=== PATIENT | female | born 1950 | race Hispanic/Latino ===

== ENCOUNTER → 2017-05-17 | Outpatient (CLI) | payer MEDICARE ==
[~2017-05-17] MED LIST: ADVAIR 250-501 EACH INH; ASPIRIN EC81 MG PO; CALTRATE 600 W1 EACH PO; CENTRUM SILVER1 EAC3 PO; CYCLOBENZAPRINE10 MG PO; DUONEB INH; FOLIC ACID1 MG PO; FUROSEMIDE40 MG PO; HYDROXYCHLOROQ200 MG PO; JEVITY237 ML GT; LIDODERM700 MG TOP; LISINOPRIL10 MG PO; LORAZEPAM0.5 MG PO; MAGNESIUM OXID400 MG PO; METHOTREXATE2.5 MG PO; METOCLOPRAMIDE10 MG PO; METOPROLOL SUCC25 MG PO; MIRTAZAPINE15 MG PO; NYSTATIN1 EAC1; NYSTATIN1 EAC1 TOP; PANTOPRAZOLE SO40 MG PO; POTASSIUM CHLO20 ME1; POTASSIUM CHLO20 ME1 PO; PREDNISONE10 MG PO; PREDNISONE20 MG PO; RANITIDINE HCL300 MG PO; REGLAN10 MG; RISPERIDONE0.25 MG PO; SERTRALINE HCL50 MG PO; SPIRONOLACTONE25 MG PO; TRUBIOTIC PO; TYLENOL325 MG PO; ULTRAM50 MG PO; VITAMIN D32000 UNIT PO; XARELTO20 MG PO; XOPENEX HFA15 GM; XOPENEX HFA15 GM NEB; ZOFRAN ODT4 MG; ZOFRAN ODT4 MG PO; ZOFRAN ODT4 MG SL; ZYRTEC10 M3; ZYRTEC10 MG PO; [UNRECOGNIZED DRUG - OTHER] PO
--- NOTE | 2017-05-17 11:27 | Diagnostic Imaging Report ---
PROCEDURE: Frontal and lateral views of the chest. COMPARISON: 01/15/17 INDICATIONS: FOLLOW UP FOR PNEUMONIA FINDINGS: Lines/tubes: None. Partially imaged IVC filter. Lungs: The lungs are well inflated and clear. There is no evidence of pneumonia or pulmonary edema. Pleura: There is no pleural effusion or pneumothorax. Heart and mediastinum: The heart and the mediastinum are normal. Bones: No acute bony abnormality. IMPRESSION: 1. No acute cardiopulmonary disease. Dictated by: Layton Munoz M.D. on 05/17/2017 at 11:28 Electronically approved by: Layton Munoz M.D. on 05/17/2017 at 11:28
== END | disposition home or self-care (01) ==
LOC: RAD 10:58
DX: Z09 Encounter for follow-up examination after completed treatment for conditions other than malignant neoplasm (principal); J18.9 Pneumonia, unspecified organism
CPT/HCPCS: 71046

== ENCOUNTER 2017-05-24 18:34 | Inpatient (IN) | payer MEDICARE ==
[~2017-05-24] VITALS: Ht 154.9 cm; Wt 76.2 kg
[2017-05-24] MEDS: SODIUM CHLORIDE 0.9% 1000ML 1,000 ML IV SCH ×2 (05:00→12:00)
[~2017-05-24 18:34] MED LIST changes: -CLINDAMYCIN HC300 MG PO; -LASIX40 MG PO
--- OUTSIDE RECORDS SUMMARY | 2017-05-24 18:37 | XMS REPORT ---
Author Author [facility] Address Unknown Phone Unavailable Care Team Providers Care Receiving Room Clerk Name Role Phone MAKEDA THOMAS Unavailable Unavailable ANGIE ALVA Unavailable Unavailable THESTRUSAPNA Nguyen Unavailable Unavailable Problems This patient has no known problems. Allergies, Adverse Reactions, Alerts This patient has no known allergies or adverse reactions. Medications This patient has no known medications. Results Test Description Test Time Test Comments Text Results Atomic Results Result Comments CHEST 2 VIEWS [place] [address] Patient Name: RIMA MASCORRO MR #: [id number] : 1950 Age/Sex: 67/F Req #: [id number] Adm Physician: Ordered by: MAKEDA THOMAS MD Report #: [id number] Location: [facility] Room/Bed: Procedure: [id number] DX/ CHEST 2 VIEWS Exam Date: 05/24/17 Exam Time: 1741 REPORT STATUS: Signed PROCEDURE: Frontal and lateral views of the chest. COMPARISON: 05/17/2017 and 01/15/2017 INDICATIONS: PNEUMONIA FINDINGS: Lines/tubes: None. Lungs: The lungs are well inflated and clear. There is no evidence of pneumonia or pulmonary edema. Pleura: There is no pleural effusion or pneumothorax. Heart and mediastinum: The heart and the mediastinum are normal. Bones: No acute bony abnormality. Multilevel spondylosis of the thoracic spine IMPRESSION: 1. No acute cardiopulmonary disease. Dictated by: Janis Christian M.D. on 05/24/2017 at 18:09 Electronically approved by: Janis Christian M.D. on 05/24/2017 at 18:09 Dictated By: JANIS CHRISTIAN MD 08 Transcribed By: AMAN on 05/24/171808 COPY TO: MAKEDA THOMAS MD CHEST 2 VIEWS [place] [address] Patient Name: RIMA MASCORRO MR #: [id number] : 1950 Age/Sex: 67/F Req #: [id number] Adm Physician: Ordered by: MAKEDA THOMAS MD Report #: [id number] Location: [facility] Room/Bed: Procedure: [id number] DX/ CHEST 2 VIEWS Exam Date: 05/17/17 Exam Time: 1100 REPORT STATUS: Signed PROCEDURE: Frontal and lateral views of the chest. COMPARISON: 01/15/17 INDICATIONS: FOLLOW UP FOR PNEUMONIA FINDINGS: Lines/tubes: None. Partially imaged IVC filter. Lungs: The lungs are well inflated and clear. There is no evidence of pneumonia or pulmonary edema. Pleura: There is no pleural effusion or pneumothorax. Heart and mediastinum: The heart and the mediastinum are normal. Bones: No acute bony abnormality. IMPRESSION: 1. No acute cardiopulmonary disease. Dictated by: Layton Beaver M.D. on 11/2017 at 11:28 Electronically approved by: Layton Beaver M.D. on 05/17 at 11:28 Dictated By: LAYTON BEAVER MD 27 Transcribed By: AMAN on 05/17/171127 COPY TO: MAKEDA THOMAS MD ABDOMEN COMP INCL UPR or DECUB [place] [address] Patient Name: RIMA MASCORRO MR #: [id number] : 1950 Age/Sex: 66/F Req #: [id number] Adm Physician: MAKEDA THOMAS MD Ordered by: LIUDMILA EDWARDS MD Report #: [id number] Location: [facility] Room/Bed: [facility] [place][note 2] Procedure: [id number] DX/ABDOMEN COMP INCL UPR or DECUB Exam Date: 01/16/17 Exam Time: 0625 REPORT STATUS: Signed EXAM: Abdomen, 2 Views INDICATION: Pain. COMPARISON: CT abdomen and pelvis 01/14/2017. Abdomen 3 views 01/15/2017 FINDINGS: LINES: Gastrostomy catheter balloon projecting over the expected region of the distal stomach. Bowel: No air fluid levels.. No pneumoperitoneum.. Moderate amount of retained feces and air are noted in the colon and rectum. Stable cortical calcification projects over the inferior pole of the left kidney. No calcifications project over the right renal shadow, expected course of the ureters bilaterally, and bladder. Soft tissues: IVC filter. Bones: No acute osseous abnormality. Degenerative changes of the lumbar spine and pelvis. Impression: No acute radiographic abnormality. Signed by: Dr. Pk Brian M.D. on 2016 7:57 AM Dictated By: PK BRIAN MD 6 Transcribed By: NAMRATA on 01/16/17756 COPY TO: LIUDMILA EDWARDS MD CHEST SINGLE (PORTABLE) [place] [address] Patient Name: RIMA MASCORRO MR #: [id number] : 1950 Age/Sex: 66/F Req #: [id number] Adm Physician: MAKEDA THOMAS MD Ordered by: LIUDMILA EDWARDS MD Report #: [id number] Location: [facility] Room/Bed: [facility] [place][note 2] Procedure: [id number] DX/CHEST SINGLE (PORTABLE) Exam Date: 01/15/17 Exam Time: 1458 REPORT STATUS: Signed EXAMINATION: Chest, CHEST SINGLE (PORTABLE) INDICATION: Chest pain COMPARISON: None FINDINGS: LINES: None. Heart: Normal cardiac silhouette. Vascular: The pulmonary vasculature is within normal limits. Atherosclerotic calcifications of the aortic arch. Mediastinum: No mediastinal, hilar, or axillary mass or lymphadenopathy. Lungs: No parenchymal mass. No focal consolidation. Pleura: No pleural effusion. No pneumothorax. Bones: No acute osseous abnormality. Degenerative changes of the thoracic spine. Soft tissues: Normal. Impression: No acute radiographic abnormality. Signed by: Dr. Pk Brian M.D. on 01/15/2017 3:20 PM Dictated By: PK BRIAN MD 1520 Transcribed By: NAMRATA on 01/15/17 152 COPY TO: LIUDMILA EDWARDS MD ABDOMEN COMP INCL UPR or DECUB [place] [address] Patient Name: RIMA MASCORRO MR #: [id number] : 1950 Age/Sex: 66/F Req #: [id number] Adm Physician: MAKEDA THOMAS MD Ordered by: MORENITA ISAAC MD Report #: [id number] Location: [facility] Room/Bed: [place] [address] Procedure: [id number] DX/ABDOMEN COMP INCL UPR or DECUB Exam Date: 01/15/17 Exam Time: 0740 REPORT STATUS: Signed EXAM: Abdomen, 3 Views INDICATION: Pain. COMPARISON: CT abdomen and pelvis 01/14/2017. FINDINGS: LINES: None. Bowel: No air fluid levels.. No pneumoperitoneum.. Moderate amount of retained feces and air are noted in the colon and rectum. Stable cortical calcification projects over the inferior pole of the left kidney. No calcifications project over the right renal shadow, expected course of the ureters bilaterally, and bladder. Soft tissues: IVC filter. Bones : No acute osseous abnormality. Degenerative changes of the lumbar spine and pelvis. Impression: No acute radiographic abnormality. Signed by: Dr. Pk Brian M.D. on 01/15/2017 8:43 AM Dictated By: PK BRIAN MD 2 Transcribed By: NAMRATA on 01/15/17842 COPY TO: MORENITA ISAAC MD CT ABDOMEN/PELVIS [place] [address] Patient Name: RIMA MASCORRO MR #: [id number] : 1950 Age/Sex: 66/F Req # : [id number] Adm Physician: Ordered by: MORENITA ISAAC MD Report # : [id number] Location: ER Room/Bed: Procedure: [id number] CT/CT ABDOMEN/PELVIS WO Exam Date: 01/14/17 Exam Time: 2315 REPORT STATUS: Signed EXAM: CT ABDOMEN AND PELVIS without IV CONTRAST DATE: 01/14/2017 9:55 PM Time stamp on Exam: 2316 hours INDICATION: Vomiting, abdominal pain COMPARISON: CT of the abdomen and pelvis April 29, 2016 TECHNIQUE: The abdomen and pelvis were scanned using a multidetector helical scanner. Coronal and sagittal reformations were obtained. Routine protocol performed. IV Contrast: None Oral Contrast: Gastrografin CTDIvol has been reviewed. It is below the limits set by the Radiation Protocol Committee (RPC). FINDINGS: LOWER THORAX: Tiny centrilobular nodules in each lung base consistent with nonspecific bronchiolitis. LIVER: No masses BILIARY: The gallbladder is not visualized. No ductal dilation. SPLEEN: No masses PANCREAS: The previously described pancreatic tail mass is not well characterized without IV contrast, however is smaller in size measuring 5 x 4.8 cm (previously 6.2 x 6.5 cm). ADRENALS: No nodules KIDNEYS: Stable coarse cortical calcification interpolar region of the left kidney. No nephroureterolithiasis or hydronephrosis. GI TRACT: Gastrostomy tube in the antrum of the stomach. In the previously described area of distal ileal narrowing and tethering, there is now increased distention of the involved loops of small bowel with associated lymphadenopathy, mesenteric edema and wall thickening. VESSELS: Advanced atherosclerotic changes. Infrarenal inferior vena cava filter. PERITONEUM/RETROPERITONEUM: No free air or fluid LYMPH NODES: Reactive mesenteric lymph nodes. REPRODUCTIVE ORGANS: Stable appearance. BLADDER: Unremarkable SOFT TISSUES: Unremarkable BONES: No suspicious bone lesions. IMPRESSION: In the right lower quadrant there has been interval worsening of the previously described tethered loops of distal ileum , now with increased dilation of isolated loops of small bowel, wall thickening and adjacent inflammation. Findings are concerning for at least partial closed-loop bowel obstruction. Please clinically correlate for possible bowel ischemia. Signed by: Dr. Prosper Phillips M.D. on 2016 11:47 PM Dictated By: PROSPER PHILLIPS MD 46 Transcribed By: NAMRATA on 01/14/172346 COPY TO: MORENITA ISAAC MD KNEE 1-2 VIEWS BILATERAL [place] [address] Patient Name: RIMA MASCORRO MR #: [id number] : 1950 Age/Sex: 66/F Req #: [id number] Adm Physician: Ordered by: ANGIE ALVA Report #: [id number] Location: [facility] Room/Bed: Procedure: [id number] DX/KNEE 1-2 VIEWS BILATERAL Exam Date: 12/14/16 Exam Time: 1130 REPORT STATUS: Signed PROCEDURE: KNEE 1-2 VIEWS BILATERAL COMPARISON: None. INDICATIONS: ARTHRITIS FINDINGS: Right: There are no acute, displaced fractures, dislocations, lytic or blastic lesions. The bones are well-mineralized. Minimal degenerative changes with presence of small patellar and tibial spine osteophytes. Joint spaces are relatively well-preserved. No suprapatellar effusion. Left: There are no acute, displaced fractures, dislocations, lytic or blastic lesions. The bones are well-mineralized. Minimal degenerative changes, with presence of tiny patellar and tibial spine osteophytes. oint spaces are relatively well-preserved. Trace right suprapatellar effusion. CONCLUSION: Minimal bilateral degenerative changes. No acute abnormalities. Linda Billingsley M.D. Dictated by: Lidna Billingsley M.D. on 12/14/2016 at 14:54 Electronically approved by: Linda Billingsley M.D. on 12/14/2016 at 14:54 Dictated By: LINDA BILLINGSLEY MD 1454 Transcribed By: AMAN on 12/14/16 1454 COPY TO: ANGIE ALVA (NON STAFF) HAND THREE VIEWS BILATERAL [place] [address] Patient Name: RIMA MASCORRO MR #: [id number] : 1950 Age/Sex: 66/F Req #: [id number] Adm Physician: Ordered by: ANGIE ALVA Report #: [id number] Location: [facility] Room/Bed: Procedure: [id number] DX/HAND THREE VIEWS BILATERAL Exam Date: 12/14/16 Exam Time: 1130 REPORT STATUS: Signed PROCEDURE: HAND THREE VIEWS BILATERAL TECHNIQUE: INDICATION: COMPARISON: None. FINDINGS: Degenerative changes of the wrist are visualized with multiple carpal carpal joints and near fusion of the bilateral radiocarpal joints. Relative sparing of the proximal and distal interphalangeal joints in the metacarpophalangeal joints. No acute fracture or dislocation. Bone mineralization is within normal limits. No expansile or lytic or sclerotic lesion. CONCLUSION: No acute radiographic abnormality. Degenerative changes of multiple carpal carpal joints and the bilateral radiocarpal joints. Dictated by: Pk Brian M.D. on 2016 at 11:53 Electronically approved by: Pk Brian M.D. on 2016 at 11:53 Dictated By: PK BRIAN MD 1153 Transcribed By: AMAN on 12/15/16 1153 COPY TO: ANGIE ALVA (NON STAFF) CHEST SINGLE (PORTABLE) [place] [address] Patient Name: RIMA MASCORRO MR #: [id number] : 1950 Age/Sex: 66/F Req #: [id number] Adm Physician: Ordered by: SAPNA ECHEVERRIA MD Report #: [id number] Location: ER Room/Bed: Procedure: [id number] DX/CHEST SINGLE (PORTABLE) Exam Date: 11/26/16 Exam Time: 1419 REPORT STATUS: Signed PROCEDURE: A single AP view of the chest. COMPARISON: Chest portable 07/31/2016. INDICATIONS: CANT SWALLOW SINCE YESTREDAY FINDINGS: Lines/tubes: None. Lungs: The lungs are well inflated and clear. There is no evidence of pneumonia or pulmonary edema. Pleura: There is no pleural effusion or pneumothorax. Heart and mediastinum: The heart and the mediastinum are unremarkable. Atherosclerotic calcifications. Bones: No acute bony abnormality. Degenerative changes of the thoracic spine. IMPRESSION: No acute radiographic abnormality. Dictated by: Pk Brian M.D. on 11/26/2016 at 14:48 Electronically approved by: Pk Brian M.D. on 11/26/2016 at 14:48 Dictated By: PK BRIAN MD 1448 Transcribed By: AMAN on 11/26/16 1448 COPY TO: SAPNA ECHEVERRIA MD
[2017-05-24] MEDS ORDERED: ACETAMINOPHEN 1000 MG/100 ML IV STA (19:31)
[2017-05-24] MEDS ORDERED: DIATRIZOATE MEGL/DIATRIZOA SOD 30 ML BTL PO ONE (19:42)
[2017-05-24] MEDS ORDERED: SODIUM CHLORIDE 0.9% 1000ML 1,000 ML IV ONE (19:45)
[2017-05-24] MEDS ORDERED: ONDANSETRON HCL INJ 2 MG/ML VIAL IV STA (19:47)
[2017-05-24 19:57] LABS: BASOPHILS # (AUTO) 0.1 (0.0-0.1); BASOPHILS % 0.3 % (0.0-1.0); HEMATOCRIT 44.1 % (34.2-44.1); HEMOGLOBIN 14.4 g/dL (12.0-16.0); LYMPHOCYTES # (AUTO) 1.9 (1.0-3.2); LYMPHOCYTES % 10.6 % (18.0-39.1); MEAN CORPUSCULAR HEMOGLOBIN 32.1 pg (28-32); MEAN CORPUSCULAR HGB CONC 32.7 g/dL (31-35); MEAN CORPUSCULAR VOLUME 98.4 fL (81-99); MONOCYTES # (AUTO) 2.1 (0.2-0.8); MONOCYTES % 11.3 % (4.4-11.3); NEUTROPHILS % 77.2 % (38.7-80.0); PLATELET COUNT 265 x10e3/uL (140-360); RED BLOOD COUNT 4.48 x10e6/uL (3.6-5.1); RED CELL DISTRIBUTION WIDTH 15.4 % (11.7-14.4)
[2017-05-24 20:06] LABS: BILIRUBIN,URINE 1+ (NEGATIVE); CLARITY,URINE SL CLOUDY (CLEAR); COLOR,URINE YELLOW (YELLOW); KETONES,URINE NEGATIVE (NEGATIVE); LEUKOCYTE ESTERASE ,URINE NEGATIVE (NEGATIVE); NITRITE,URINE NEGATIVE (NEGATIVE); PROTEIN,URINE DIPSTICK 1+ (NEGATIVE); URINE UROBILINOGEN 0.2 mg/dL (0.2 - 1)
[2017-05-24 20:10] LABS: EPITHELIAL CELLS,URINE FEW /LPF; RBC,URINE 0-5 /HPF (0-5)
[2017-05-24 20:16] LABS: ALBUMIN 3.3 g/dL (3.5-5.0); ALBUMIN/GLOBULIN RATIO 0.6 (0.8-2.0); ANION GAP 15.8 mmol/L (8-16); CALCIUM 9.4 mg/dL (8.4-10.2); CREATININE, SERUM 1.22 mg/dL (0.57-1.11); POTASSIUM 3.8 mmol/L (3.5-5.1)
[2017-05-24 20:28] LABS: LYMPHOCYTES % (MANUAL) 10 % (19-48); MONOCYTES % (MANUAL) 9 % (3.4-9.0); NEUTROPHILS % (MANUAL) 81 % (40-74); PLATELET ESTIMATE ADEQUATE; PLATELET MORPHOLOGY COMMENT NORMAL; RBC MORPHOLOGY COMMENT NORMAL
--- NOTE | 2017-05-24 22:17 | Diagnostic Imaging Report ---
EXAM: CT ABDOMEN/PELVIS WO DATE: 05/24/2017 7:31 PM INDICATION: Abdominal pain, fever COMPARISON: 01/14/2017 TECHNIQUE: The abdomen and pelvis were scanned using a multidetector helical scanner. Coronal and sagittal reformations were obtained. Routine protocol performed. IV Contrast: 0 ml Isovue 370 Oral contrast given. FINDINGS: Lack of IV contrast decreases sensitivity in evaluating abdominal and pelvic organs. LOWER THORAX: Mild bibasilar opacity and centrilobular nodules, similar to prior. LIVER/BILIARY: No masses. No ductal dilatation. GALLBLADDER: Unremarkable SPLEEN: Unremarkable PANCREAS: Redemonstration a complex cystic and solid appearing mass of the pancreatic tail measuring 4 x 4.7 cm; this appears smaller from prior (5 x 4.8 cm). ADRENALS: No nodules KIDNEYS: Symmetric perfusion. No enhancing masses. No hydronephrosis. GI TRACT: G-tube in place. Distended loops of small bowel with more marked dilation and fecalization of contents just proximal to the transition at the terminal ileum, which is narrowed (3-4 cm segment). Moderate associated mesenteric edema. No free fluid. VESSELS: Moderate to severe atherosclerotic calcifications. IVC filter is noted. PERITONEUM/RETROPERITONEUM: No free air LYMPH NODES: No lymphadenopathy REPRODUCTIVE ORGANS/BLADDER: Unremarkable SOFT TISSUES: Scarring along the lower anterior abdominal wall; correlate with history of prior . BONES: Severe multilevel degenerative changes. IMPRESSION: Examination is degraded by the lack of IV contrast. 1. Small bowel obstruction with transition at the terminal ileum, presumably related to stricture from known Crohn's disease. Moderate associated mesenteric edema mild free fluid. 2. Slight decrease in size of complex pancreatic tail lesion, incompletely assessed without IV contrast. Signed by: Dr Giselle Carr MD on 05/24/2017 10:14 PM
[2017-05-24] MEDS: PIPER-TAZ 3.375 GM 50 ML IV SCH (23:09)
[2017-05-25] VITALS (8 sets, daily range): BP systolic 104–170; BP diastolic 52–67
[2017-05-25] MEDS: ACETAMINOPHEN 1000 MG/100 ML IV SCH ×3 (00:26→11:37)
[2017-05-25] MEDS: METRONIDAZOLE 500MG/NS 100ML 100 ML IV SCH ×5 (01:02→23:02)
[2017-05-25] MEDS: PIPER-TAZ 3.375 GM 50 ML IV SCH ×3 (05:19→21:30)
[2017-05-25 06:40] LABS: BASOPHILS # (AUTO) 0.1 (0.0-0.1); BASOPHILS % 0.4 % (0.0-1.0); EOSINOPHILS % 0.1 % (0.0-6.0); HEMOGLOBIN 12.2 g/dL (12.0-16.0); LYMPHOCYTES # (AUTO) 2.5 (1.0-3.2); LYMPHOCYTES % 18.8 % (18.0-39.1); MEAN CORPUSCULAR HEMOGLOBIN 31.8 pg (28-32); MEAN CORPUSCULAR HGB CONC 32.1 g/dL (31-35); NEUTROPHILS # (AUTO) 8.6 (2.1-6.9); NEUTROPHILS % 65.2 % (38.7-80.0); PLATELET COUNT 228 x10e3/uL (140-360); RED BLOOD COUNT 3.84 x10e6/uL (3.6-5.1); RED CELL DISTRIBUTION WIDTH 15.5 % (11.7-14.4)
[2017-05-25 07:17] LABS: ALBUMIN 2.6 g/dL (3.5-5.0); ALBUMIN/GLOBULIN RATIO 0.6 (0.8-2.0); ANION GAP 11.3 mmol/L (8-16); CALCIUM 8.2 mg/dL (8.4-10.2); CREATININE, SERUM 0.98 mg/dL (0.57-1.11); POTASSIUM 3.3 mmol/L (3.5-5.1)
[2017-05-25 08:32] LABS: ANISOCYTOSIS SLIGHT; BAND NEUTROPHILS % (MANUAL) 2 %; LYMPHOCYTES % (MANUAL) 14 % (19-48); MONOCYTES % (MANUAL) 12 % (3.4-9.0); NEUTROPHILS % (MANUAL) 72 % (40-74); PLATELET ESTIMATE ADEQUATE; PLATELET MORPHOLOGY COMMENT NORMAL; RBC MORPHOLOGY COMMENT NORMAL
[2017-05-25] MEDS: SODIUM CHLORIDE 0.9% 1000ML 1,000 ML IV SCH ×3 (11:30→21:57)
[2017-05-25] MEDS: ONDANSETRON HCL INJ 2 MG/ML VIAL IV PRN (11:37)
[2017-05-25] MEDS ORDERED: HYDROMORPHONE 1MG/1ML INJ IV PRN (17:00)
[2017-05-25] MEDS ORDERED: ACETAMINOPHEN 1000 MG/100 ML IV PRN (17:00)
[2017-05-26] VITALS (9 sets, daily range): BP systolic 114–134; BP diastolic 56–60
[2017-05-26] MEDS: METRONIDAZOLE 500MG/NS 100ML 100 ML IV SCH ×4 (05:41→23:14)
[2017-05-26] MEDS: SODIUM CHLORIDE 0.9% 1000ML 1,000 ML IV SCH ×3 (09:20→21:37)
[2017-05-26] MEDS: PIPER-TAZ 3.375 GM 50 ML IV SCH ×2 (13:51→21:37)
[2017-05-27] VITALS: BP 113/56
[2017-05-27] MEDS: PIPER-TAZ 3.375 GM 50 ML IV SCH ×3 (05:12→22:30)
[2017-05-27] MEDS: SODIUM CHLORIDE 0.9% 1000ML 1,000 ML IV SCH ×2 (05:12→15:25)
[2017-05-27] MEDS: METRONIDAZOLE 500MG/NS 100ML 100 ML IV SCH ×3 (05:12→18:01)
[2017-05-27 07:05] VITALS: BP 122/60
[2017-05-27 07:35] VITALS: BP 122/60
[2017-05-27 11:25] VITALS: BP 134/63
[2017-05-27 15:46] VITALS: BP 167/65
[2017-05-27 20:00] VITALS: BP 137/60
[2017-05-28] VITALS (7 sets, daily range): BP systolic 131–152; BP diastolic 60–67
[2017-05-28] MEDS: ONDANSETRON HCL INJ 2 MG/ML VIAL IV PRN (00:21)
[2017-05-28] MEDS: METRONIDAZOLE 500MG/NS 100ML 100 ML IV SCH ×4 (00:24→18:45)
[2017-05-28] MEDS: SODIUM CHLORIDE 0.9% 1000ML 1,000 ML IV SCH ×3 (02:00→22:33)
[2017-05-28] MEDS ORDERED: DIATRIZOATE MEGL/DIATRIZOA SOD 30 ML BTL PO ONE ×2 (02:12→17:25)
[2017-05-28] MEDS: PIPER-TAZ 3.375 GM 50 ML IV SCH ×2 (06:10→14:36)
--- NOTE | 2017-05-28 15:24 | Diagnostic Imaging Report ---
EXAM: Abdomen 2 Views INDICATION: \S\small bowel obstruction COMPARISON: CT abdomen and pelvis 05/24/2017. KUB 01/16/2017. FINDINGS: Relative paucity of stool in the colon. No dilated loops of small bowel. Several air-filled loops of small bowel in the midabdomen measured 3.5 cm. Multiple air-fluid levels visualized. Infrarenal IVC filter is in place with the superior end at L2 superior endplate. No renal calculi. 0.9 cm parenchymal calcification in the lower pole of the left kidney. Diffuse small vessel vascular calcifications. No abnormal soft tissue masses. 2.3 x 8.7 cm Triangular wedge-shaped object overlies the pelvis. Moderate degenerative changes in the lumbar spine and pelvis. IMPRESSION: 1. 2.3 x 8.7 cm Triangular wedge-shaped object overlies the pelvis. This may be part of the patient's percutaneous gastrostomy tube. 2. Prominent small bowel loops in the midabdomen with air-fluid levels, likely small bowel obstruction. Signed by: Dr. Femi Diaz M.D. on 05/28/2017 3:20 PM
[2017-05-28] MEDS ORDERED: ACETAMINOPHEN 325 MG SUPP PR PRN (16:00)
[2017-05-28 16:27] LABS: BASOPHILS % 0.3 % (0.0-1.0); EOSINOPHILS # (AUTO) 0.1 (0.0-0.4); HEMATOCRIT 34.9 % (34.2-44.1); HEMOGLOBIN 10.9 g/dL (12.0-16.0); LYMPHOCYTES # (AUTO) 3.7 (1.0-3.2); LYMPHOCYTES % 35.1 % (18.0-39.1); MEAN CORPUSCULAR HEMOGLOBIN 31.6 pg (28-32); MEAN CORPUSCULAR HGB CONC 31.2 g/dL (31-35); MEAN CORPUSCULAR VOLUME 101.2 fL (81-99); MONOCYTES % 9.7 % (4.4-11.3); NEUTROPHILS # (AUTO) 5.5 (2.1-6.9); NEUTROPHILS % 52.7 % (38.7-80.0); PLATELET COUNT 196 x10e3/uL (140-360); RED BLOOD COUNT 3.45 x10e6/uL (3.6-5.1); RED CELL DISTRIBUTION WIDTH 15.6 % (11.7-14.4)
[2017-05-28 16:44] LABS: ANION GAP 8.9 mmol/L (8-16); BLOOD UREA NITROGEN 9 mg/dL (7-26); BUN/CREATININE RATIO 11 (6-25); CALCIUM 7.6 mg/dL (8.4-10.2); CARBON DIOXIDE 21 mmol/L (22-29); CHLORIDE 111 mmol/L (98-107); CREATININE, SERUM 0.81 mg/dL (0.57-1.11); EST GLOMERULAR FILTRATION RATE > 60 ML/MIN (60-); GLUCOSE 96 mg/dL (74-118); MAGNESIUM 1.5 MG/DL (1.3-2.1); SODIUM 138 mmol/L (136-145)
[2017-05-28 17:16] LABS: POTASSIUM 2.9 mmol/L (3.5-5.1)
[2017-05-28] MEDS ORDERED: POTASSIUM CHLORIDE 20MEQ/100ML 100 ML IV ONE (18:30)
[2017-05-28] MEDS ORDERED: CLINDAMYCIN HC300 MG PO (19:45)
[2017-05-28] MEDS ORDERED: LASIX40 MG PO (19:46)
[2017-05-28] MEDS: NYSTATIN 15 GM POWDER UD BTL TOP SCH (22:00)
[2017-05-28] MEDS: ONDANSETRON HCL 4 MG ORAL DISINTEGRATING TAB PO PRN (22:20)
--- NOTE | 2017-05-28 23:59 | Diagnostic Imaging Report ---
CHEST XRAY LINE PLACEMENT, Technique: CHEST XRAY LINE PLACEMENT Comparison: 01/15/2017, 07/31/2016 Clinical history: \S\PICC LINE PLACE TO R UPPER ARM DISCUSSION: See impression IMPRESSION: 1. Lines/tubes: Right PICC terminates over the expected proximal SVC. 2. Stable cardiomediastinal silhouette. 3. Mild central vascular congestion/crowding. 4. No effusion or pneumothorax. Signed by: Dr Giselle Carr MD on 05/28/2017 11:56 PM
[2017-05-29] VITALS (7 sets, daily range): BP systolic 129–145; BP diastolic 58–67
[2017-05-29] MEDS: PIPER-TAZ 3.375 GM 50 ML IV SCH ×4 (00:16→20:54)
[2017-05-29] MEDS ORDERED: SODIUM CHLORIDE 0.9% 50ML 50 ML ONE (00:53)
[2017-05-29] MEDS ORDERED: IOPAMIDOL 370 MG/ML 200 ML INFUS..BTL INJ ONE (00:53)
[2017-05-29] MEDS: METRONIDAZOLE 500MG/NS 100ML 100 ML IV SCH ×4 (01:30→18:37)
--- NOTE | 2017-05-29 02:07 | Diagnostic Imaging Report ---
EXAM: CT ABDOMEN/PELVIS W DATE: 05/29/2017 12:20 AM INDICATION: Small bowel obstruction COMPARISON: 05/24/2017 TECHNIQUE: The abdomen and pelvis were scanned using a multidetector helical scanner. Coronal and sagittal reformations were obtained. Routine protocol performed. IV Contrast: 100 ml Isovue 370 Oral contrast was administered. FINDINGS: LOWER THORAX: Development of small pleural effusion and atelectasis. Increased cluster of centrilobular nodules in the right middle lobe, likely infectious. LIVER/BILIARY: No masses. No ductal dilatation. GALLBLADDER: Unremarkable SPLEEN: Unremarkable PANCREAS: Stable complex cystic and solid appearing mass of the pancreatic tail measuring 4.1 x 4.8 cm. ADRENALS: No nodules KIDNEYS: Symmetric perfusion. No enhancing masses. No hydronephrosis. GI TRACT: G-tube in place. Improved small bowel dilatation from prior. There is mild small bowel wall thickening and strictures involving the ileum (about 3 cm) and terminal ileum (about 5-6 cm segment). Moderate associated mesenteric edema. No free fluid VESSELS: Unchanged IVC filter. Moderate atherosclerotic changes. PERITONEUM/RETROPERITONEUM: No free air. Trace pelvic free fluid. Residual stranding and edema in the right lower quadrant. LYMPH NODES: Scattered small reactive nodes in the right lower quadrant. REPRODUCTIVE ORGANS/BLADDER: Unremarkable SOFT TISSUES: Unremarkable BONES: No suspicious bone lesions. IMPRESSION: Resolving small bowel obstruction with persistent findings of Crohn's disease. Signed by: Dr Giselle Carr MD on 05/29/2017 2:03 AM
[2017-05-29] MEDS: SODIUM CHLORIDE 0.9% 1000ML 1,000 ML IV SCH ×2 (05:17→22:33)
[2017-05-29 07:49] LABS: ANION GAP 9.1 mmol/L (8-16); BLOOD UREA NITROGEN 6 mg/dL (7-26); BUN/CREATININE RATIO 7 (6-25); CARBON DIOXIDE 22 mmol/L (22-29); CHLORIDE 110 mmol/L (98-107); CREATININE, SERUM 0.82 mg/dL (0.57-1.11); EST GLOMERULAR FILTRATION RATE > 60 ML/MIN (60-); GLUCOSE 79 mg/dL (74-118); POTASSIUM 3.1 mmol/L (3.5-5.1); SODIUM 138 mmol/L (136-145)
--- NOTE | 2017-05-29 08:48 | Diagnostic Imaging Report ---
Two view abdomen series. CPT 49139 CLINICAL HISTORY: Small bowel obstruction, history of Crohn's disease TECHNIQUE: Flat and upright views of the abdomen obtained. COMPARISON: CT abdomen/pelvis 0102 hours. FINDINGS: Bowel: No enteric contrast is identified on these images. Small bowel loops in the midabdomen measuring up to 3.7 cm in diameter with multiple air-fluid levels. There is no pneumatosis. Calcifications: Calcification in the left hemiabdomen corresponds to a left renal calcification measuring 10 mm. Free air: No free air is seen under hemidiaphragms on upright film. Medical devices: Percutaneous gastrostomy and IVC filter are stable. Other: There is excreted contrast in the bladder. No evidence of contrast outlining the renal shadows or along the course of the ureters. Lung bases: Clear. IMPRESSION: Dilated small bowel loops with air-fluid levels consistent with partial small bowel obstruction. No perforation. Signed by: Dr. Kelechi Tan MD on 05/29/2017 8:44 AM
[2017-05-29] MEDS: NYSTATIN 15 GM POWDER UD BTL TOP SCH ×2 (09:00→17:23)
[2017-05-29] MEDS ORDERED: HYDROCODONE/APAP 7.5MG-325MG 1 EA TAB PO PRN (10:00)
[2017-05-29] MEDS ORDERED: HYDROMORPHONE 1MG/1ML INJ IV PRN (10:00)
[2017-05-29] MEDS ORDERED: TRAMADOL HCL 50 MG TAB PO PRN (10:45)
[2017-05-29] MEDS ORDERED: POTASSIUM CHLORIDE 20 MEQ TAB CR PO ONE ×2 (11:30→16:15)
--- NOTE | 2017-05-29 15:30 | Progress Note ---
DATE: INTERNAL MEDICINE PROGRESS NOTE She is doing much better. She is tolerating a liquid diet. CT of the abdomen showed resolving of the small-bowel obstruction. PHYSICAL EXAMINATION VITALS: Blood pressure 136/63, temperature 97.2, heart rate 69 per minute, respiratory rate is 16 per minute, oxygen saturation 97%. BLOOD WORK: We have a BMP with sodium of 138, potassium 3.1, chloride 110, CO2 22, BUN 6, creatinine 0.82, glucose 79. The CBC with white blood count 17.4, hemoglobin 10.9, hematocrit 34.9, and platelet count 186,000. AST 21, ALT 20, total bilirubin 1, alkaline phosphatase 98. FINAL IMPRESSION 1. Small-bowel obstruction, most likely secondary to Crohn's disease exacerbation, which is resolving. 2. Coronary artery disease. 3. Crohn disease. 4. Hypokalemia. PLAN OF TREATMENT: Continue liquid diet. Continue Zosyn 3.375 g IVPB q.8 h. Flagyl 500 mg IV q.6 h. Continue normal saline at 125 mL an hour. Wean off as tolerated once she is able to tolerate the liquid diet. Zofran 4 mg IV q.4 h. as needed. Tramadol 50 mg q.6 h. as needed. Tylenol 325 mg q.4 h. as needed. Nystatin twice a day. Also, potassium has been replaced. We are going to recheck the potassium level tomorrow. Magnesium is normal. Job#: [id number] MELANIE
[2017-05-29] MEDS: ONDANSETRON HCL 4 MG ORAL DISINTEGRATING TAB PO PRN (21:52)
[2017-05-30] VITALS (8 sets, daily range): BP systolic 134–156; BP diastolic 61–70
[2017-05-30] MEDS: METRONIDAZOLE 500MG/NS 100ML 100 ML IV SCH ×5 (00:06→23:23)
[2017-05-30] MEDS: SODIUM CHLORIDE 0.9% 1000ML 1,000 ML IV SCH ×4 (04:44→14:33)
[2017-05-30] MEDS: PIPER-TAZ 3.375 GM 50 ML IV SCH ×3 (06:23→21:36)
[2017-05-30 07:40] LABS: ANION GAP 10.9 mmol/L (8-16); BLOOD UREA NITROGEN < 5 mg/dL (7-26); CARBON DIOXIDE 20 mmol/L (22-29); CHLORIDE 113 mmol/L (98-107); CREATININE, SERUM 0.81 mg/dL (0.57-1.11); EST GLOMERULAR FILTRATION RATE > 60 ML/MIN (60-); GLUCOSE 79 mg/dL (74-118); POTASSIUM 4.9 mmol/L (3.5-5.1); SODIUM 139 mmol/L (136-145)
[2017-05-30 07:46] LABS: BUN/CREATININE RATIO 6 (6-25)
[2017-05-30 07:48] LABS: CALCIUM 6.6 mg/dL (8.4-10.2)
[2017-05-30] MEDS: NYSTATIN 15 GM POWDER UD BTL TOP SCH ×2 (09:00→16:41)
--- NOTE | 2017-05-30 12:04 | Diagnostic Imaging Report ---
PROCEDURE:ABDOMEN COMP INCL UPR OR DECUB INDICATION:Obstruction. COMPARISON:Abdomen 2 views 05/29/2017. CT abdomen and pelvis 05/29/2017 FINDINGS:Gastrostomy catheter is present with the tip projecting over the expected region of the distal stomach. No air-fluid levels or pneumoperitoneum. Calcification projects over the left midabdomen, unchanged since previous examination. Degenerative changes are present in the lumbar spine. CONCLUSION: No acute radiographic abnormality. Dictated by: Rafa Nance M.D. on 05/30/2017 at 12:06 Electronically approved by: Rafa Nance M.D. on 05/30/2017 at 12:06
[2017-05-30] MEDS: ONDANSETRON HCL INJ 2 MG/ML VIAL IV PRN (19:18)
[2017-05-31] VITALS (7 sets, daily range): BP systolic 125–140; BP diastolic 60–64
[2017-05-31] MEDS: METRONIDAZOLE 500MG/NS 100ML 100 ML IV SCH ×4 (05:41→23:28)
[2017-05-31] MEDS: PIPER-TAZ 3.375 GM 50 ML IV SCH ×3 (06:33→21:42)
[2017-05-31] MEDS: NYSTATIN 15 GM POWDER UD BTL TOP SCH ×2 (07:33→17:18)
[2017-05-31] MEDS: ONDANSETRON HCL 4 MG ORAL DISINTEGRATING TAB PO PRN ×3 (07:33→17:00)
[2017-06-01 01:13] VITALS: BP 125/62
[2017-06-01 04:45] VITALS: BP 141/60
[2017-06-01 07:54] VITALS: BP 147/66
[2017-06-01] MEDS: NYSTATIN 15 GM POWDER UD BTL TOP SCH ×2 (09:00→17:00)
[2017-06-01 11:25] VITALS: BP 148/68
[2017-06-01] MEDS ORDERED: METHOTREXATE SOD 2.5 MG TAB PO SCH (12:15)
[2017-06-01] MEDS ORDERED: LORAZEPAM 0.5 MG TAB PO PRN (12:15)
[2017-06-01] MEDS ORDERED: TRAMADOL HCL 50 MG TAB PO PRN (12:15)
[2017-06-01] MEDS ORDERED: METOPROLOL SUCCINATE 25 MG TAB XL PO PRN (12:15)
[2017-06-01] MEDS ORDERED: MUPIROCIN 2% OINT 22 GM TUBE ONE (16:11)
--- NOTE | 2017-06-01 16:46 | Operative Report ---
DATE OF PROCEDURE: June 01, 2017 REFERRING PHYSICIAN: Dr. Siva Thomas. PROCEDURE PERFORMED: Esophagogastroduodenoscopy with percutaneous endoscopic gastrotomy tube removal. INDICATIONS FOR ESOPHAGOGASTRODUODENOSCOPY: Patient is status post G-tube insertion, dysphagia resolved. Patient is in for an EGD and PEG tube removal. MEDICATION: Patient was done under MAC. Please see anesthesiologist's note. PROCEDURE: With the patient in the supine position, the flexible fiberoptic Olympus gastroscope was introduced into the esophagus under direct visualization without any difficulty. There was some patchy erythema noted in the distal esophagus. The scope was then advanced with ease into the stomach, traversing a moderate-sized hiatal hernia. Mucosa overlying the antrum and the body revealed some patchy erythema, and the pylorus was of normal contour and shape, was intubated with ease, and the scope was advanced all the way to the 2nd portion of the duodenum. The scope was then withdrawn slowly. Mucosa overlying the proximal 2nd portion and the duodenal bulb revealed some patchy erythema. The scope was then withdrawn back into the stomach, and the PEG tube was then removed per the pull traction method. The scope was subsequently withdrawn. Patient tolerated the procedure well. IMPRESSION: 1. Mild distal esophagitis. 2. Hiatal hernia. 3. Gastritis. 4. Percutaneous endoscopic gastrotomy tube removed in the usual traction method. Patient tolerated the procedure well. Job#: [id number] EV cc:SIVA THOMAS MD
[2017-06-01 16:47] VITALS: BP 139/64
[2017-06-01] MEDS ORDERED: LIDOCAINE HCL 2% LOCAL INJ 5 ML SDV VIAL INJ ONE (17:08)
[2017-06-01] MEDS ORDERED: PROPOFOL IV EMULSION 10 MG/ML 50 ML VIAL ONE (17:08)
[2017-06-01 20:00] VITALS: BP 164/72
[2017-06-02] VITALS (8 sets, daily range): BP systolic 125–166; BP diastolic 60–75
[2017-06-02] MEDS: ONDANSETRON HCL 4 MG ORAL DISINTEGRATING TAB PO PRN ×2 (07:00→13:00)
[2017-06-02] MEDS ORDERED: RIVAROXABAN 20 MG TABLET PO SCH (09:00)
[2017-06-02] MEDS ORDERED: FUROSEMIDE 40 MG TAB PO SCH (09:00)
[2017-06-02] MEDS ORDERED: PREDNISONE 10 MG TAB PO SCH (09:00)
[2017-06-02] MEDS: FOLIC ACID 1 MG TAB PO SCH (09:00)
[2017-06-02] MEDS: POTASSIUM CHLORIDE 20 MEQ TAB CR PO SCH (09:00)
[2017-06-02] MEDS: RIVAROXABAN 15 MG TABLET PO SCH (09:29)
[2017-06-02] MEDS: FUROSEMIDE 40 MG TAB PO SCH (09:29)
[2017-06-02] MEDS: SERTRALINE HCL 50 MG TAB PO SCH (09:29)
[2017-06-02] MEDS: PANTOPRAZOLE SOD 40 MG TABEC PO SCH (09:29)
[2017-06-02] MEDS: PREDNISONE 5 MG TAB PO SCH (09:29)
[2017-06-02] MEDS: NYSTATIN 15 GM POWDER UD BTL TOP SCH ×2 (09:29→16:00)
[2017-06-02] MEDS ORDERED: ZINC OXIDE 30 GM TUBE TOP SCH (14:00)
[2017-06-02] MEDS ORDERED: MUPIROCIN 2% OINT 22 GM TUBE TOP SCH (14:00)
[2017-06-02] MEDS ORDERED: CALCIUM CHLORIDE IV ONE (18:00)
[2017-06-02] MEDS ORDERED: SODIUM CHLORIDE 0.9% IV ONE (18:00)
[2017-06-03] VITALS: BP 139/70
[2017-06-03 04:00] VITALS: BP 129/58
[2017-06-03 06:56] LABS: BASOPHILS # (AUTO) 0.1 (0.0-0.1); BASOPHILS % 0.4 % (0.0-1.0); EOSINOPHILS # (AUTO) 0.3 (0.0-0.4); EOSINOPHILS % 2.3 % (0.0-6.0); HEMATOCRIT 35.9 % (34.2-44.1); HEMOGLOBIN 11.5 g/dL (12.0-16.0); LYMPHOCYTES # (AUTO) 4.8 (1.0-3.2); LYMPHOCYTES % 40.3 % (18.0-39.1); MEAN CORPUSCULAR HEMOGLOBIN 31.9 pg (28-32); MEAN CORPUSCULAR VOLUME 99.4 fL (81-99); MONOCYTES # (AUTO) 1.3 (0.2-0.8); MONOCYTES % 10.7 % (4.4-11.3); NEUTROPHILS # (AUTO) 5.5 (2.1-6.9); NEUTROPHILS % 45.5 % (38.7-80.0); PLATELET COUNT 237 x10e3/uL (140-360); RED BLOOD COUNT 3.61 x10e6/uL (3.6-5.1); RED CELL DISTRIBUTION WIDTH 16.4 % (11.7-14.4)
[2017-06-03 07:26] LABS: ANION GAP 8.4 mmol/L (8-16); BLOOD UREA NITROGEN 8 mg/dL (7-26); BUN/CREATININE RATIO 9 (6-25); CALCIUM 8.5 mg/dL (8.4-10.2); CARBON DIOXIDE 25 mmol/L (22-29); CHLORIDE 110 mmol/L (98-107); CREATININE, SERUM 0.91 mg/dL (0.57-1.11); EST GLOMERULAR FILTRATION RATE > 60 ML/MIN (60-); GLUCOSE 78 mg/dL (74-118); POTASSIUM 3.4 mmol/L (3.5-5.1); SODIUM 140 mmol/L (136-145)
[2017-06-03 08:02] VITALS: BP 129/60
[2017-06-03 08:20] VITALS: BP 129/60
[2017-06-03] MEDS: FOLIC ACID 1 MG TAB PO SCH (08:22)
[2017-06-03] MEDS: POTASSIUM CHLORIDE 20 MEQ TAB CR PO SCH (08:23)
[2017-06-03] MEDS: PREDNISONE 5 MG TAB PO SCH (08:23)
[2017-06-03] MEDS: PANTOPRAZOLE SOD 40 MG TABEC PO SCH (08:23)
[2017-06-03] MEDS: RIVAROXABAN 15 MG TABLET PO SCH (08:23)
[2017-06-03] MEDS: NYSTATIN 15 GM POWDER UD BTL TOP SCH (08:23)
[2017-06-03] MEDS: SERTRALINE HCL 50 MG TAB PO SCH (08:23)
[2017-06-03] MEDS: FUROSEMIDE 40 MG TAB PO SCH (08:23)
[2017-06-03 12:00] VITALS: BP 130/60
== END 2017-06-03 14:30 | disposition home or self-care (01) | DRG 327 ==
LOC: ER 18:34 → MED/SURG3 23:05
PROC: 02HV33Z Insertion of Infusion Device into Superior Vena Cava, Percutaneous Approach (ICD-10-PCS; 2017-05-28)
PROC: 0DP68UZ Removal of Feeding Device from Stomach, Via Natural or Artificial Opening Endoscopic (ICD-10-PCS; 2017-06-01)
PROC: 0DJ08ZZ Inspection of Upper Intestinal Tract, Via Natural or Artificial Opening Endoscopic (ICD-10-PCS; principal; 2017-06-01 15:30)
DX: K50.912 Crohn's disease, unspecified, with intestinal obstruction (principal); I10 Essential (primary) hypertension; K20.9 Esophagitis, unspecified; K44.9 Diaphragmatic hernia without obstruction or gangrene; K29.70 Gastritis, unspecified, without bleeding; I25.10 Atherosclerotic heart disease of native coronary artery without angina pectoris; E87.6 Hypokalemia; Z86.718 Personal history of other venous thrombosis and embolism; Z79.01 Long term (current) use of anticoagulants; Z86.711 Personal history of pulmonary embolism; Z95.828 Presence of other vascular implants and grafts
CPT/HCPCS: 36415; 36569; 71045; 74176; 74177; 74470; 80048; 80053; 81001; 82150; 82550; 82553; 82948; 83690; 83735; 84484; 85025; 86301; 87040; 87086; 93005; 96361; 96367; 99285; J1170; J2001; J2405; J2543; J3480; J7030; J7512; Q9967

== ENCOUNTER → 2017-05-24 | Outpatient (CLI) | payer MEDICARE ==
[~2017-05-24] MED LIST changes: +CLINDAMYCIN HC300 MG PO; +LASIX40 MG PO
--- NOTE | 2017-05-24 18:08 | Diagnostic Imaging Report ---
PROCEDURE: Frontal and lateral views of the chest. COMPARISON: 05/17/2017 and 01/15/2017 INDICATIONS: PNEUMONIA FINDINGS: Lines/tubes: None. Lungs: The lungs are well inflated and clear. There is no evidence of pneumonia or pulmonary edema. Pleura: There is no pleural effusion or pneumothorax. Heart and mediastinum: The heart and the mediastinum are normal. Bones: No acute bony abnormality. Multilevel spondylosis of the thoracic spine IMPRESSION: 1. No acute cardiopulmonary disease. Dictated by: Federico Christian M.D. on 05/24/2017 at 18:09 Electronically approved by: Federico Christian M.D. on 05/24/2017 at 18:09
== END ==
LOC: RAD 17:27
DX: Z09 Encounter for follow-up examination after completed treatment for conditions other than malignant neoplasm (principal); J18.9 Pneumonia, unspecified organism
CPT/HCPCS: 71046

== ENCOUNTER 2017-10-24 19:01 | Inpatient (IN) | payer MEDICARE ==
[~2017-10-24] VITALS: Ht 154.9 cm; Wt 74.8 kg
[~2017-10-24 19:01] MED LIST changes: +CLINDAMYCIN HC300 MG PO; +LASIX40 MG PO
[2017-10-24 21:22] LABS: BASOPHILS # (AUTO) 0.1 (0.0-0.1); BASOPHILS % 0.5 % (0.0-1.0); EOSINOPHILS # (AUTO) 0.2 (0.0-0.4); EOSINOPHILS % 1.4 % (0.0-6.0); HEMATOCRIT 37.3 % (34.2-44.1); HEMOGLOBIN 11.8 g/dL (12.0-16.0); LYMPHOCYTES # (AUTO) 4.2 (1.0-3.2); LYMPHOCYTES % 35.1 % (18.0-39.1); MEAN CORPUSCULAR HEMOGLOBIN 32.5 pg (28-32); MEAN CORPUSCULAR HGB CONC 31.6 g/dL (31-35); MEAN CORPUSCULAR VOLUME 102.8 fL (81-99); MONOCYTES # (AUTO) 1.3 (0.2-0.8); MONOCYTES % 11.1 % (4.4-11.3); NEUTROPHILS # (AUTO) 6.1 (2.1-6.9); NEUTROPHILS % 51.4 % (38.7-80.0); PLATELET COUNT 271 x10e3/uL (140-360); RED BLOOD COUNT 3.63 x10e6/uL (3.6-5.1); RED CELL DISTRIBUTION WIDTH 15.4 % (11.7-14.4)
[2017-10-24 21:33] LABS: INR 1.35; PARTIAL THROMBOPLASTIN TIME 30.8 seconds (23.8-35.5); PROTHROMBIN TIME 15.7 seconds (11.9-14.5)
[2017-10-24 21:41] LABS: ALBUMIN 3.9 g/dL (3.5-5.0); ALBUMIN/GLOBULIN RATIO 0.9 (0.8-2.0); ANION GAP 13.7 mmol/L (8-16); CALCIUM 9.6 mg/dL (8.4-10.2); CREATININE, SERUM 1.11 mg/dL (0.57-1.11); MAGNESIUM 1.9 MG/DL (1.3-2.1); POTASSIUM 3.7 mmol/L (3.5-5.1)
[2017-10-24 21:47] LABS: CREATINE KINASE MB 1.2 ng/mL (0-5.0)
[2017-10-24 22:06] LABS: CLARITY,URINE SL CLOUDY (CLEAR); COLOR,URINE AMBER (YELLOW)
[2017-10-24 22:07] LABS: BILIRUBIN,URINE 1+ (NEGATIVE); KETONES,URINE NEGATIVE (NEGATIVE); LEUKOCYTE ESTERASE ,URINE TRACE (NEGATIVE); NITRITE,URINE NEGATIVE (NEGATIVE); PROTEIN,URINE DIPSTICK 1+ (NEGATIVE); URINE UROBILINOGEN 0.2 mg/dL (0.2 - 1)
[2017-10-24] MEDS ORDERED: DIATRIZOATE MEGL/DIATRIZOA SOD 30 ML BTL PO ONE (22:07)
[2017-10-24 22:18] LABS: AMORPHOUS SEDIMENT,URINE MODERATE (FEW); BACTERIA,URINE FEW /HPF; CALCIUM OXALATE CRYSTALS,UR MODERATE (FEW); EPITHELIAL CELLS,URINE MODERATE /LPF
[2017-10-24] MEDS ORDERED: SODIUM CHLORIDE 0.9% 250ML 250 ML ONE (22:45)
[2017-10-24] MEDS ORDERED: ONDANSETRON HCL INJ 2 MG/ML VIAL IV STA (23:26)
[2017-10-24] MEDS ORDERED: MORPHINE SULFATE 2 MG/ML SYR IV STA (23:28)
[2017-10-24] MEDS ORDERED: MORPHINE SULFATE INJ 4 MG/ML INJ ONE (23:40)
[2017-10-25] VITALS (7 sets, daily range): BP systolic 108–126; BP diastolic 54–67
[2017-10-25] MEDS ORDERED: ONDANSETRON HCL INJ 2 MG/ML VIAL IV STA (00:19)
[2017-10-25] MEDS ORDERED: PROMETHAZINE 12.5MG/ NACL 0.9% 12.5 MG/50 ML BAG IV ONE (01:00)
[2017-10-25] MEDS ORDERED: PROMETHAZINE 12.5MG/ NACL 0.9% 12.5 MG/50 ML BAG IV PRN (01:00)
--- NOTE | 2017-10-25 02:34 | Diagnostic Imaging Report ---
EXAM: CT ABDOMEN AND PELVIS with IV CONTRAST DATE: 10/24/2017 9:04 PM Time stamp on Exam: 0213 hours INDICATION: Stomach pain, cramping COMPARISON: CT of the abdomen and pelvis May 29, 2017 TECHNIQUE: The abdomen and pelvis were scanned using a multidetector helical scanner. Coronal and sagittal reformations were obtained. Dose modulation, iterative reconstruction, and/or weight based adjustment of the mA/kV was utilized to reduce the radiation dose to as low as reasonably achievable. Routine protocol performed. IV Contrast: 100 cc Isovue 370 Oral Contrast: Gastrografin FINDINGS: LOWER THORAX: No consolidations LIVER: No masses BILIARY: The gallbladder has been removed. No ductal dilation. SPLEEN: No masses PANCREAS: Stable appearance of the approximately 5 cm pancreatic tail complex cystic mass. ADRENALS: No nodules KIDNEYS: Symmetric perfusion. No enhancing masses. No hydronephrosis. Stable left kidney cortical dystrophic calcification inferior pole. GI TRACT: Loops of small bowel measure up to 4 cm with air-fluid levels. Transition point is at the distal ileum (series 2, image 46). The large bowel is unremarkable. VESSELS: Moderate adverse chronic changes of the abdominal aorta without aneurysm. Infrarenal inferior vena cava filter. PERITONEUM/RETROPERITONEUM: Trace free pelvic fluid. LYMPH NODES: No lymphadenopathy REPRODUCTIVE ORGANS: Unremarkable BLADDER: Unremarkable SOFT TISSUES: Stable approximately 2 cm soft tissue density posterior to the right coccyx, possibly related to prior injury. BONES: No suspicious bone lesions. IMPRESSION: Partial small bowel obstruction with transition point at the distal ileum at a site of narrowing. Small bowel loops measure up to 4 cm. Signed by: Dr. Jyoti Smith M.D. on 10/25/2017 2:30 AM
[2017-10-25] MEDS ORDERED: BENZOCAINE/TETRACAINE/BUTAMBEN AERO SPRAY 56 GM CAN TOP ONE (03:00)
[2017-10-25] MEDS ORDERED: MORPHINE SULFATE 2 MG/ML SYR IV PRN (03:00)
[2017-10-25] MEDS: METRONIDAZOLE 500MG/NS 100ML 100 ML IV SCH ×5 (03:00→17:52)
[2017-10-25] MEDS: SODIUM CHLORIDE 0.9% 1000ML 1,000 ML IV SCH ×2 (03:57→17:52)
[2017-10-25] MEDS: PIPER-TAZ 3.375 GM 50 ML IV SCH ×4 (03:57→21:54)
[2017-10-25] MEDS ORDERED: IOPAMIDOL 370 MG/ML 200 ML INFUS..BTL INJ ONE (04:50)
[2017-10-25] MEDS ORDERED: SODIUM CHLORIDE 0.9% 50ML 50 ML ONE ×2 (04:50→22:25)
[2017-10-25] MEDS ORDERED: ACETAMINOPHEN/CODEINE 300MG - 30MG TAB PO PRN (05:30)
[2017-10-25 07:32] LABS: CREATINE KINASE MB 1.1 ng/mL (0-5.0)
[2017-10-25 17:22] LABS: CREATINE KINASE MB 1.1 ng/mL (0-5.0)
[2017-10-26] VITALS (8 sets, daily range): BP systolic 122–142; BP diastolic 56–84
[2017-10-26] MEDS: METRONIDAZOLE 500MG/NS 100ML 100 ML IV SCH ×5 (00:16→23:47)
[2017-10-26] MEDS: PIPER-TAZ 3.375 GM 50 ML IV SCH ×4 (03:14→20:47)
[2017-10-26 05:57] LABS: BASOPHILS # (AUTO) 0.1 (0.0-0.1); BASOPHILS % 0.8 % (0.0-1.0); EOSINOPHILS # (AUTO) 0.3 (0.0-0.4); EOSINOPHILS % 3.3 % (0.0-6.0); HEMATOCRIT 32.5 % (34.2-44.1); HEMOGLOBIN 10.1 g/dL (12.0-16.0); LYMPHOCYTES # (AUTO) 2.4 (1.0-3.2); LYMPHOCYTES % 26.7 % (18.0-39.1); MEAN CORPUSCULAR HEMOGLOBIN 32.4 pg (28-32); MEAN CORPUSCULAR HGB CONC 31.1 g/dL (31-35); MEAN CORPUSCULAR VOLUME 104.2 fL (81-99); MONOCYTES % 11.5 % (4.4-11.3); NEUTROPHILS # (AUTO) 5.2 (2.1-6.9); NEUTROPHILS % 56.9 % (38.7-80.0); PLATELET COUNT 225 x10e3/uL (140-360); RED BLOOD COUNT 3.12 x10e6/uL (3.6-5.1); RED CELL DISTRIBUTION WIDTH 15.8 % (11.7-14.4)
[2017-10-26 06:31] LABS: ALBUMIN 3.2 g/dL (3.5-5.0); ALBUMIN/GLOBULIN RATIO 0.9 (0.8-2.0); ANION GAP 15.5 mmol/L (8-16); CALCIUM 8.6 mg/dL (8.4-10.2); CREATININE, SERUM 1.14 mg/dL (0.57-1.11); POTASSIUM 3.5 mmol/L (3.5-5.1)
--- NOTE | 2017-10-26 07:50 | Diagnostic Imaging Report ---
Exam: Abdominal film , upright chest film Clinical History: Small bowel obstruction Comparison: CT abdomen and pelvis with contrast 10/25/2017 DISCUSSION: Interval passage of contrast material into the large bowel relative to CT abdomen and pelvis from earlier 10/25/2017. Enteric tube tip terminates over the expected region of the gastric body. IVC filter projects over L2 and L3. No mass effect or organomegaly. Lungs are well expanded and without focal consolidation, pleural effusion, or pneumothorax. Cardiomediastinal contour and pulmonary vasculature are within normal limits. No acute osseous abnormality. IMPRESSION: Interval passage of enteric contrast material into the large bowel are used against complete small bowel obstruction. Partial small bowel obstruction remains a consideration as previously discussed. No pneumoperitoneum. No acute cardiopulmonary abnormality. Signed by: Dr. Martin Sheth M.D. on 10/26/2017 7:46 AM
[2017-10-26] MEDS: SODIUM CHLORIDE 0.9% 1000ML 1,000 ML IV SCH ×2 (09:34→22:50)
[2017-10-26] MEDS: ONDANSETRON HCL INJ 2 MG/ML VIAL IV PRN (19:08)
--- NOTE | 2017-10-26 20:06 | Consultation ---
DATE OF CONSULTATION: October 25, 2017 CARDIOLOGY CONSULTATION Please note that this consult was seen on October 25, 2017, and was unfortunately dictated to the wrong hospital. REQUESTING PHYSICIAN: Dr. An Perales. REASON FOR CONSULTATION: Evaluate cardiac status. HISTORY OF PRESENT ILLNESS: Ms. Medellin is a 67-year-old lady who is very well known to us with prior history of anterior left main STEMI, cardiogenic shock, who underwent salvage PCI back in October of 2015, and had thrombotic 100% occlusion of the left main coronary artery and is status post implantation of a bare metal stent with prolonged hospital course with a recovery from cardiogenic shock, hypotension, et cetera, Y[place]. She also has a history of hypertension, hypercholesterolemia, a history of Crohn's disease with multiple flares of bowel obstructions, history of repeated colitis as well as a history of pancreatic cystic mass noted on several serial imaging studies under observation, history of severe debility, weakness with vocal cord issues and had previous PEG tube placement in the past and surprisingly has made a generalized good recovery. She also has a history of pulmonary embolisms with prior DVT in April of 2016 and had IVC filter placement at that time that was attributed to her overall debility. She presents to this institution with several days of abdominal pain, generalized discomfort with recurrent nonbilious nonbloody vomiting and severe generalized abdominal pain, bloating sensation and overall malaise. She underwent CT imaging study which revealed a partial small-bowel obstruction with the transition point being the distal ileum with bowels of loops measuring up to 4 cm in diameter. She was treated conservatively with NG tube placement to low intermittent suction and her pain has subsequently resolved at the present time. She is overall feeling more or less pretty good. She historically has been on systemic anticoagulant therapy with Xarelto for a very long period of time and questions the long-term safety of it in light of a prior history of GI bleeding, acute blood loss anemia and so forth, especially in light of having an IVC filter in place. In terms of her Crohn's disease, she was transitioned off of prednisone to sulfasalazine about a month ago by her direct care worker as a steroid-sparing disease-modifying agent. However, I believe that this may be a potential cause of the flare, and GI has been consulted to comment on this. Otherwise, from a cardiovascular standpoint she has exertional class III dyspnea, has overall known EF in the 40% range and has just very minimal edema on exam. PAST MEDICAL HISTORY 1. Coronary artery disease with prior history of left main ST-elevation myocardial infarction, cardiogenic shock with salvage PCI to the left main in October of 2015 with a miraculous recovery. 2. Systolic congestive heart failure with [place] [employer] II symptoms with EF baseline around 40%. 3. Hypertension, essential. 4. Hypercholesterolemia. 5. Crohn's disease with multiple recurrent flares and history of recurrent colitis. 6. 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 7. Rheumatoid arthritis. 8. History of pulmonary embolism status post IVC filter placement in 2017 and has been on Xarelto therapy since. 9. Prior history of advanced debility with PEG tube placement in the past with removal and extensive rehab over the span of about 2 years. PAST SURGICAL HISTORY 1. History of surgery. 2. History of appendectomy. 3. History of multiple PEG tube placements and re-replacements. 4. Coronary artery disease with prior history of left main PCI in October of 2015 at [facility]. 5. IVC filter placement in April of 2016. FAMILY HISTORY: Father had chronic bronchitis and congestive heart failure, otherwise no family history of coronary artery disease. SOCIAL HISTORY: She is . She lives with her , has an excellent support system in her 2 daughters. Denies any alcohol or illicit drug use. ALLERGIES: INCLUDE PLASTIC TAPE AND HEPARIN. HOME MEDICATIONS: Include 1. Protonix 40 mg daily. 2. Xarelto 15 mg daily. 3. Sertraline 25 mg daily. 4. Zyrtec 10 mg daily. 5. Folate 1 mg daily. 6. Methotrexate 5 mg weekly. 7. Plaquenil 200 mg daily. 8. Sulfasalazine 1000 mg b.i.d. 9. Tizanidine 2 mg nightly. 10. Caltrate with vitamin D tablet b.i.d. 11. Vitamin D tablet 2000 units b.i.d. 12. Lorazepam 0.5 mg q.6 h. p.r.n. 13. Toprol-XL 25 mg daily p.r.n. for systolic blood pressure greater than 140. 14. Tramadol 50 mg q.6 h. p.r.n. 15. Zofran 4 mg q.6 h. p.r.n. REVIEW OF SYSTEMS GENERAL: Denies any fevers, chills or any weight changes. HEENT: No headaches, visual complaints, sore throat, stuffy nose. RESPIRATORY: Denies any pleuritic chest pain. Has chronic hoarseness in her voice and has exertional dyspnea class III. CARDIOVASCULAR: Denies any chest pain, pressure, tightness. No orthopnea, PND. Has some slight trace edema but no syncope or near syncope. GI: Positive for abdominal pain and recurrent nausea, vomiting and GI issue as above. Positive for a history of Crohn's disease and recurrent colitis. : Denies any pyuria, changes in urinary frequency or dysuria. MUSCULOSKELETAL: Has chronic low back pain and occasional leg pain from time to time and trivial leg swelling. ENDOCRINE: Denies any heat or cold intolerance. NEUROLOGIC: Denies any focal weakness, tingling, seizures, headache, history of TIA or stroke. REMAINDER: Negative otherwise mentioned. PHYSICAL EXAMINATION VITAL SIGNS: Height of 61 inches, weight of 168 pounds. BMI is 31.7. Temperature of 97.0, pulse of 65, respiratory rate of 18, blood pressure 119/59, O2 sat 100% on 2 liters nasal cannula. IN GENERAL: This is a chronically ill-appearing lady who is currently in reasonable shape at the present time with moderate frailty at baseline, is in no apparent distress. HEENT: Pupils are equally round and reactive to light. Extraocular movements are intact. Oropharynx is clear with poor dentition. There is an NG tube through her nostril going to her stomach on low intermittent suction. CARDIOVASCULAR: Regular in rate and rhythm. Normal S1 and S2. A 1/6 to 2/6 systolic murmur at the left lower sternal border. LUNGS: Largely clear to auscultation bilaterally. ABDOMEN: Soft, nontender, nondistended. Normoactive bowel sounds without hepatosplenomegaly. BACK: No costovertebral angle tenderness. EXTREMITIES: Warm with 1 to 2+ bilateral femoral pulses, 1+ pedal pulses, and there is trace edema. NEUROLOGIC: Cranial nerves 2-12 are intact, strength is 5/5, and grossly nonfocal outside of some hoarseness upon talking. REMAINDER: Negative otherwise mentioned. LAB DATA: White count 11.8, hemoglobin 11.8, hematocrit 37.3, platelets of 271. Sodium 139, potassium 3.7, chloride 104, bicarb 25, BUN 13, creatinine 1.11, glucose of 101, calcium of 9.6, magnesium 1.9. AST 22, ALT 18, alk phos 153, total protein 8.2, albumin of 3.9. Troponin went from 0.004 to 0.003. INR is 1.35. UA shows 6-[address] Her pelvis CT with contrast reveals partial small-bowel obstruction with a transition point in the distal ileum at the site of narrowing with small-bowel loops measuring up to 4 cm and an incidental stable-appearing 5 cm pancreatic tail complex cystic mass. DIAGNOSES 1. Partial small-bowel obstruction, currently improved on conservative therapy with perhaps a Crohn's disease flare in the terminal ileum. 2. Coronary artery disease with prior history of left main percutaneous coronary intervention. 3. Chronic compensated systolic heart failure. 4. History of deep vein thrombosis and pulmonary embolism with inferior vena cava filter placement and has been on chronic anticoagulant therapy since April of 2016. 5. Hypercholesterolemia. 6. Debility, weakness. PLAN/RECOMMENDATIONS 1. From a cardiovascular standpoint will monitor while she is here and luckily in terms of her GI symptom complex appears to be improving with conservative GI therapy with NG tube to low intermittent suction. Largely will defer GI management to GI and surgical services. 2. We question the efficacy of sulfasalazine with the transition of prednisone to this therapy about a month ago, which may have prompted this current most recent flare. Again will defer that to other services. 3. In terms of coronary standpoint patient is not endorsing any angina symptoms. Will just check her left ventricular function with an echo and clinically monitor her volume status as it appears compensated at the present time. 4. Will go ahead and check lower extremity venous duplex to evaluate if there is any active DVT and try to make a long-term decision on Xarelto therapy, especially in light of her having IVC filter placed. 5. We do note that patient does have significant GI risk with anticoagulant therapy as she has had previous acute blood loss anemia from GI source and has had complicated multiple GI issues in the past. Family is questioning the safety of this therapy. 6. In term of her pancreatic cystic mass this has been known by the other physicians and defer to Surgery for this but this has been seemingly stable and the patient and her family are aware of this mass. Thank you for this referral. Job#: [id number] JASMYNE RAMACHANDRAN
[2017-10-27] VITALS (7 sets, daily range): BP systolic 129–142; BP diastolic 59–66
[2017-10-27] MEDS ORDERED: SODIUM CHLORIDE 0.9% 50ML 50 ML ONE ×2 (02:57→20:24)
[2017-10-27] MEDS: PIPER-TAZ 3.375 GM 50 ML IV SCH ×4 (03:08→21:50)
[2017-10-27] MEDS: METRONIDAZOLE 500MG/NS 100ML 100 ML IV SCH ×3 (06:04→18:00)
[2017-10-27] MEDS: ONDANSETRON HCL INJ 2 MG/ML VIAL IV PRN (21:45)
[2017-10-28] VITALS: BP 134/63
[2017-10-28] MEDS: METRONIDAZOLE 500MG/NS 100ML 100 ML IV SCH ×5 (00:29→23:52)
[2017-10-28] MEDS ORDERED: SODIUM CHLORIDE 0.9% 50ML 50 ML ONE (03:02)
[2017-10-28] MEDS: ONDANSETRON HCL INJ 2 MG/ML VIAL IV PRN ×3 (03:08→12:45)
[2017-10-28] MEDS: PIPER-TAZ 3.375 GM 50 ML IV SCH ×4 (03:12→20:51)
[2017-10-28 04:00] VITALS: BP 129/64
[2017-10-28 08:28] VITALS: BP 142/68
[2017-10-28 14:06] VITALS: BP 141/66
[2017-10-28 16:37] VITALS: BP 133/72
[2017-10-28 20:00] VITALS: BP 142/67
[2017-10-29] VITALS (8 sets, daily range): BP systolic 131–145; BP diastolic 61–70
[2017-10-29] MEDS: PIPER-TAZ 3.375 GM 50 ML IV SCH ×4 (02:54→21:20)
[2017-10-29] MEDS: METRONIDAZOLE 500MG/NS 100ML 100 ML IV SCH ×3 (06:00→18:36)
[2017-10-29] MEDS ORDERED: ENOXAPARIN 30 MG/0.3 ML SYR SC SCH (17:00)
[2017-10-30] VITALS: BP 132/64
[2017-10-30] MEDS: METRONIDAZOLE 500MG/NS 100ML 100 ML IV SCH ×3 (00:19→12:37)
[2017-10-30] MEDS: PIPER-TAZ 3.375 GM 50 ML IV SCH ×2 (03:04→09:22)
[2017-10-30 04:00] VITALS: BP 115/60
[2017-10-30 07:20] VITALS: BP 129/75
[2017-10-30 07:27] VITALS: BP 129/75
[2017-10-30 12:13] VITALS: BP 152/77
[2017-10-30] MEDS ORDERED: FLAGYL250 MG PO (13:59)
[2017-10-30] MEDS ORDERED: AUGMENTIN 875-1 EACH PO (14:00)
== END 2017-10-30 15:02 | disposition home or self-care (01) | DRG 389 ==
LOC: ER 19:01 → ERHOLD 10-25 03:03 → MED/SURG3 10-25 04:57
DX: K56.600 Partial intestinal obstruction, unspecified as to cause (principal); I50.22 Chronic systolic (congestive) heart failure; K50.90 Crohn's disease, unspecified, without complications; K86.2 Cyst of pancreas; I25.10 Atherosclerotic heart disease of native coronary artery without angina pectoris; Z95.5 Presence of coronary angioplasty implant and graft; I11.0 Hypertensive heart disease with heart failure; Z86.718 Personal history of other venous thrombosis and embolism; Z79.01 Long term (current) use of anticoagulants; Z86.711 Personal history of pulmonary embolism; E78.00 Pure hypercholesterolemia, unspecified; R53.81 Other malaise; I25.2 Old myocardial infarction; M06.9 Rheumatoid arthritis, unspecified
CPT/HCPCS: 36415; 74022; 74177; 80053; 81001; 82150; 82550; 82553; 83690; 83735; 84484; 85025; 85610; 85730; 93005; 93306; 93970; 96367; 96374; 99284; J1650; J2270; J2405; J2543; J2550; J7030; J7050; Q9967

== ENCOUNTER 2017-11-29 17:19 | Inpatient (IN) | payer MEDICARE ==
[~2017-11-29] VITALS: Ht 154.9 cm; Wt 77.1 kg
[2017-11-29 00:40] VITALS: BP 138/60
[~2017-11-29 17:19] MED LIST changes: +AUGMENTIN 875-1 EACH PO; +FLAGYL250 MG PO
[2017-11-29] MEDS ORDERED: PANTOPRAZOLE 40 MG 10ML VIAL IV STA (17:51)
[2017-11-29] MEDS ORDERED: SODIUM CHLORIDE 0.9% 1000ML 1,000 ML IV STA ×2 (17:51→17:56)
[2017-11-29] MEDS ORDERED: ONDANSETRON HCL INJ 2 MG/ML VIAL IV STA (17:56)
[2017-11-29] MEDS ORDERED: ONDANSETRON HCL INJ 2 MG/ML VIAL IV ONE (18:00)
[2017-11-29] MEDS ORDERED: DICYCLOMINE HCL 20 MG/2 ML VIAL IM ONE ×2 (18:00→21:12)
[2017-11-29] MEDS ORDERED: FAMOTIDINE 20 MG/2 ML VIAL IV ONE ×2 (18:00→21:13)
[2017-11-29 18:01] LABS: BASOPHILS # (AUTO) 0.1 (0.0-0.1); BASOPHILS % 0.5 % (0.0-1.0); EOSINOPHILS # (AUTO) 0.1 (0.0-0.4); EOSINOPHILS % 0.9 % (0.0-6.0); HEMATOCRIT 41.7 % (34.2-44.1); HEMOGLOBIN 13.3 g/dL (12.0-16.0); LYMPHOCYTES # (AUTO) 3.5 (1.0-3.2); LYMPHOCYTES % 32.2 % (18.0-39.1); MEAN CORPUSCULAR HEMOGLOBIN 31.7 pg (28-32); MEAN CORPUSCULAR HGB CONC 31.9 g/dL (31-35); MEAN CORPUSCULAR VOLUME 99.5 fL (81-99); MONOCYTES # (AUTO) 0.9 (0.2-0.8); MONOCYTES % 8.4 % (4.4-11.3); NEUTROPHILS # (AUTO) 6.3 (2.1-6.9); NEUTROPHILS % 57.6 % (38.7-80.0); PLATELET COUNT 284 x10e3/uL (140-360); RED BLOOD COUNT 4.19 x10e6/uL (3.6-5.1); RED CELL DISTRIBUTION WIDTH 13.9 % (11.7-14.4)
[2017-11-29] MEDS ORDERED: DIATRIZOATE MEGL/DIATRIZOA SOD 30 ML BTL PO ONE (18:03)
[2017-11-29 18:06] LABS: BILIRUBIN,URINE 1+ (NEGATIVE); CLARITY,URINE SL CLOUDY (CLEAR); COLOR,URINE YELLOW (YELLOW); KETONES,URINE NEGATIVE (NEGATIVE); LEUKOCYTE ESTERASE ,URINE NEGATIVE (NEGATIVE); NITRITE,URINE NEGATIVE (NEGATIVE); PROTEIN,URINE DIPSTICK 2+ (NEGATIVE); URINE UROBILINOGEN 0.2 mg/dL (0.2 - 1)
[2017-11-29 18:15] LABS: AMORPHOUS SEDIMENT,URINE MODERATE (FEW); BACTERIA,URINE MANY /HPF; CALCIUM OXALATE CRYSTALS,UR MANY (FEW); EPITHELIAL CELLS,URINE FEW /LPF
[2017-11-29 18:24] LABS: ALBUMIN 4.1 g/dL (3.5-5.0); ALBUMIN/GLOBULIN RATIO 0.9 (0.8-2.0); ANION GAP 14.2 mmol/L (8-16); CALCIUM 9.9 mg/dL (8.4-10.2); CREATININE, SERUM 1.16 mg/dL (0.57-1.11); POTASSIUM 3.2 mmol/L (3.5-5.1)
[2017-11-29 18:26] LABS: AMYLASE 115 U/L (25-125); LIPASE 15 U/L (8-78)
[2017-11-29] MEDS ORDERED: ONDANSETRON HCL INJ 2 MG/ML VIAL ONE (21:12)
[2017-11-29] MEDS ORDERED: PANTOPRAZOLE 40 MG 10ML VIAL ONE (21:12)
[2017-11-29] MEDS ORDERED: SODIUM CHLORIDE 0.9% 1000ML 1,000 ML ONE (21:13)
[2017-11-29] MEDS ORDERED: SODIUM CHLORIDE 0.9% 50ML 0 ML ONE (22:47)
[2017-11-29] MEDS ORDERED: IOPAMIDOL 370 MG/ML 200 ML INFUS..BTL INJ ONE (22:48)
--- NOTE | 2017-11-29 22:59 | Diagnostic Imaging Report ---
EXAM: CT ABDOMEN/PELVIS W DATE: 11/29/2017 5:51 PM INDICATION: Abdominal pain, ^look for appy, diverticulitis,sbo, pancreatitis, hernia, rup ^Y COMPARISON: 10/25/2017 TECHNIQUE: The abdomen and pelvis were scanned using a multidetector helical scanner. Coronal and sagittal reformations were obtained. CT low dose techniques were utilized, as applicable. IV Contrast: 100 ml Isovue 300/370 FINDINGS: LOWER THORAX: Nonspecific groundglass opacity and several 1 to 3 mm left lower lobe nodule, presumably postinfectious or inflammatory. LIVER/BILIARY: No masses. No ductal dilatation. GALLBLADDER: Unremarkable SPLEEN: Unremarkable PANCREAS: Stable complex cystic and solid appearing mass of the pancreatic tail measuring about 4 cm maximal dimension. ADRENALS: No nodules KIDNEYS: Unchanged left renal scarring with parenchymal calcification. No suspicious renal masses. No hydronephrosis. GI TRACT: There is again small bowel dilatation with transition point upstream from an approximately 8 cm segment of stricturing at the terminal ileum. Associated mesenteric edema and mild fluid. VESSELS: Diffuse vascular calcifications. Unchanged IVC filter. PERITONEUM/RETROPERITONEUM: No free air LYMPH NODES: Stable reactive ileocolic nodes. REPRODUCTIVE ORGANS/BLADDER: Unremarkable SOFT TISSUES: Stable fat necrosis posterior to the coccyx and right ilium. BONES: Multilevel degenerative changes. IMPRESSION: Recurrent small bowel obstruction with transition point at the distal ileum at a site of narrowing/stricturing related to reported Crohn's disease. Signed by: Dr Giselle Carr MD on 11/29/2017 10:55 PM
[2017-11-29] MEDS ORDERED: METHYLPREDNISOLONE SOD SUCC 125 MG/2ML VIAL IV STA (23:20)
[2017-11-29] MEDS ORDERED: PROMETHAZINE 12.5MG/ NACL 0.9% 12.5 MG/50 ML BAG IV PRN (23:30)
[2017-11-29] MEDS ORDERED: MORPHINE SULFATE 2 MG/ML SYR IV PRN (23:30)
[2017-11-29] MEDS ORDERED: ONDANSETRON HCL INJ 2 MG/ML VIAL IV PRN (23:30)
[2017-11-29] MEDS ORDERED: POTASSIUM CHLORIDE 10MEQ/100ML 300 ML IV ONE (23:30)
[2017-11-29] MEDS ORDERED: SODIUM CHLORIDE 0.9% 1000ML 1,000 ML IV ONE (23:30)
[2017-11-29] MEDS ORDERED: BENZOCAINE/TETRACAINE/BUTAMBEN AERO SPRAY 56 GM CAN TOP ONE (23:30)
[2017-11-30] VITALS (10 sets, daily range): BP systolic 129–158; BP diastolic 60–76
[2017-11-30] MEDS ORDERED: LIDOCAINE VISC 2% SOLN 15 ML UDC ONE (00:03)
[2017-11-30] MEDS: METRONIDAZOLE 500MG/NS 100ML 100 ML IV SCH ×5 (00:25→23:51)
[2017-11-30] MEDS: LEVOFLOXACIN 500MG/D5W 100ML 100 ML IV SCH ×2 (02:49→08:15)
[2017-11-30 07:18] LABS: BASOPHILS % 0.3 % (0.0-1.0); HEMATOCRIT 37.7 % (34.2-44.1); HEMOGLOBIN 12.1 g/dL (12.0-16.0); LYMPHOCYTES # (AUTO) 1.4 (1.0-3.2); LYMPHOCYTES % 19.1 % (18.0-39.1); MEAN CORPUSCULAR HEMOGLOBIN 31.7 pg (28-32); MEAN CORPUSCULAR HGB CONC 32.1 g/dL (31-35); MEAN CORPUSCULAR VOLUME 98.7 fL (81-99); MONOCYTES # (AUTO) 0.1 (0.2-0.8); MONOCYTES % 1.1 % (4.4-11.3); NEUTROPHILS # (AUTO) 5.7 (2.1-6.9); NEUTROPHILS % 78.8 % (38.7-80.0); PLATELET COUNT 246 x10e3/uL (140-360); RED BLOOD COUNT 3.82 x10e6/uL (3.6-5.1); RED CELL DISTRIBUTION WIDTH 13.9 % (11.7-14.4)
[2017-11-30 07:47] LABS: ALBUMIN 3.4 g/dL (3.5-5.0); ALBUMIN/GLOBULIN RATIO 0.9 (0.8-2.0); CALCIUM 9.4 mg/dL (8.4-10.2); CREATININE, SERUM 0.98 mg/dL (0.57-1.11)
[2017-11-30] MEDS: PANTOPRAZOLE 40 MG 10ML VIAL IV SCH (08:15)
[2017-11-30] MEDS: METHYLPREDNISOLONE SOD SUCC 40 MG/ML VIAL IV SCH ×3 (08:15→22:31)
[2017-11-30 08:26] LABS: CREATINE KINASE MB 1.7 ng/mL (0-5.0)
[2017-11-30 13:44] LABS: LYMPHOCYTES % (MANUAL) 22 % (19-48); MONOCYTES % (MANUAL) 2 % (3.4-9.0); NEUTROPHILS % (MANUAL) 74 % (40-74)
[2017-11-30 13:45] LABS: ANISOCYTOSIS SLIGHT; PLATELET ESTIMATE ADEQUATE; PLATELET MORPHOLOGY COMMENT NORMAL; RBC MORPHOLOGY COMMENT NORMAL
[2017-11-30] MEDS ORDERED: METRONIDAZOLE 500MG/NS 100ML 100 ML IV SCH ×2 (15:00→18:26)
[2017-11-30 15:48] LABS: CREATINE KINASE MB 1.5 ng/mL (0-5.0)
[2017-11-30 15:57] LABS: CREATINE KINASE MB 1.7 ng/mL (0-5.0)
[2017-11-30] MEDS ORDERED: SODIUM CHLORIDE 0.9% 250ML 250 ML ONE (18:30)
[2017-12-01] VITALS (8 sets, daily range): BP systolic 129–151; BP diastolic 60–66
[2017-12-01] MEDS: LACTATED RINGER'S 1,000 ML IV SCH ×4 (01:53→21:56)
[2017-12-01] MEDS: METRONIDAZOLE 500MG/NS 100ML 100 ML IV SCH ×3 (05:56→17:14)
[2017-12-01] MEDS: METHYLPREDNISOLONE SOD SUCC 40 MG/ML VIAL IV SCH ×3 (05:56→21:48)
--- NOTE | 2017-12-01 07:02 | Diagnostic Imaging Report ---
ABDOMEN 2 VIEW Clinical history: Small bowel obstruction Technique: AP views abdomen Comparison: CT 11/29/2017 Findings: Abdomen: NG-tube terminates within the stomach. Several prominent loops of small bowel but otherwise no dilated loops of small or large bowel. No free air. Other: IVC filter noted. 9 mm calcification projects over the left kidney. Impression: Improved small bowel obstruction. Signed by: Dr Giselle Carr MD on 12/01/2017 6:59 AM
[2017-12-01] MEDS: PANTOPRAZOLE 40 MG 10ML VIAL IV SCH (08:40)
[2017-12-01] MEDS: LEVOFLOXACIN 500MG/D5W 100ML 100 ML IV SCH (08:40)
[2017-12-01] MEDS ORDERED: SODIUM CHLORIDE 0.9% IRRIG 3,000 ML BAG IR SCH (14:00)
[2017-12-02] VITALS (7 sets, daily range): BP systolic 119–145; BP diastolic 56–67
[2017-12-02] MEDS: METRONIDAZOLE 500MG/NS 100ML 100 ML IV SCH ×5 (00:25→23:31)
[2017-12-02] MEDS ORDERED: TIZANIDINE HCL4 MG PO (00:48)
[2017-12-02] MEDS ORDERED: HYDROXYCHLOROQ200 MG PO (00:48)
[2017-12-02] MEDS ORDERED: ASPIR 8181 MG PO (00:48)
[2017-12-02] MEDS ORDERED: SULFASALAZINE500 MG PO (00:48)
[2017-12-02] MEDS ORDERED: MEGESTROL ACETA40 MG PO (00:48)
[2017-12-02] MEDS: METHYLPREDNISOLONE SOD SUCC 40 MG/ML VIAL IV SCH ×3 (05:44→22:04)
[2017-12-02 06:22] LABS: BASOPHILS % 0.3 % (0.0-1.0); HEMATOCRIT 34.9 % (34.2-44.1); HEMOGLOBIN 11.4 g/dL (12.0-16.0); LYMPHOCYTES % 34.4 % (18.0-39.1); MEAN CORPUSCULAR HEMOGLOBIN 31.7 pg (28-32); MEAN CORPUSCULAR HGB CONC 32.7 g/dL (31-35); MEAN CORPUSCULAR VOLUME 96.9 fL (81-99); MONOCYTES # (AUTO) 0.5 (0.2-0.8); MONOCYTES % 5.5 % (4.4-11.3); NEUTROPHILS # (AUTO) 5.2 (2.1-6.9); NEUTROPHILS % 59.1 % (38.7-80.0); PLATELET COUNT 221 x10e3/uL (140-360); RED CELL DISTRIBUTION WIDTH 13.9 % (11.7-14.4)
[2017-12-02 06:44] LABS: ANION GAP 12.8 mmol/L (8-16); BLOOD UREA NITROGEN 19 mg/dL (7-26); BUN/CREATININE RATIO 21 (6-25); CALCIUM 8.7 mg/dL (8.4-10.2); CARBON DIOXIDE 21 mmol/L (22-29); CHLORIDE 108 mmol/L (98-107); CREATININE, SERUM 0.91 mg/dL (0.57-1.11); EST GLOMERULAR FILTRATION RATE > 60 ML/MIN (60-); GLUCOSE 93 mg/dL (74-118); POTASSIUM 3.8 mmol/L (3.5-5.1); SODIUM 138 mmol/L (136-145)
[2017-12-02] MEDS: LACTATED RINGER'S 1,000 ML IV SCH ×3 (08:30→22:04)
[2017-12-02] MEDS: LEVOFLOXACIN 500MG/D5W 100ML 100 ML IV SCH (08:50)
[2017-12-02] MEDS: PANTOPRAZOLE 40 MG 10ML VIAL IV SCH (08:50)
[2017-12-03] VITALS: BP 130/61
[2017-12-03 00:09] VITALS: BP 128/60
[2017-12-03 04:00] VITALS: BP 135/63
[2017-12-03] MEDS: METHYLPREDNISOLONE SOD SUCC 40 MG/ML VIAL IV SCH ×2 (05:40→14:34)
[2017-12-03] MEDS: METRONIDAZOLE 500MG/NS 100ML 100 ML IV SCH ×3 (05:40→17:56)
[2017-12-03 08:21] VITALS: BP 135/63
[2017-12-03] MEDS: PANTOPRAZOLE 40 MG 10ML VIAL IV SCH (08:30)
[2017-12-03] MEDS: LEVOFLOXACIN 500MG/D5W 100ML 100 ML IV SCH (08:30)
[2017-12-03] MEDS: LACTATED RINGER'S 1,000 ML IV SCH (08:30)
--- NOTE | 2017-12-03 15:13 | Progress Note ---
DATE: INTERNAL MEDICINE PROGRESS NOTE SUBJECTIVE: Patient is doing much better now, tolerating the p.o. feedings. She is not vomiting anymore. The last abdominal x-ray showed evidence of significant improvement in the small-bowel obstruction. PHYSICAL EXAM VITAL SIGNS: Blood pressure 135/63, temperature 96.7, heart rate 53 per minute, respiratory rate 19 per minute, oxygen saturation 100%. HEART: Regular rhythm. Normal S1, S2 sounds. LUNGS: Clear bilaterally. ABDOMEN: Soft. No tension, retention, or visceromegaly. EXTREMITIES: Show no evidence of cyanosis, edema, or trauma. LABORATORY DATA: The BMP showed sodium 138, potassium 3.8, chloride 108, CO2 of 21, BUN 18, creatinine 0.91, and glucose 92. CBC; white blood count 8.83, hemoglobin 11.4, hematocrit 34.9, platelet count 231,000. AST 18, ALT 12, total bilirubin 0.4, alkaline phosphatase 104. FINAL IMPRESSION 1. Small-bowel obstruction, which is completely resolved. 2. Coronary artery disease, status post stent. 3. History of congestive heart failure. 4. History of deep vein thrombosis and pulmonary embolism. 5. Status post inferior vena cava filter placement. PLAN OF TREATMENT: Continue with Levaquin and metronidazole. We are going to discontinue Ringer's lactate. Continue Solu-Medrol. Continue Protonix 40 mg daily. Patient is going to go home today if her KUB shows significant improvement on the small-bowel obstruction. Follow up with Dr. López Perales as an outpatient. Discharged home if okay with gastroenterology, Dr. López Perales. Job#: [id number] EDWIN
--- NOTE | 2017-12-03 16:31 | Diagnostic Imaging Report ---
Exam: Abdominal film Clinical History: Crohn's disease, small bowel obstruction Comparison: KUB 12/01/2017 DISCUSSION: Frontal view of the abdomen shows a nonobstructive bowel gas pattern with mild amount of retained stool.There are no dilated, air-filled loops of bowel. Stable 9 mm calcific density projecting over the left renal shadow, likely a nonobstructing calculus.No acute bone abnormality. IVC filter in place. Vascular calcifications. IMPRESSION: 1. Nonobstructive bowel gas pattern. No air-filled, dilated loops of bowel. The staff physician below has personally reviewed this exam on the date of dictation. Signed by: Dr. Handy Billingsley M.D. on 12/03/2017 4:28 PM
[2017-12-03 17:15] VITALS: BP 150/65
--- NOTE | 2018-01-18 01:26 | Discharge Summary ---
CHIEF COMPLAINT: Crohn's disease, small bowel obstruction. FINAL DIAGNOSES 1. Small bowel obstruction, resolved. 2. Rheumatoid arthritis. 3. Crohn's disease. 4. Coronary artery disease. DISPOSITION: Home. A 67-year-old female with known history of rheumatoid arthritis, Crohn's disease, coronary artery disease, cardiac arrhythmias, was brought to the ER with a 1-day history of generalized abdominal cramps and pain, associated nausea and vomiting, but no diarrhea. No fever or chills. She also denies chest pains or shortness of breath. With review in the ER, chest was revealing inspiratory rhonchi. Abdomen was showing evidence of being distended, moderate diffuse tenderness. X-rays were showing evidence of small-bowel obstruction. Further review and care was given. Admission was made for care and evaluation regarding issues of abdominal pain, nausea, and vomiting, findings of small bowel obstruction, history of rheumatoid arthritis, history of Crohn's disease, coronary artery disease. Will begin IV fluids. Continue maintaining NG tube for low-intermittent wall suction. Began IV steroids. Request GI follow. As she was admitted regarding her GI history as well as her GI findings and complaints, she was being reviewed by Dr. López Perales and with his evaluation of the data and patient, impression was made of small bowel obstruction with transition point at the distal ileum. Agree with the current management. Patient has refused biologics and immunologics. Will be repeating KUB on the patient. Patient was on the med surg floor, n.p.o. status. Has onboard NG tube. She began passing gas, began having bowel moments. She was receiving levofloxacin, as well as Flagyl. Receiving methylprednisolone IV 40 mg q.8. Daily medications were continuing as well. Laboratory studies were showing stable electrolytes. Kidney functions stable. Glucose 125. CBC stable. Continuing her care, NG tube was being discontinued. Followup KUBs were showing resolving small-bowel obstruction with diet was brought up to clear liquids, which she was tolerating well. Diet was being further advanced and she was tolerating a GI soft diet and she was cleared for discharge and she was released home on 12/03/2017 in good condition. With discharge, patient will continue on a GI soft diet as tolerated. No equipment or supplies were necessary. Drains of Driver as needed. Activity level as directed by me, as well as by Dr. López Perales. Will be following back up with Dr. López Perales in his office in 1 to 2 weeks for further GI follow. MEDICATIONS 1. She was given prescription for a Medrol Dosepak. 2. She will continue on aspirin 81 mg daily. 3. Calcium carbonate. 4. Vitamin D3 one tablet twice a day. 5. Zyrtec 10 mg 1 tablet at bedtime. 6. Vitamin D3, a 2000-unit capsule 1 tablet twice a day. 7. Folic acid 1 mg daily. 8. Furosemide 20 mg daily. 9. Hydroxychloroquine sulfate 200 mg 1 tablet at bedtime. 10. Lorazepam 0.25 mg every 6 as needed for anxiety. 11. Megestrol acetate 40 mg 3 tablets daily. 12. Methotrexate 2.5 mg 5 tablets by mouth once a week. 13. Metoprolol succinate 25 mg daily. 14. Flagyl 250 three times a day. 15. Zofran 4 mg every 6 hours as needed for nausea. 16. Protonix 40 mg daily. 17. Potassium chloride 20 mEq 1 tablet daily. 18. Prednisone 5 mg daily. 19. Xarelto 20 mg daily. 20. Sertraline 25 mg at bedtime. 21. Sulfasalazine 1000 mg twice a day. 22. Tizanidine 2 mg at bedtime. 23. Ultram 50 mg 1 tablet every 6 hours as needed for pain. She was instructed to stop taking her Augmentin, as well as her clindamycin, and she will be following up with me in my office within 2 weeks. She will be calling my office sooner if she has any difficulties or recurrence of condition. Dictated By: TOMY Shine Job#: [id number] KHOI
== END 2017-12-03 18:30 | disposition home or self-care (01) | DRG 386 ==
LOC: ER 17:19 → ERHOLD 23:41 → MED/SURG 11-30 00:36
DX: K50.012 Crohn's disease of small intestine with intestinal obstruction (principal); I13.0 Hypertensive heart and chronic kidney disease with heart failure and stage 1 through stage 4 chronic kidney disease, or unspecified chronic kidney disease; I25.2 Old myocardial infarction; I25.10 Atherosclerotic heart disease of native coronary artery without angina pectoris; N18.9 Chronic kidney disease, unspecified; Z86.718 Personal history of other venous thrombosis and embolism; Z86.711 Personal history of pulmonary embolism; Z91.048 Other nonmedicinal substance allergy status; Z88.8 Allergy status to other drugs, medicaments and biological substances; Z95.828 Presence of other vascular implants and grafts; I50.9 Heart failure, unspecified; Z95.5 Presence of coronary angioplasty implant and graft; M06.9 Rheumatoid arthritis, unspecified
CPT/HCPCS: 36415; 74018; 74019; 74177; 80048; 80053; 81001; 82150; 82550; 82553; 83690; 84484; 85025; 87086; 99284; J0500; J1956; J2405; J2920; J2930; J3480; J7030; J7050; J7120; Q9967

== ENCOUNTER → 2017-12-23 | Outpatient (CLI) | payer MEDICARE ==
[~2017-12-23] MED LIST changes: +ASPIR 8181 MG PO; +MEGESTROL ACETA40 MG PO; +SULFASALAZINE500 MG PO; +TIZANIDINE HCL4 MG PO
--- NOTE | 2017-12-23 14:25 | Diagnostic Imaging Report ---
Exam: Small bowel follow-through dated 12/23/2017 History: Crohn's disease with abdominal pain Comparison: CT scan of the abdomen and pelvis dated 11/29/2017 Findings: Small bowel follow-through shows prolonged transit time greater than 3 hours to the reach the cecum. There is dilatation of the distal ileum measuring up to 7.5 cm. The terminal ileum is irregular, narrowed and ulcerated. Findings are compatible with active Crohn's disease with stricturing. Impression: 1. Partial small bowel obstruction. 2. Irregular narrowed terminal ileum. Signed by: Dr. Frank Santizo DO on 12/23/2017 2:21 PM
== END ==
LOC: DX 07:43
PROVIDERS: ATTEND Internal Medicine Gastroenterology
DX: K50.90 Crohn's disease, unspecified, without complications (principal)
CPT/HCPCS: 74250

== ENCOUNTER 2018-02-27 16:08 | Inpatient (IN) | payer MEDICARE ==
[~2018-02-27] VITALS: Ht 154.9 cm; Wt 73.1 kg
[2018-02-27 17:43] LABS: BILIRUBIN,URINE 1+ (NEGATIVE); CLARITY,URINE SL CLOUDY (CLEAR); COLOR,URINE YELLOW (YELLOW); KETONES,URINE NEGATIVE (NEGATIVE); LEUKOCYTE ESTERASE ,URINE TRACE (NEGATIVE); NITRITE,URINE POSITIVE (NEGATIVE); PROTEIN,URINE DIPSTICK 1+ (NEGATIVE); URINE UROBILINOGEN 0.2 mg/dL (0.2 - 1)
[2018-02-27 17:53] LABS: BASOPHILS % 0.4 % (0.0-1.0); EOSINOPHILS # (AUTO) 0.1 (0.0-0.4); EOSINOPHILS % 0.6 % (0.0-6.0); HEMATOCRIT 37.6 % (34.2-44.1); HEMOGLOBIN 11.9 g/dL (12.0-16.0); LYMPHOCYTES % 22.5 % (18.0-39.1); MEAN CORPUSCULAR HEMOGLOBIN 31.8 pg (28-32); MEAN CORPUSCULAR HGB CONC 31.6 g/dL (31-35); MEAN CORPUSCULAR VOLUME 100.5 fL (81-99); MONOCYTES # (AUTO) 0.9 (0.2-0.8); MONOCYTES % 9.6 % (4.4-11.3); NEUTROPHILS % 66.6 % (38.7-80.0); PLATELET COUNT 262 x10e3/uL (140-360); RED BLOOD COUNT 3.74 x10e6/uL (3.6-5.1); RED CELL DISTRIBUTION WIDTH 14.6 % (11.7-14.4)
[2018-02-27 17:59] LABS: BACTERIA,URINE MANY /HPF; CALCIUM OXALATE CRYSTALS,UR FEW (FEW); EPITHELIAL CELLS,URINE FEW /LPF; RBC,URINE 0-5 /HPF (0-5)
[2018-02-27 18:15] LABS: ALBUMIN 3.7 g/dL (3.5-5.0); ALBUMIN/GLOBULIN RATIO 0.9 (0.8-2.0); ANION GAP 13.7 mmol/L (8-16); CALCIUM 8.9 mg/dL (8.4-10.2); CREATININE, SERUM 1.14 mg/dL (0.57-1.11); POTASSIUM 3.7 mmol/L (3.5-5.1)
[2018-02-27 19:00] LABS: AMYLASE 60 U/L (25-125); LIPASE 13 U/L (8-78)
[2018-02-27] MEDS ORDERED: SODIUM CHLORIDE 0.9% 1000ML 1,000 ML IV SCH (19:00)
[2018-02-27] MEDS ORDERED: MORPHINE SULFATE INJ 4 MG/ML INJ 1ML IV PRN (19:00)
[2018-02-27] MEDS ORDERED: ONDANSETRON HCL INJ 2MG/ML 2ML 2 MG/ML VIAL IV ONE (19:15)
[2018-02-27] MEDS ORDERED: CEFTRIAXONE SOD 1 GM VIAL IV ONE (20:00)
[2018-02-27] MEDS ORDERED: CEFTRIAXONE SOD 1 GM/NS 50 ML 50 ML IV ONE (20:15)
--- NOTE | 2018-02-27 22:14 | Diagnostic Imaging Report ---
EXAM: CT Abdomen and Pelvis WITH contrast INDICATION: abdominal pain and vomiting COMPARISON: CT abdomen and pelvis 11/29/2017 TECHNIQUE: Abdomen and pelvis were scanned utilizing a multidetector helical scanner from the lung base to the pubic symphysis after administration of IV contrast. Coronal and sagittal reformations were obtained. Routine protocol was performed. Scan was performed when during portal venous phase. IV CONTRAST: 100 mL of Isovue 370 ORAL CONTRAST: Water COMPLICATIONS: None RADIATION DOSE: Total DLP: 438.5 mGy*cm Estimated effective dose: (DLP x 0.015 x size factor) mSv Dose modulation, iterative reconstruction, and/or weight based adjustment of the mA/kV was utilized to reduce the radiation dose to as low as reasonably achievable. FINDINGS: LINES and TUBES: None. LOWER THORAX: There is bibasilar atelectasis. HEPATOBILIARY: No focal hepatic lesions. No biliary ductal dilation. GALLBLADDER: Absent SPLEEN: No splenomegaly. PANCREAS: Stable 4.1 cm hypoattenuating lesion at the pancreatic tail. No ductal dilatation. ADRENALS: No adrenal nodules KIDNEYS/URETERS: Kidneys enhance symmetrically. Mild multifocal scarring bilaterally. Stable cortical calcification in the interpolar left kidney. No hydronephrosis. No cystic or solid mass lesions. No stones. GI TRACT: Dilated small bowel loop in the right lower quadrant again noted, measuring up to 4.3 cm in diameter. Similar transition point again noted in the terminal ileum which appears narrowed. PELVIC ORGANS/BLADDER: Unremarkable. LYMPH NODES: Prominent ileocolic nodes, likely reactive. VESSELS: Diffuse vascular calcifications. IVC filter, unchanged. PERITONEUM / RETROPERITONEUM: No free air or fluid. BONES: There are degenerative changes in the lumbar spine. SOFT TISSUES: Stable fat necrosis posterior to the coccyx and right ilium. IMPRESSION: Chronic small bowel obstruction with transition in the terminal ileum. Findings may suggest Crohn's related stricture if there is a history of Crohn's disease. Signed by: DR. Myles Zepeda MD on 02/27/2018 10:11 PM
[2018-02-27] MEDS ORDERED: IOPAMIDOL 370 MG/ML 200 ML INFUS..BTL INJ ONE (22:43)
[2018-02-27] MEDS ORDERED: SODIUM CHLORIDE 0.9% 50ML 50 ML ONE (22:43)
[2018-02-27] MEDS ORDERED: HYDROMORPHONE 2MG/ML 2 MG/ML ML IV PRN (22:45)
[2018-02-27] MEDS ORDERED: BENZOCAINE/TETRACAINE/BUTAMBEN AERO SPRAY 56 GM CAN TOP ONE (22:45)
[2018-02-27] MEDS: SODIUM CHLORIDE 0.9% 1000ML 1,000 ML IV SCH (23:15)
[2018-02-27] MEDS: CEFTRIAXONE SOD 1 GM/NS 50 ML 50 ML IV SCH (23:18)
--- NOTE | 2018-02-27 23:29 | NUR ---
PT HAS SMALL AMT OF BRIGHT RED RETURN IN NGT, AWARE, NGT ON LOW INTERMITTENT SUCTION, DECREASED SUCTION AMOUNT.
--- NOTE | 2018-02-27 23:53 | NUR ---
PT STATES SHE DOES NOT FEEL LIKE NGT IS IN CORRECT PLACE, STATES SHE DOES NOT THINK IT IS IN CORRECT PLACE. MD AWARE, ORDERED KUB TO CHECK PLACEMENT
--- NOTE | 2018-02-28 00:28 | Diagnostic Imaging Report ---
EXAM: ABDOMEN-1VIEW (KUB) DATE: 02/27/2018 11:50 PM INDICATION: NG tube placement COMPARISON: Same day abdominal CT FINDINGS: LINES/TUBES: Interval placement of nasogastric tube with sidehole and tip projecting over the gastric body. BOWEL PATTERN: Small bowel obstruction better seen on same day abdominal CT given the limited air within the dilated segment. SOFT TISSUES: No abnormal calcifications. No mass effect. Excreted contrast within the urinary collecting system. LUNG BASES: Clear. BONES: No acute findings. IMPRESSION: NG tube projects over the stomach. Small bowel obstruction, better seen on same day abdominal CT. Signed by: DR. Myles Zepeda MD on 02/28/2018 12:24 AM
--- NOTE | 2018-02-28 00:45 | NUR ---
pt states she feels better now, clear return in ngt at this time. reports discomfort minimal and states she does not want pain medications. awake alert skin w/d resp nonlab. nad noted.
[2018-02-28] MEDS ORDERED: SERTRALINE HCL25 MG PO (02:45)
[2018-02-28] MEDS: SODIUM CHLORIDE 0.9% 1000ML 1,000 ML IV SCH ×3 (06:38→20:40)
[2018-02-28 06:50] LABS: BASOPHILS % 0.5 % (0.0-1.0); EOSINOPHILS # (AUTO) 0.1 (0.0-0.4); EOSINOPHILS % 0.9 % (0.0-6.0); HEMATOCRIT 32.6 % (34.2-44.1); HEMOGLOBIN 10.4 g/dL (12.0-16.0); LYMPHOCYTES # (AUTO) 2.5 (1.0-3.2); LYMPHOCYTES % 29.2 % (18.0-39.1); MEAN CORPUSCULAR HGB CONC 31.9 g/dL (31-35); MEAN CORPUSCULAR VOLUME 100.3 fL (81-99); MONOCYTES # (AUTO) 0.8 (0.2-0.8); MONOCYTES % 9.7 % (4.4-11.3); NEUTROPHILS % 59.2 % (38.7-80.0); PLATELET COUNT 236 x10e3/uL (140-360); RED BLOOD COUNT 3.25 x10e6/uL (3.6-5.1); RED CELL DISTRIBUTION WIDTH 14.5 % (11.7-14.4)
--- NOTE | 2018-02-28 06:50 | NUR ---
report to darnell ramirez
[2018-02-28 07:07] LABS: ALANINE AMINOTRANSFERASE 19 IU/L (0-55); ALBUMIN/GLOBULIN RATIO 0.9 (0.8-2.0); ALKALINE PHOSPHATASE 98 IU/L (40-150); ANION GAP 10.5 mmol/L (8-16); BLOOD UREA NITROGEN 13 mg/dL (7-26); BUN/CREATININE RATIO 16 (6-25); CALCIUM 8.1 mg/dL (8.4-10.2); CARBON DIOXIDE 22 mmol/L (22-29); CHLORIDE 108 mmol/L (98-107); CREATININE, SERUM 0.82 mg/dL (0.57-1.11); EST GLOMERULAR FILTRATION RATE > 60 ML/MIN (60-); GLUCOSE 91 mg/dL (74-118); POTASSIUM 3.5 mmol/L (3.5-5.1); SODIUM 137 mmol/L (136-145)
--- NOTE | 2018-02-28 09:20 | NUR ---
Pt to Radiology via W/C.
--- NOTE | 2018-02-28 09:53 | Diagnostic Imaging Report ---
Exam: KUB - 2 views Clinical History: Small bowel obstruction. Comparison: KUB 02/27/[address] abdomen/pelvis 02/27/2018. Findings: Enteric tube terminates in the expected location of the distal stomach, the side-port is within the gastric body. IVC filter overlies the L2 and upper L3 vertebral bodies. Bowel gas pattern is nonspecific with paucity of gas within the small and large bowel, but note is made of chronic small bowel obstruction on abdominal CT from 02/27/2018. There is a 7 mm left mid pole renal stone. No evidence of free intraperitoneal air. No acute osseous abnormality. Degenerative changes of the visualized spine. Impression: Enteric tube terminates in the distal stomach. Nonspecific bowel gas pattern on radiograph, but note is made of chronic small bowel obstruction on abdominal CT from 02/27/2018. Signed by: Dr. Arabella Garcia MD on 02/28/2018 9:50 AM
[2018-02-28 12:25] VITALS: BP 156/69
[2018-02-28 12:31] VITALS: BP 156/69
[2018-02-28] MEDS ORDERED: PNEUMOCOCCAL VACCINE POLYVALENT 23 MCG/0.5 ML VIAL IM ONE (14:00)
[2018-02-28] MEDS ORDERED: METHYLPREDNISOLONE SOD SUCC 40 MG/ML VIAL 1ML IV NR (14:15)
[2018-02-28] MEDS ORDERED: CEFTRIAXONE SOD 1 GM/NS 50 ML 50 ML IV SCH (14:15)
--- NOTE | 2018-02-28 14:22 | NUR ---
CASE MANAGEMENT INITIAL ASSESSMENT Dining Room Cashier to bedside to discuss plan of care with patient/family. CM/SW role and care transitions discussed. Anticipated discharge plan discussed along with duration of care. CM discussed patients right to make decisions in care. CM/SW work hours given. Patient lives: PATIENT LIVES IN [address] [place] [address] Admit/Transfer: ED POA/Emergency contact: ASHWINI MASCORRO [phone] Current/Previous Home Health: NONE AT THIS TIME PCP/Follow-up Care: DR. MAKEDA THOMAS Current/Previous DME: NONE Other Services: NONE Employment Status: RETIRED Areas of Concerns: NONE AT THIS TIME Referral Needs: NONE Education Needs: NONE AT THIS TIME IMM/EMERSON given and signed (if applicable): IMM Goal for discharge: DISCHARGE HOME WITH NO NEEDS CM left business card at the bedside with contact information. Name and number was also written on the patients whiteboard. Patient verbalized understanding of discussion. CM will follow-up with ongoing discharge and transition of care needs.
--- NOTE | 2018-02-28 15:20 | NUR ---
Visit made by the Spiritual Care Department Pastoral Visitor, Vanda Hartley. PV provided pastoral presence, prayer, hospitality, and supportive listening. Pastoral Visitor informed pt/family of the scope of Motion Picture [employer] Services and availability. ALEXANDRE PAGAN Distribution Superintendent Spiritual Care Department O: [phone] Pager: [phone] ([phone] number calling from)
[2018-02-28 16:09] VITALS: BP 148/63
[2018-02-28] MEDS: ONDANSETRON HCL INJ 2MG/ML 2ML 2 MG/ML VIAL IV PRN (16:14)
[2018-02-28 20:05] VITALS: BP 144/67
[2018-02-28 20:42] VITALS: BP 144/67
[2018-02-28] MEDS: METHYLPREDNISOLONE SOD SUCC 40 MG/ML VIAL 1ML IV SCH (21:27)
[2018-02-28] MEDS: CEFTRIAXONE SOD 1 GM/NS 50 ML 50 ML IV SCH (21:56)
[2018-03-01] VITALS (8 sets, daily range): BP systolic 122–157; BP diastolic 57–71
[2018-03-01] MEDS: SODIUM CHLORIDE 0.9% 1000ML 1,000 ML IV SCH ×3 (05:30→21:20)
[2018-03-01] MEDS: METHYLPREDNISOLONE SOD SUCC 40 MG/ML VIAL 1ML IV SCH ×3 (05:30→21:55)
[2018-03-01 06:21] LABS: FERRITIN 740.65 ng/mL (4.63-204.00)
[2018-03-01 07:26] LABS: FOLATE 14.4 ng/mL (7.0-15.4)
--- NOTE | 2018-03-01 13:15 | Diagnostic Imaging Report ---
Exam: KUB - 4 views Clinical History: Small bowel obstruction. Comparison: KUB 02/28/[address] abdomen/pelvis 02/27/2018. Findings: Enteric tube terminates in the expected location of the distal stomach, the side-port is within the gastric body. IVC filter overlies the L2 and upper L3 vertebral bodies. Bowel gas pattern is nonspecific with paucity of gas within the small and large bowel, but note is made of chronic small bowel obstruction on abdominal CT from 02/27/2018. Some air is seen in the rectum. There is a 7 mm left mid pole renal stone. No evidence of free intraperitoneal air. No acute osseous abnormality. Degenerative changes of the visualized spine. Atherosclerotic calcifications are present. Impression: Enteric tube terminates in the distal stomach. Nonspecific bowel gas pattern on radiograph, but note is made of chronic small bowel obstruction on abdominal CT from 02/27/2018. Signed by: Dr. Arabella Garcia MD on 03/01/2018 1:12 PM
--- NOTE | 2018-03-01 19:15 | NUR ---
WALKING ROUNDS PERFORMED, RECEIVED PT LAYING SEMI FOWLERS IN BED, AAOX3, RR EVEN AND NON-LABORED, ON RA. NGT TO (R) NARE CONNECTED TO LIWS. NO S/SX OF DISTRESS NOTED. LEFT PT LAYING SEMI FOWLERS IN BED, BED IN LOW LOCKED POSITION, SIDE RAILS UPX2, CALL LIGHT AND PHONE WITHIN REACH.
--- NOTE | 2018-03-01 20:30 | NUR ---
IV NOTED TO (R) AC TO BE INFILTRATED. IVF STOPPED AT THIS TIME.
--- NOTE | 2018-03-01 20:43 | NUR ---
IV TO (R) AC DISCONTINUED. IV CATHETER TIP INTACT. PRESSURE AND DRESSING APPLIED. NEW IV STARTED TO (L) FA 20G. FLUSHES WITHOUT DIFFICULTY, BLOOD RETURN NOTED.
[2018-03-01] MEDS: CEFTRIAXONE SOD 1 GM/NS 50 ML 50 ML IV SCH (21:20)
[2018-03-01] MEDS: SODIUM CHLORIDE 0.9% 250ML IRRIG IR SCH (22:09)
[2018-03-02] VITALS (7 sets, daily range): BP systolic 133–150; BP diastolic 61–67
[2018-03-02] MEDS: SODIUM CHLORIDE 0.9% 250ML IRRIG IR SCH ×3 (02:26→10:15)
[2018-03-02] MEDS: METHYLPREDNISOLONE SOD SUCC 40 MG/ML VIAL 1ML IV SCH ×3 (05:54→21:27)
[2018-03-02] MEDS: SODIUM CHLORIDE 0.9% 1000ML 1,000 ML IV SCH ×2 (05:56→15:55)
[2018-03-02] MEDS: ONDANSETRON HCL INJ 2MG/ML 2ML 2 MG/ML VIAL IV PRN (10:37)
--- NOTE | 2018-03-02 10:38 | NUR ---
PATIENT C/O NAUSEA, NO VOMITING NOTED. MEDICATED WITH ZOFRAN ORDERED. CALL LIGHT WITHIN EASY REACH, FAMILY MEMBER VISITING WITH THE PATIENT.
--- NOTE | 2018-03-02 12:09 | NUR ---
CONDITION STABLE WITHOUT ACUTE, SHE DENIES ABDOMINAL PAIN. CALL LIGHT WITHIN EASY REACH, INSTRUCTED TO CALL FOR ASSISTANCE NEEDED.
--- NOTE | 2018-03-02 12:42 | NUR ---
NG TUBE REMOVED ORDERED BY DR. Pranav THOMAS, PATIENT EDUCATED TO NOTIFY THE PRIMARY NURSE OF ANY ABDOMINAL DISCOMFORT WHEN TAKING LIQUID DIET.
--- NOTE | 2018-03-02 17:35 | NUR ---
PATIENT TOLERATED LIQUID DIET WITHOUT ABDOMINAL PAIN, NAUSEA/VOMITING.
--- NOTE | 2018-03-02 19:10 | NUR ---
WALKING ROUNDS PERFORMED, RECEIVED PT LAYING SEMI FOWLERS IN BED, AAOX3, RR EVEN AND NON-LABORED, ON RA. NO S/SX OF DISTRESS NOTED. LEFT PT LAYING SEMI FOWLERS IN BED, BED IN LOW LOCKED POSITION, SIDE RAILS UPX2, CALL LIGHT AND PHONE WITHIN REACH.
[2018-03-02] MEDS: CEFTRIAXONE SOD 1 GM/NS 50 ML 50 ML IV SCH (21:27)
[2018-03-03] VITALS (8 sets, daily range): BP systolic 123–151; BP diastolic 61–70
[2018-03-03] MEDS: SODIUM CHLORIDE 0.9% 1000ML 1,000 ML IV SCH ×4 (00:19→22:33)
[2018-03-03] MEDS: METHYLPREDNISOLONE SOD SUCC 40 MG/ML VIAL 1ML IV SCH ×3 (05:55→22:31)
--- NOTE | 2018-03-03 07:29 | NUR ---
Rcvd patient in report this am. Patient is asleep in bed at this time. No s/s of distress noted
--- NOTE | 2018-03-03 09:48 | NUR ---
Patient is AAOx3. Patient lung edgar clear to auscultation. Bowel sounds present x4 but hypoactive. No c/o pain in abdomen. Patient tolerating clear liquids. No nausea noted. Patient ambulates with assist. No edema noted
[2018-03-03] MEDS ORDERED: PNEUMOCOCCAL VACCINE POLYVALENT 23 MCG/0.5 ML VIAL ONE (12:47)
--- NOTE | 2018-03-03 14:00 | NUR ---
Patient tolerated her full liquid diet with no complications. No c/o pain in abdomen or N/V
--- NOTE | 2018-03-03 15:53 | NUR ---
Nutrition Screen Note RD Recommendation for Physician: -Rec advancing to GI soft diet as medically appropriate Plan of Care: RD following, monitoring for tolerance and adequacy Nutrition reason for involvement: LOS Primary Diagnose(s): SBO PMH: No H&P in chart. Ht: 61in Wt: 161.13lb BMI: 30.4kg/m2 IBW: 105lb RD Assessment: (03/03) Chart reviewed. No lab since 02/28. Currently on IVF and Solu-Medrol. NGT was removed last night. Visited pt in room who denied significant wt loss, denied decrease in appetite LAMINATOR HAND. Pt denied chewing/swallowing problems and nausea/vomiting. Pt reports feeling hungry and eager to advance her diet. Current full liquid diet is well tolerated. LBM 03/03, loose stool per pt. Anticipate pt able to meet nutritional need through PO intake when diet is advanced. Will cont to monitor. Please consult as needed. Current Diet: full liquid diet Malnutrition Evaluation (03/03/18) The patient does not meet criteria for a specified degree of malnutrition at this time. Will re-evaluate at follow-up as appropriate. Diet Education Needs Assessment: Diet education not indicated. Nutrition Care Level: low Signed: Olga Guerrero, MS, RD, LD
--- NOTE | 2018-03-03 19:13 | NUR ---
Walking rounds complete. report received. patient aaox3, sitting in bed, at bedside. denies any needs at this time. call light within easy reach. bed locked and in lowest position. will continue to monitor the patient.
[2018-03-03] MEDS: CEFTRIAXONE SOD 1 GM/NS 50 ML 50 ML IV SCH (22:31)
[2018-03-04] VITALS: BP 133/63
[2018-03-04 04:00] VITALS: BP 149/65
[2018-03-04] MEDS: METHYLPREDNISOLONE SOD SUCC 40 MG/ML VIAL 1ML IV SCH (06:06)
[2018-03-04] MEDS: SODIUM CHLORIDE 0.9% 1000ML 1,000 ML IV SCH ×2 (06:33→14:33)
--- NOTE | 2018-03-04 07:24 | NUR ---
Received patient and walking rounds complete. Patient laying down resting in bed at this time no signs of distress. Bed in lowest position, wheels locked, side rails up x2, call light in reach. Will continue to monitor.
[2018-03-04 07:49] VITALS: BP 136/60
[2018-03-04 09:25] VITALS: BP 136/60
--- NOTE | 2018-03-04 10:00 | NUR ---
Patient A/O X3, even respirations unlabored RA. Bowel sounds hypoactive, last bowel movement this morning. No complaints of pain of discomfort at this time. LFA 20 gauge IV with NS @ 75mls/hr. Diet advanced to GI soft. Patient is ambulatory. Will continue to monitor.
--- NOTE | 2018-03-04 10:10 | NUR ---
Visit made by the Spiritual Care Department Pastoral Visitor, Marc Ballard. Pt out of room and no family at bedside. A card was left at the bedside to indicate a missed visit from a member of the Spiritual Care team and to inform the pt and family of the availability of a Art Instructor 24 hours a day/7 days a week. A home improvement advisor will follow up as able. ALEXANDRE Hernandezlain Spiritual Care Department O: [phone] Pager: [phone] ([phone] number calling from)
[2018-03-04 11:45] VITALS: BP 141/70
[2018-03-04] MEDS ORDERED: PREDNISONE10 MG PO (14:29)
[2018-03-04] MEDS ORDERED: CEFUROXIME250 MG PO (14:31)
--- NOTE | 2018-03-04 14:50 | NUR ---
Removed patients IV. Catheter tip intact and pressure dressing applied.
--- NOTE | 2018-03-04 15:06 | NUR ---
Patient discharged from facility. Left unit in wheelchair and went home via private auto. Patient gathered all personal belongings. Discharge instructions, follow up information, and home care given to patient. Patient verbalized understanding of discharge instructions. No signs of distress when leaving facility.
[2018-03-05] MEDS ORDERED: PREDNISONE 20 MG TAB PO SCH (09:00)
== END 2018-03-04 15:07 | disposition home or self-care (01) | DRG 386 ==
LOC: ER 16:08 → ERHOLD 23:02 → MED/SURG 02-28 12:14
DX: K50.912 Crohn's disease, unspecified, with intestinal obstruction (principal); N17.9 Acute kidney failure, unspecified; N39.0 Urinary tract infection, site not specified; K50.90 Crohn's disease, unspecified, without complications; I25.10 Atherosclerotic heart disease of native coronary artery without angina pectoris; K86.9 Disease of pancreas, unspecified; M06.9 Rheumatoid arthritis, unspecified
CPT/HCPCS: 36415; 74018; 74019; 74177; 80053; 81001; 82150; 82607; 82728; 82746; 83540; 83690; 84466; 85025; 85045; 90732; 96376; 99284; J0696; J2405; J2920; J7030; Q9967

== ENCOUNTER 2018-12-06 14:18 | Observation (INO) | payer MEDICARE ==
[~2018-12-06] VITALS: Ht 154.9 cm; Wt 75.5 kg
[~2018-12-06 14:18] MED LIST changes: +CEFUROXIME250 MG PO; +SERTRALINE HCL25 MG PO
[2018-12-06 15:56] LABS: BASOPHILS % 0.5 % (0.0-1.0); EOSINOPHILS # (AUTO) 0.2 (0.0-0.4); EOSINOPHILS % 2.2 % (0.0-6.0); HEMATOCRIT 39.3 % (34.2-44.1); HEMOGLOBIN 12.4 g/dL (12.0-16.0); LYMPHOCYTES % 25.5 % (18.0-39.1); MEAN CORPUSCULAR HEMOGLOBIN 31.1 pg (28-32); MEAN CORPUSCULAR HGB CONC 31.6 g/dL (31-35); MEAN CORPUSCULAR VOLUME 98.5 fL (81-99); MONOCYTES # (AUTO) 0.7 (0.2-0.8); MONOCYTES % 8.9 % (4.4-11.3); NEUTROPHILS # (AUTO) 4.7 (2.1-6.9); PLATELET COUNT 218 x10e3/uL (140-360); RED BLOOD COUNT 3.99 x10e6/uL (3.6-5.1); RED CELL DISTRIBUTION WIDTH 15.4 % (11.7-14.4)
[2018-12-06 15:58] LABS: BILIRUBIN,URINE NEGATIVE (NEGATIVE); CLARITY,URINE SL CLOUDY (CLEAR); COLOR,URINE YELLOW (YELLOW); KETONES,URINE NEGATIVE (NEGATIVE); LEUKOCYTE ESTERASE ,URINE NEGATIVE (NEGATIVE); NITRITE,URINE NEGATIVE (NEGATIVE); PROTEIN,URINE DIPSTICK 1+ (NEGATIVE); URINE UROBILINOGEN 0.2 mg/dL (0.2 - 1)
[2018-12-06 16:00] LABS: INR 0.9; PROTHROMBIN TIME 12.6 seconds (11.9-14.5)
[2018-12-06] MEDS ORDERED: SODIUM CHLORIDE 0.9% 500ML 500 ML IV ONE (16:00)
[2018-12-06 16:01] LABS: PARTIAL THROMBOPLASTIN TIME 30.2 seconds (23.8-35.5)
[2018-12-06 16:07] LABS: ALBUMIN 3.8 g/dL (3.5-5.0); ALBUMIN/GLOBULIN RATIO 1.1 (0.8-2.0); ANION GAP 14.5 mmol/L (8-16); CALCIUM 9.1 mg/dL (8.4-10.2); CREATININE, SERUM 1.03 mg/dL (0.57-1.11); POTASSIUM 3.5 mmol/L (3.5-5.1)
[2018-12-06 16:08] LABS: AMORPHOUS SEDIMENT,URINE MODERATE (FEW); BACTERIA,URINE MODERATE /HPF; EPITHELIAL CELLS,URINE FEW /LPF; HYALINE CASTS 0-1 (0-1)
[2018-12-06 16:13] LABS: CREATINE KINASE MB 2.9 ng/mL (0-5.0)
--- NOTE | 2018-12-06 16:51 | Diagnostic Imaging Report ---
History: dizziness Comparison studies: CT head 03/11/2016 Technique: Axial images were obtained from the skull base to the vertex. Coronal and sagittal images reconstructed from the axial data. Dose modulation, iterative reconstruction, and/or weight based adjustment of the mA/kV was utilized to reduce the radiation dose to as low as reasonably achievable. Intravenous contrast: None Findings: Scalp/skull: No fractures. Stable 7 mm left frontal osteoma. Extra-axial spaces: No masses. No fluid collections. Brain sulci: Mildly prominent. Ventricles: Mild compensatory dilatation. No hydrocephalus. Moderate cerebellar folia. Parenchyma: Subtle confluent hypodensities in the supratentorial white matter are small vessel ischemic changes. No masses, hemorrhage, acute or chronic cortical vascular insults. Sellar/suprasellar region: No abnormalities. Craniocervical junction: Patent foramen magnum. No Chiari one malformation. Incidental findings: Atherosclerotic calcifications in the carotid siphons . Impression: No acute abnormalities. Chronic findings: 1. Mild generalized volume loss. Moderate cerebellar volume loss. 2. Mild supratentorial white matter small vessel ischemic changes. Signed by: DR Graeme Flynn M.D. on 12/06/2018 9:09 PM
--- NOTE | 2018-12-06 17:17 | Diagnostic Imaging Report ---
EXAMINATION: CHEST SINGLE (PORTABLE) INDICATION: Dizziness COMPARISON: None FINDINGS: LINES/TUBES:EKG leads overlie the chest. LUNGS:The lungs are well-inflated. No focal consolidation or pulmonary edema. PLEURA:No pleural effusion or pneumothorax. MEDIASTINUM:The cardiomediastinal silhouette appears normal in size and shape. BONES/SOFT TISSUES:No acute osseous injury. ABDOMEN:No free air under the diaphragm. IMPRESSION: No focal pneumonia or pulmonary edema. Signed by: Mini Nunez MD on 12/06/2018 5:14 PM
[2018-12-06] MEDS ORDERED: MECLIZINE HCL 12.5 MG TAB PO PRN (18:30)
[2018-12-06] MEDS ORDERED: ONDANSETRON HCL INJ 2MG/ML 2ML 2 MG/ML VIAL IV PRN (18:30)
[2018-12-06] MEDS: FAMOTIDINE 20 MG/2 ML VIAL IV SCH (18:44)
[2018-12-06 21:41] VITALS: BP 146/71
[2018-12-06 21:49] VITALS: BP 146/71
--- NOTE | 2018-12-06 21:49 | NUR ---
patient is a new admit that arrived via the ER, patient is awake and talking. denies pain or discomfort. patient has a telemetry box. patient has been helped into the bed. bed is in the lowest position and call smallwood is within reach. will continue to monitor patient.
[2018-12-06 22:07] VITALS: BP 146/71
[2018-12-07] VITALS: BP 133/71
[2018-12-07 00:57] LABS: CREATINE KINASE MB 2.4 ng/mL (0-5.0)
[2018-12-07 04:00] VITALS: BP 127/66
[2018-12-07] MEDS: FAMOTIDINE 20 MG/2 ML VIAL IV SCH (05:18)
[2018-12-07 06:16] LABS: BASOPHILS % 0.5 % (0.0-1.0); EOSINOPHILS # (AUTO) 0.3 (0.0-0.4); EOSINOPHILS % 4.6 % (0.0-6.0); HEMATOCRIT 36.1 % (34.2-44.1); HEMOGLOBIN 11.2 g/dL (12.0-16.0); LYMPHOCYTES # (AUTO) 2.8 (1.0-3.2); LYMPHOCYTES % 42.2 % (18.0-39.1); MEAN CORPUSCULAR HEMOGLOBIN 30.8 pg (28-32); MEAN CORPUSCULAR VOLUME 99.2 fL (81-99); MONOCYTES # (AUTO) 0.8 (0.2-0.8); MONOCYTES % 11.7 % (4.4-11.3); NEUTROPHILS # (AUTO) 2.7 (2.1-6.9); NEUTROPHILS % 40.5 % (38.7-80.0); PLATELET COUNT 196 x10e3/uL (140-360); RED BLOOD COUNT 3.64 x10e6/uL (3.6-5.1); RED CELL DISTRIBUTION WIDTH 15.7 % (11.7-14.4)
[2018-12-07 06:30] LABS: ALBUMIN 3.1 g/dL (3.5-5.0); CALCIUM 8.8 mg/dL (8.4-10.2); CHOL/HDL RATIO 2.9 (3.0-3.6); CREATININE, SERUM 0.97 mg/dL (0.57-1.11)
[2018-12-07 06:37] LABS: CREATINE KINASE MB 3.4 ng/mL (0-5.0)
--- NOTE | 2018-12-07 07:07 | NUR ---
report given to day nurse. patient is resting comfortably in bed. bed is in lowest position and call smallwood is within reach.
[2018-12-07 07:29] VITALS: BP 128/67
[2018-12-07 11:07] VITALS: BP 128/67
[2018-12-07 11:24] VITALS: BP 167/72
--- NOTE | 2018-12-07 11:46 | Diagnostic Imaging Report ---
Exams: Brain MRI and neck and intracranial MRA without IV contrast History: Dizziness, near syncope Comparison studies: Head CT 12/06/2018 Technique: Brain: Sagittal and axial T2, axial DWI, and axial coronal T2 flair, axial T1 FLAIR and axial T2*GRE. Neck MRA: Axial 2-D [id number] with 3-D MIP reformats. Intracranial MRA: Axial 3-D [id number] with coronal, sagittal and 3-D MIP reformats. Findings: Brain: Scalp: No abnormal signal. No masses. Bone marrow: Normal in signal intensity. Ventricles: Mild compensatory dilatation. No hydrocephalus. Extra axial spaces: No mass, no fluid collection. Parenchyma: No mass, hemorrhage or acute ischemia. A few scattered T2 FLAIR hyperintense foci in the supratentorial white matter and mildly confluent T2 FLAIR hyperintense signal changes in the periatrial white matter are nonspecific but are most compatible with chronic microvascular ischemic changes. There is mild generalized parenchymal volume loss with slightly greater disproportionate volume loss in the cerebellum (predominantly within the superior cerebellum and vermis). Disproportionate cerebellar volume loss is nonspecific but could be related to chronic EtOH use or chronic use of antiepileptic medication (i.e. Dilantin/phenytoin) In the appropriate clinical setting, among other etiologies. Suprasellar region: No abnormalities. Craniocervical junction: No abnormalities. The foramen magnum is patent. No Chiari malformations. Vessels: Normal flow-voids in the arteries and sinuses. Incidental findings: Mild left inferior mastoid mucosal thickening or effusion. Mild bilateral ethmoid air cell mucosal thickening Mildly degenerated C2 C4 and C4-C5 discs with disc osteophyte complexes which result in at least mild to moderate canal stenosis. Degree stenosis could be better evaluated by dedicated cervical spine MRI as clinically warranted. Neck MRA: If present, stenosis is calculated utilizing the NASCET method which calculates the degree of stenosis with reference to the normal lumen of the carotid artery distal to the stenosis. Common carotid arteries: Patent, no stenosis. Carotid bulbs: Atherosclerosis bilaterally with mild stenosis on the right in the range of approximately 30-50% stenosis. No (0%) stenosis on the left by NASCET criteria. Internal carotid arteries: Patent, no flow limiting stenosis. Vertebral arteries: Patent, no flow limiting stenosis. Cannot likely evaluate the origins due to motion artifacts. 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 Middle cerebral arteries: Patent, no proximal branch occlusion or stenosis. Anterior cerebral arteries: Patent, no proximal branch occlusion or stenosis. Posterior circulation: Vertebral arteries: Patent, no flow abnormalities on the right. Nondominant left vertebral artery essentially terminates as a PICA and is hypoplastic and poorly visualized beyond the PICA origin. Basilar artery: Patent, no flow abnormalities. Posterior cerebral arteries: Patent, no proximal branch occlusion or stenosis. There are prominent bilateral posterior commuting indicating arteries with hypoplastic bilateral P1 segments (bilateral DIRECTOR OF PHARMACY origins. Anatomical variants: Acom: Visualized. Pcoms: Bilateral DIRECTOR OF PHARMACY origins. Vertebral arteries: Right is dominant. Left essentially terminates as a PICA branch.. IMPRESSION: Brain: 1. No acute intracranial abnormalities. 2. Mild chronic microvascular ischemic changes. 3. Mild generalized cerebral volume loss with superimposed nonspecific disproportionate moderate cerebellar volume loss. Neck MRA: 1. Patent bilateral carotid and vertebral arteries. 2. Atherosclerosis at the carotid bulbs with mild stenosis on the right (likely in the range of 30-50%) and no (0%) stenosis on the left per NASCET criteria. Intracranial MRA: 1. No major branch occlusion or stenosis. 2. Nonstenotic calcified atherosclerosis in the carotid siphons. 3. Anatomical variants as described. Signed by: Dr. Martin Stout M.D. on 12/07/2018 11:42 AM
--- NOTE | 2018-12-07 11:46 | Diagnostic Imaging Report ---
Exams: Brain MRI and neck and intracranial MRA without IV contrast History: Dizziness, near syncope Comparison studies: Head CT 12/06/2018 Technique: Brain: Sagittal and axial T2, axial DWI, and axial coronal T2 flair, axial T1 FLAIR and axial T2*GRE. Neck MRA: Axial 2-D [id number] with 3-D MIP reformats. Intracranial MRA: Axial 3-D [id number] with coronal, sagittal and 3-D MIP reformats. Findings: Brain: Scalp: No abnormal signal. No masses. Bone marrow: Normal in signal intensity. Ventricles: Mild compensatory dilatation. No hydrocephalus. Extra axial spaces: No mass, no fluid collection. Parenchyma: No mass, hemorrhage or acute ischemia. A few scattered T2 FLAIR hyperintense foci in the supratentorial white matter and mildly confluent T2 FLAIR hyperintense signal changes in the periatrial white matter are nonspecific but are most compatible with chronic microvascular ischemic changes. There is mild generalized parenchymal volume loss with slightly greater disproportionate volume loss in the cerebellum (predominantly within the superior cerebellum and vermis). Disproportionate cerebellar volume loss is nonspecific but could be related to chronic EtOH use or chronic use of antiepileptic medication (i.e. Dilantin/phenytoin) In the appropriate clinical setting, among other etiologies. Suprasellar region: No abnormalities. Craniocervical junction: No abnormalities. The foramen magnum is patent. No Chiari malformations. Vessels: Normal flow-voids in the arteries and sinuses. Incidental findings: Mild left inferior mastoid mucosal thickening or effusion. Mild bilateral ethmoid air cell mucosal thickening Mildly degenerated C2 C4 and C4-C5 discs with disc osteophyte complexes which result in at least mild to moderate canal stenosis. Degree stenosis could be better evaluated by dedicated cervical spine MRI as clinically warranted. Neck MRA: If present, stenosis is calculated utilizing the NASCET method which calculates the degree of stenosis with reference to the normal lumen of the carotid artery distal to the stenosis. Common carotid arteries: Patent, no stenosis. Carotid bulbs: Atherosclerosis bilaterally with mild stenosis on the right in the range of approximately 30-50% stenosis. No (0%) stenosis on the left by NASCET criteria. Internal carotid arteries: Patent, no flow limiting stenosis. Vertebral arteries: Patent, no flow limiting stenosis. Cannot likely evaluate the origins due to motion artifacts. 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 Middle cerebral arteries: Patent, no proximal branch occlusion or stenosis. Anterior cerebral arteries: Patent, no proximal branch occlusion or stenosis. Posterior circulation: Vertebral arteries: Patent, no flow abnormalities on the right. Nondominant left vertebral artery essentially terminates as a PICA and is hypoplastic and poorly visualized beyond the PICA origin. Basilar artery: Patent, no flow abnormalities. Posterior cerebral arteries: Patent, no proximal branch occlusion or stenosis. There are prominent bilateral posterior commuting indicating arteries with hypoplastic bilateral P1 segments (bilateral INSEAM TRIMMING MACHINE OPERATOR origins. Anatomical variants: Acom: Visualized. Pcoms: Bilateral INSEAM TRIMMING MACHINE OPERATOR origins. Vertebral arteries: Right is dominant. Left essentially terminates as a PICA branch.. IMPRESSION: Brain: 1. No acute intracranial abnormalities. 2. Mild chronic microvascular ischemic changes. 3. Mild generalized cerebral volume loss with superimposed nonspecific disproportionate moderate cerebellar volume loss. Neck MRA: 1. Patent bilateral carotid and vertebral arteries. 2. Atherosclerosis at the carotid bulbs with mild stenosis on the right (likely in the range of 30-50%) and no (0%) stenosis on the left per NASCET criteria. Intracranial MRA: 1. No major branch occlusion or stenosis. 2. Nonstenotic calcified atherosclerosis in the carotid siphons. 3. Anatomical variants as described. Signed by: Dr. Martin Stout M.D. on 12/07/2018 11:42 AM
--- NOTE | 2018-12-07 11:46 | Diagnostic Imaging Report ---
Exams: Brain MRI and neck and intracranial MRA without IV contrast History: Dizziness, near syncope Comparison studies: Head CT 12/06/2018 Technique: Brain: Sagittal and axial T2, axial DWI, and axial coronal T2 flair, axial T1 FLAIR and axial T2*GRE. Neck MRA: Axial 2-D [id number] with 3-D MIP reformats. Intracranial MRA: Axial 3-D [id number] with coronal, sagittal and 3-D MIP reformats. Findings: Brain: Scalp: No abnormal signal. No masses. Bone marrow: Normal in signal intensity. Ventricles: Mild compensatory dilatation. No hydrocephalus. Extra axial spaces: No mass, no fluid collection. Parenchyma: No mass, hemorrhage or acute ischemia. A few scattered T2 FLAIR hyperintense foci in the supratentorial white matter and mildly confluent T2 FLAIR hyperintense signal changes in the periatrial white matter are nonspecific but are most compatible with chronic microvascular ischemic changes. There is mild generalized parenchymal volume loss with slightly greater disproportionate volume loss in the cerebellum (predominantly within the superior cerebellum and vermis). Disproportionate cerebellar volume loss is nonspecific but could be related to chronic EtOH use or chronic use of antiepileptic medication (i.e. Dilantin/phenytoin) In the appropriate clinical setting, among other etiologies. Suprasellar region: No abnormalities. Craniocervical junction: No abnormalities. The foramen magnum is patent. No Chiari malformations. Vessels: Normal flow-voids in the arteries and sinuses. Incidental findings: Mild left inferior mastoid mucosal thickening or effusion. Mild bilateral ethmoid air cell mucosal thickening Mildly degenerated C2 C4 and C4-C5 discs with disc osteophyte complexes which result in at least mild to moderate canal stenosis. Degree stenosis could be better evaluated by dedicated cervical spine MRI as clinically warranted. Neck MRA: If present, stenosis is calculated utilizing the NASCET method which calculates the degree of stenosis with reference to the normal lumen of the carotid artery distal to the stenosis. Common carotid arteries: Patent, no stenosis. Carotid bulbs: Atherosclerosis bilaterally with mild stenosis on the right in the range of approximately 30-50% stenosis. No (0%) stenosis on the left by NASCET criteria. Internal carotid arteries: Patent, no flow limiting stenosis. Vertebral arteries: Patent, no flow limiting stenosis. Cannot likely evaluate the origins due to motion artifacts. 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 Middle cerebral arteries: Patent, no proximal branch occlusion or stenosis. Anterior cerebral arteries: Patent, no proximal branch occlusion or stenosis. Posterior circulation: Vertebral arteries: Patent, no flow abnormalities on the right. Nondominant left vertebral artery essentially terminates as a PICA and is hypoplastic and poorly visualized beyond the PICA origin. Basilar artery: Patent, no flow abnormalities. Posterior cerebral arteries: Patent, no proximal branch occlusion or stenosis. There are prominent bilateral posterior commuting indicating arteries with hypoplastic bilateral P1 segments (bilateral [employer]BER origins. Anatomical variants: Acom: Visualized. Pcoms: Bilateral ARCH[employer] MEMBER origins. Vertebral arteries: Right is dominant. Left essentially terminates as a PICA branch.. IMPRESSION: Brain: 1. No acute intracranial abnormalities. 2. Mild chronic microvascular ischemic changes. 3. Mild generalized cerebral volume loss with superimposed nonspecific disproportionate moderate cerebellar volume loss. Neck MRA: 1. Patent bilateral carotid and vertebral arteries. 2. Atherosclerosis at the carotid bulbs with mild stenosis on the right (likely in the range of 30-50%) and no (0%) stenosis on the left per NASCET criteria. Intracranial MRA: 1. No major branch occlusion or stenosis. 2. Nonstenotic calcified atherosclerosis in the carotid siphons. 3. Anatomical variants as described. Signed by: Dr. Martin Stout M.D. on 12/07/2018 11:42 AM
[2018-12-07 15:31] VITALS: BP 131/59
[2018-12-07] MEDS ORDERED: LEVAQUIN500 MG PO (17:36)
[2018-12-07] MEDS ORDERED: MECLIZINE HCL12.5 MG PO (17:43)
[2018-12-07] MEDS ORDERED: FAMOTIDINE 20 MG TAB PO SCH (21:00)
== END 2018-12-07 18:05 | disposition home or self-care (01) ==
LOC: ER 14:18 → ERHOLD 18:28 → IMCU 21:48
DX: H81.13 Benign paroxysmal vertigo, bilateral (principal); R55 Syncope and collapse; Z88.8 Allergy status to other drugs, medicaments and biological substances; Z91.048 Other nonmedicinal substance allergy status; I25.10 Atherosclerotic heart disease of native coronary artery without angina pectoris; I25.2 Old myocardial infarction; Z87.440 Personal history of urinary (tract) infections; E78.5 Hyperlipidemia, unspecified; Z86.718 Personal history of other venous thrombosis and embolism; I12.9 Hypertensive chronic kidney disease with stage 1 through stage 4 chronic kidney disease, or unspecified chronic kidney disease; N18.9 Chronic kidney disease, unspecified; K50.90 Crohn's disease, unspecified, without complications; M06.9 Rheumatoid arthritis, unspecified
CPT/HCPCS: 36415 ×2; 70450; 70544; 70547; 70551; 71045; 80053 ×2; 80061; 81001; 82550 ×2; 82553 ×2; 84484 ×2; 85025 ×2; 85610; 85730; 87086; 93005; 93306; 99284; G0378 ×2; J7040

== ENCOUNTER 2019-04-09 12:39 | Emergency (ER) | payer MEDICARE ==
[~2019-04-09] VITALS: Ht 154.9 cm; Wt 75.3 kg
[~2019-04-09 12:39] MED LIST changes: +LEVAQUIN500 MG PO; +MECLIZINE HCL12.5 MG PO
[2019-04-09 13:26] LABS: BASOPHILS # (AUTO) 0.1 (0.0-0.1); BASOPHILS % 0.5 % (0.0-1.0); EOSINOPHILS # (AUTO) 0.1 (0.0-0.4); EOSINOPHILS % 0.3 % (0.0-6.0); HEMATOCRIT 36.1 % (34.2-44.1); HEMOGLOBIN 11.7 g/dL (12.0-16.0); LYMPHOCYTES # (AUTO) 1.4 (1.0-3.2); LYMPHOCYTES % 9.3 % (18.0-39.1); MEAN CORPUSCULAR HEMOGLOBIN 31.2 pg (28-32); MEAN CORPUSCULAR HGB CONC 32.4 g/dL (31-35); MEAN CORPUSCULAR VOLUME 96.3 fL (81-99); MONOCYTES # (AUTO) 1.6 (0.2-0.8); MONOCYTES % 10.3 % (4.4-11.3); NEUTROPHILS # (AUTO) 12.2 (2.1-6.9); NEUTROPHILS % 78.8 % (38.7-80.0); PLATELET COUNT 221 x10e3/uL (140-360); RED BLOOD COUNT 3.75 x10e6/uL (3.6-5.1); RED CELL DISTRIBUTION WIDTH 15.2 % (11.7-14.4)
--- NOTE | 2019-04-09 13:27 | Diagnostic Imaging Report ---
Chest, PA and lateral. History: Cough, fever. Comparison: None available. Discussion: The heart is within normal limits of size. The mediastinal and hilar contours are unremarkable. No focal consolidation, pleural effusion, or pneumothorax. IMPRESSION: No radiographic evidence of acute cardiopulmonary process. Signed by: Ian Philip MD on 04/09/2019 1:24 PM
[2019-04-09 13:46] LABS: INFLUENZAE A&B ANTIGEN (RAPID) NEGATIVE (NEGATIVE)
[2019-04-09 13:47] LABS: ALBUMIN 3.6 g/dL (3.5-5.0); ALBUMIN/GLOBULIN RATIO 0.8 (0.8-2.0); ANION GAP 10.6 mmol/L (8-16); CALCIUM 9.2 mg/dL (8.4-10.2); CREATININE, SERUM 1.36 mg/dL (0.57-1.11); POTASSIUM 3.6 mmol/L (3.5-5.1)
[2019-04-09 13:54] LABS: CREATINE KINASE MB 0.8 ng/mL (0-5.0)
[2019-04-09 14:03] LABS: STREPTOCOCCUS GRP A ANTIGEN NEGATIVE (NEGATIVE)
[2019-04-09 15:12] VITALS: BP 145/72
== END 2019-04-09 15:22 | disposition home or self-care (01) ==
LOC: ER 12:39
DX: R50.9 Fever, unspecified (principal); R05 Cough; B34.9 Viral infection, unspecified
CPT/HCPCS: 36415; 71046; 80053; 82550; 82553; 83518; 83880; 84484; 85025; 87070; 87400; 93005; 99283

== ENCOUNTER 2019-04-14 10:57 | Inpatient (IN) | payer MEDICARE, OTHER ==
[~2019-04-14] VITALS: Ht 154.9 cm; Wt 77.1 kg
[2019-04-14] MEDS ORDERED: ALBUTEROL SULF 0.083% NEB SOLN 3 ML NEB NEB STA (11:05)
[2019-04-14] MEDS ORDERED: IPRATROPIUM BROMIDE 0.02% 2.5 ML NEB NEB STA (11:05)
[2019-04-14] MEDS ORDERED: CEFTRIAXONE SOD 1 GM/NS 50 ML 50 ML IV ONE (11:13)
[2019-04-14] MEDS ORDERED: SODIUM CHLORIDE 0.9% 1000ML 1,000 ML IV STA (11:16)
[2019-04-14] MEDS ORDERED: AZITHROMYCIN 500MG/NS 250 ML 250 ML IV ONE (11:30)
[2019-04-14] MEDS ORDERED: CEFTRIAXONE SOD 1 GM VIAL ONE (11:40)
[2019-04-14 11:45] LABS: BASOPHILS # (AUTO) 0.1 (0.0-0.1); BASOPHILS % 0.2 % (0.0-1.0); HEMATOCRIT 37.2 % (34.2-44.1); HEMOGLOBIN 11.8 g/dL (12.0-16.0); LYMPHOCYTES # (AUTO) 1.6 (1.0-3.2); LYMPHOCYTES % 7.8 % (18.0-39.1); MEAN CORPUSCULAR HGB CONC 31.7 g/dL (31-35); MEAN CORPUSCULAR VOLUME 97.6 fL (81-99); MONOCYTES # (AUTO) 0.8 (0.2-0.8); MONOCYTES % 3.7 % (4.4-11.3); NEUTROPHILS # (AUTO) 17.9 (2.1-6.9); NEUTROPHILS % 87.5 % (38.7-80.0); PLATELET COUNT 281 x10e3/uL (140-360); RED BLOOD COUNT 3.81 x10e6/uL (3.6-5.1); RED CELL DISTRIBUTION WIDTH 15.7 % (11.7-14.4)
[2019-04-14] MEDS: IBUPROFEN 600 MG TAB PO NR ×2 (11:51→12:47)
[2019-04-14 11:52] LABS: INR 1.17; PROTHROMBIN TIME 15.7 seconds (11.9-14.5)
[2019-04-14 11:53] LABS: PARTIAL THROMBOPLASTIN TIME 27.5 seconds (23.8-35.5)
[2019-04-14 11:59] LABS: ALBUMIN 3.2 g/dL (3.5-5.0); ALBUMIN/GLOBULIN RATIO 0.7 (0.8-2.0); ANION GAP 11.3 mmol/L (8-16); CALCIUM 9.1 mg/dL (8.4-10.2); CREATININE, SERUM 1.08 mg/dL (0.57-1.11); POTASSIUM 3.3 mmol/L (3.5-5.1)
[2019-04-14] MEDS ORDERED: PIPER-TAZ 3.375 GM 50 ML IV ONE (12:15)
[2019-04-14] MEDS ORDERED: ACETAMINOPHEN 325 MG TAB PO NR (12:15)
[2019-04-14] MEDS ORDERED: ACETAMINOPHEN 325 MG TAB ONE (12:22)
[2019-04-14] MEDS ORDERED: PIPER-TAZ 3.375 GM 50 ML ONE (12:23)
[2019-04-14] MEDS ORDERED: SODIUM CHLORIDE 0.9% 1000ML 1,000 ML ONE (12:23)
[2019-04-14] MEDS ORDERED: SODIUM CHLORIDE 0.9% 1000ML 1,000 ML IV ONE (12:30)
--- NOTE | 2019-04-14 12:43 | Diagnostic Imaging Report ---
EXAMINATION: CHEST 2 VIEWS INDICATION: Cough. COMPARISON: Chest radiograph 04/09/2019. FINDINGS: TUBES and LINES: None. LUNGS: Lungs are well inflated. Interval development of patchy opacity in the right upper lung and right greater than left lower lungs. Mild bronchial wall thickening. PLEURA: No pleural effusion or pneumothorax. HEART AND MEDIASTINUM: The cardiomediastinal silhouette is unremarkable. BONES AND SOFT TISSUES: No acute osseous lesion. Soft tissues are unremarkable. UPPER ABDOMEN: No free air under the diaphragm. IMPRESSION: Multifocal patchy opacities, suggestive of developing pneumonia in the setting of cough. Recommend follow-up chest radiograph in 6-8 weeks to assess for resolution. Signed by: Dr. Arabella Garcia MD on 04/14/2019 12:41 PM
[2019-04-14 12:55] LABS: CREATINE KINASE MB 1.4 ng/mL (0-5.0)
[2019-04-14] MEDS ORDERED: VANCOMYCIN 1GM/NS 250 ML 250 ML IV STA (13:04)
[2019-04-14] MEDS ORDERED: VANCOMYCIN 1GM/NS 250 ML 250 ML ONE (13:14)
[2019-04-14] MEDS ORDERED: IBUPROFEN 600 MG TAB ONE (13:14)
[2019-04-14] MEDS ORDERED: VANCOMYCIN HCL 1GM/NS 250 ML BAG IV SCH (13:15)
[2019-04-14] MEDS ORDERED: ONDANSETRON HCL INJ 2MG/ML 2ML 2 MG/ML VIAL ONE (13:15)
[2019-04-14] MEDS: VANCOMYCIN 1GM/NS 250 ML 250 ML IV SCH (13:42)
[2019-04-14] MEDS ORDERED: IBUPROFEN 600 MG TAB PO STA (13:44)
--- NOTE | 2019-04-14 13:45 | NUR ---
diana covering for li today. diana here seeing pt
[2019-04-14] MEDS ORDERED: POTASSIUM CHLORIDE 10MEQ EA PO NR (14:00)
--- NOTE | 2019-04-14 14:58 | History and Physical ---
CHIEF COMPLAINT: Shortness of breath and cough. HISTORY OF PRESENT ILLNESS: This is a 69-year-old woman who presents to [facility] with a 1-week history of cough, chest congestion, shortness of breath. The patient was seen at [facility] Emergency Room on Tuesday, April 09, 2019, and was prescribed a 5-day course of oral levofloxacin. The patient states she thought she was doing better, but 2 days prior to admission, she began experiencing shortness of breath and worsening cough. She also complains of fever and chills. In the emergency room on this visit, the patient was found to have a white blood cell count of 20,500 with 87% segmented neutrophils. Hemoglobin is 11.8 g/dL. The patient's chemistries were unremarkable except potassium 3.3. The patient's BUN and creatinine are 19 and 1.08 respectively. The patient's B-type natriuretic peptide level was elevated at 356. Chest film performed in the emergency room revealed multifocal patchy opacities. The patient was admitted for further evaluation and treatment. REVIEW OF SYSTEMS: GENERAL: Fever and chills in the last few days. Weight has been stable. HEENT: No headaches. No visual changes. CARDIOVASCULAR/RESPIRATORY: Complains of shortness of breath, particularly with exertion over the last few days, complains of worsening cough for the last week. Denies any chest pain or tightness. GI: No nausea, vomiting, or constipation. : No UTI symptoms. NEUROMUSCULAR: No limb weakness or numbness. PAST MEDICAL HISTORY: 1. Chronic systolic/diastolic congestive heart failure. 2. Coronary artery disease (coronary stent placed in October 2015). 3. History of lower extremity deep venous thrombosis. 4. History of pulmonary embolism. 5. Crohn disease. 6. Mild obesity. 7. Anemia secondary to chronic disease. 8. Hypertensive heart disease. 9. Rheumatoid arthritis. 10. Depression. 11. GERD. PAST SURGICAL HISTORY: 1. section twice. 2. Appendectomy. 3. IVC filter placement in April 2016. 4. Coronary artery stent placement in October 2015. 5. PEG tube placement and removal. FAMILY HISTORY: Father had chronic bronchitis and congestive heart failure. ALLERGIES: 1. PLASTIC TAPE. 2. HEPARIN. SOCIAL HISTORY: This woman is , lives with her . No history of tobacco or alcohol use. HOME MEDICATIONS: 1. Aspirin 81 mg daily. 2. Levofloxacin 500 mg daily for 5 days (she just finished this medication). 3. Calcium carbonate with vitamin D 1 pill twice daily. 4. Zyrtec 10 mg at bedtime. 5. Vitamin D3 of 2000 units daily. 6. Folic acid 1 mg daily. 7. Plaquenil 200 mg at bedtime. 8. Lorazepam 0.25 mg every 6 hours p.r.n. anxiety. 9. Meclizine 25 mg b.i.d. 10. Megace 120 mg daily. 11. Methotrexate 17.5 mg once a week. 12. Metoprolol succinate 25 mg daily. 13. Ondansetron 4 mg every 6 hours p.r.n. nausea and vomiting. 14. Pantoprazole 40 mg daily. 15. Sertraline 25 mg daily. 16. Sulfasalazine 1000 mg b.i.d. 17. Tizanidine 2 mg at bedtime. 18. Tramadol 50 mg q.6h. PHYSICAL EXAMINATION: GENERAL: She is awake. She is alert. She is fully oriented. Her and adult daughter are bedside. She does not appear to be in any respiratory distress, but she does look slightly ill. VITAL SIGNS: Her temperature is 101.5, heart rate is 104, respiratory rate is 22, oxygen saturation 91% on room air, it is 100% on 2 L oxygen; blood pressure is 118/46. Height is 5 feet 1 inch, weight is 170 pounds, BMI 32. INTEGUMENT: Skin is warm and dry. No pallor, jaundice, or diaphoresis. HEENT: Anicteric sclerae. Moist mucous membranes. NECK: Supple. No evidence of jugular venous distention. CARDIOVASCULAR: Distant heart sounds. Tachycardic rate. Regular rhythm. The patient has S3 gallop. LUNGS: The patient has diminished breath sounds at the bases, particularly on the right. ABDOMEN: Obese, benign. EXTREMITIES: The patient has trace edema in the right lower leg with tenderness on palpating the posterior right lower leg area. NEUROLOGIC: Intact. DIAGNOSES: 1. Sepsis secondary to bilateral pneumonia. 2. Bilateral pneumonia, likely gram-negative shamir. 3. Acute on chronic systolic/diastolic congestive heart failure. 4. Coronary artery disease. 5. History of recurrent lower extremity deep venous thrombosis. 6. Rheumatoid arthritis. 7. Crohn disease. PLAN: 1. Order blood cultures. 2. Order scheduled nebulized bronchodilators and supplemental oxygen. 3. Intravenous antibiotics. 4. Admit to intensive care unit. 5. Consult enrichment specialist. 6. We will order a stat venous Doppler of the right lower leg to assess for any evidence of deep venous thrombosis. I spent 75 minutes in the care of this intensive care unit patient. MD KEILA Cardenas/DAINA /[id number] MADIE
--- NOTE | 2019-04-14 16:45 | Diagnostic Imaging Report ---
EXAM: CT Chest WITH contrast INDICATION: Multilobar pneumonia. COMPARISON: Chest radiograph 04/14/2019. CT chest 04/29/2016. TECHNIQUE: Chest was scanned utilizing a multidetector helical scanner from the lung apex through the level of the adrenal glands without administration of IV contrast. Coronal and sagittal reformations were obtained. Routine protocol was performed. IV CONTRAST: 100 mL of Omnipaque 300 RADIATION DOSE: Total DLP: 526.8 mGy*cm Estimated effective dose: (DLP x 0.014 x size factor) mSv COMPLICATIONS: None FINDINGS: LINES/ TUBES: None. LUNGS AND AIRWAYS: There are multifocal tree-in-bud and patchy consolidative opacities, most pronounced in the right upper lobe, right middle lobe, and right greater than left lower lobes. Diffuse mild bronchial wall thickening. The central airways are patent. No evidence of central pulmonary embolism, although the study was not tailored for evaluation. Interval resolution of previously noted pulmonary embolism within the right main and branch vessels. PLEURA: The pleural spaces are clear. HEART AND MEDIASTINUM: The thyroid gland is normal. Prominent mediastinal lymph nodes, for example a right paratracheal lymph node on series 2, image 23, measuring up to 1.1 cm short axis, likely reactive. No cardiomegaly or pericardial effusion. Coronary atherosclerosis. Moderate atherosclerotic calcifications of the thoracic aorta and branch vessels. UPPER ABDOMEN: Limited contrast-enhanced views of the upper abdomen. Partially seen IVC filter. Moderate atherosclerotic calcifications of the abdominal aorta and branch vessels. BONES: The visualized bony thorax is within normal limits. SOFT TISSUES: Unremarkable. IMPRESSION: Findings consistent with multifocal pneumonia. Recommend follow-up chest radiograph in 6-8 weeks to assess for resolution. Prominent mediastinal lymph nodes, likely reactive. Interval resolution of previously noted pulmonary embolism within the right main and branch vessels, although current exam was not tailored for evaluation of the pulmonary arteries. Signed by: Dr. Arabella Garcia MD on 04/14/2019 4:43 PM
[2019-04-14] MEDS: CEFEPIME 1GM/NS 0.9% 50 ML 50 ML IV SCH (17:33)
[2019-04-14] MEDS ORDERED: IOPAMIDOL 370 MG/ML 200 ML INFUS..BTL INJ ONE (17:56)
[2019-04-14] MEDS ORDERED: SODIUM CHLORIDE 0.9% 50ML 50 ML ONE (17:56)
[2019-04-14] MEDS ORDERED: ALBUTEROL/IPRATROPIUM 3 ML NEB NEB NR (18:00)
[2019-04-15] MEDS: VANCOMYCIN 1GM/NS 250 ML 250 ML IV SCH ×2 (01:50→14:00)
[2019-04-15] MEDS: CEFEPIME 1GM/NS 0.9% 50 ML 50 ML IV SCH ×2 (05:10→17:00)
[2019-04-15 06:34] LABS: BASOPHILS % 0.2 % (0.0-1.0); EOSINOPHILS # (AUTO) 0.1 (0.0-0.4); EOSINOPHILS % 0.8 % (0.0-6.0); HEMATOCRIT 32.2 % (34.2-44.1); HEMOGLOBIN 9.9 g/dL (12.0-16.0); LYMPHOCYTES # (AUTO) 2.2 (1.0-3.2); LYMPHOCYTES % 17.4 % (18.0-39.1); MEAN CORPUSCULAR HEMOGLOBIN 30.5 pg (28-32); MEAN CORPUSCULAR HGB CONC 30.7 g/dL (31-35); MEAN CORPUSCULAR VOLUME 99.1 fL (81-99); MONOCYTES # (AUTO) 0.4 (0.2-0.8); MONOCYTES % 3.4 % (4.4-11.3); NEUTROPHILS % 77.3 % (38.7-80.0); PLATELET COUNT 211 x10e3/uL (140-360); RED BLOOD COUNT 3.25 x10e6/uL (3.6-5.1); RED CELL DISTRIBUTION WIDTH 15.8 % (11.7-14.4)
[2019-04-15 06:52] LABS: ALANINE AMINOTRANSFERASE 18 IU/L (0-55); ALBUMIN 2.5 g/dL (3.5-5.0); ALBUMIN/GLOBULIN RATIO 0.7 (0.8-2.0); ALKALINE PHOSPHATASE 89 IU/L (40-150); ANION GAP 6.9 mmol/L (8-16); BLOOD UREA NITROGEN 16 mg/dL (7-26); BUN/CREATININE RATIO 19 (6-25); CALCIUM 8.1 mg/dL (8.4-10.2); CARBON DIOXIDE 22 mmol/L (22-29); CHLORIDE 117 mmol/L (98-107); CREATININE, SERUM 0.86 mg/dL (0.57-1.11); EST GLOMERULAR FILTRATION RATE > 60 ML/MIN (60-); GLUCOSE 78 mg/dL (74-118); POTASSIUM 3.9 mmol/L (3.5-5.1); SODIUM 142 mmol/L (136-145)
[2019-04-15] MEDS ORDERED: CEFTRIAXONE SOD 1 GRAM/0.9% SOD CHL 50ML BAG IV SCH (09:00)
[2019-04-15] MEDS: AZITHROMYCIN 500MG/SOD CHL 0.9% 250ML BAG IV SCH (10:37)
[2019-04-15] MEDS ORDERED: LORAZEPAM 0.5 MG TAB PO PRN (11:45)
[2019-04-15] MEDS ORDERED: METOPROLOL SUCCINATE 25 MG TAB XL PO PRN (11:45)
[2019-04-15] MEDS ORDERED: TRAMADOL HCL 50 MG TAB PO PRN (11:45)
--- NOTE | 2019-04-15 13:00 | NUR ---
spoke with lab regarding patients Lovenox order which was cancelled due to medication allergy for heparin. Called attending MD to see if he wanted to continue order or give alternate medication. Spoke with answering service and awaiting for a call back.
--- NOTE | 2019-04-15 13:11 | Progress Note ---
DATE: 04/15/2019 CHIEF COMPLAINT/HISTORY OF PRESENT ILLNESS: This is a 69-year-old woman, whose primary treatment diagnosis is sepsis secondary to bilateral gram-negative shamir pneumonia. The patient states she feels much better today. The patient has been taking weekly methotrexate and daily oral Plaquenil for her underlying rheumatoid arthritis. Moreover, she has been taking sulfasalazine for Crohn disease. The patient apparently failed outpatient antibiotic therapy, namely levofloxacin. The patient states she feels much better today as previous stated. White blood cell count today is 12,800 with 77% segmented neutrophils. Hemoglobin is 9.9 g/dL. The patient's BUN and creatinine today are 16 and 0.86 respectively. Albumin is 2.5 g/dL. The patient underwent a venous Doppler ultrasound of the right lower and the preliminary report does not reveal any evidence of deep venous thrombosis. REVIEW OF SYSTEMS: As per HPI. PHYSICAL EXAMINATION: GENERAL: She is awake, alert, fully oriented. Her is at bedside. VITAL SIGNS: Blood pressure is 130/64, pulse 82, respiratory rate 18 oxygen saturation 96% on room air, temperature is 98.5, BMI 31. INTEGUMENT: Skin is warm and dry. No pallor, jaundice, or diaphoresis. HEENT: Anterior sclerae with moist mucous membranes. NECK: Supple. CARDIOVASCULAR: Distant heart sounds. Regular rate and rhythm with an S3 gallop. LUNGS: Crackles in the bilateral lung edgar, more on the right. ABDOMEN: Obese, benign. EXTREMITIES: No edema or deformity. NEURO: Intact. ASSESSMENT: 1. Sepsis secondary to bilateral pneumonia, resolved. 2. Bilateral gram-negative pneumonia, resolving. 3. Crohn disease. 4. Rheumatoid arthritis. PLAN: 1. We will hold all disease modifying antirheumatic drugs such as weekly methotrexate and daily Plaquenil since these medications could be contributing to her immunocompromised state. 2. We will continue oral sulfasalazine for patient's Crohn disease though. 3. Continue intravenous antibiotics, namely cefepime, vancomycin, azithromycin for the patient's pneumonia. 4. Order a nebulized bronchodilators in the form of albuterol and ipratropium every 4 hours on a scheduled basis. 5. We will order B-type natriuretic peptide level to assess for intravascular volume overload. 6. We will downgrade the patient status to [facility] surgical floor. 7. We will order a 2D echocardiogram. 8. We will resume home medications. 9. Mobilize physical therapy. I spent 35 minutes in care of this patient. MD KEILA Cardenas/DAINA /[id number] MTDShaina
--- NOTE | 2019-04-15 15:46 | NUR ---
RCD PT FROM ER BY BED PT IS ALERT AND ORIENTED VITALS CHECKED PT RESTING ON BED VITALS CHECKED ADMISSION ASSESSMENT AND HISTORY DONE IV PATENT BY SALINE FLUSH INSTRUCTED PT AND FAMILY REGARDING HOSPITAL POLICY AND ROUTINE BED LOW AND LOCKED CALL LIGHT IN REACH
[2019-04-15] MEDS ORDERED: SODIUM CHLORIDE 0.9% 250ML 250 ML ONE (16:23)
[2019-04-15 16:56] VITALS: BP 138/65
[2019-04-15] MEDS ORDERED: NON-FORMULARY MEDICATION (Calcium Carbonate/Vitamin D3 (Caltrate 600 W-D Tablet) 1 TAB) PO SCH (17:00)
[2019-04-15] MEDS: CHOLECALCIFEROL 1,000 UNIT TAB PO SCH (17:00)
[2019-04-15] MEDS ORDERED: NON-FORMULARY MEDICATION (Cholecalciferol (Vitamin D3) (Vitamin D3) 1 TAB) PO SCH (17:00)
[2019-04-15] MEDS: SULFASALAZINE 500 MG TAB PO SCH (17:00)
[2019-04-15] MEDS: OYST-CAL-D 500MG TABLET PO SCH (17:00)
[2019-04-15] MEDS: APIXAB 2.5 MG TABLET PO SCH (17:00)
[2019-04-15] MEDS ORDERED: ENOXAPARIN SOD INJ 40 MG/0.4 ML SYR SC SCH ×2 (17:00)
[2019-04-15 18:02] VITALS: BP_SYST 138; BP_DIAS 65; BP_DIAS 67
--- NOTE | 2019-04-15 18:21 | NUR ---
PT AND FAMILY REFUSED ELIQUIS PAGED DR ZAPIEN TO NOTIFY THAT
--- NOTE | 2019-04-15 18:50 | NUR ---
DR ZAPIEN RETURNED THE CALL HE SAID OK TO DOCUMENT IT
--- NOTE | 2019-04-15 18:51 | NUR ---
PT RESTING ON BED BED SIDE REPORT GIVEN TO ONCOMING NURSE
--- NOTE | 2019-04-15 19:15 | NUR ---
Patient received sitting up in bed. Family at bedside. AAO x 3. Patient had no complaints of pain. Respirations even and non-labored. Fall precautions implemented. Patient instructed to call for assistance when needed. Call light within reach.
[2019-04-15 20:00] VITALS: BP 145/65
--- NOTE | 2019-04-15 20:27 | Consultation ---
DATE OF CONSULTATION: Pulmonary Consultation Patient of Dr. Law, Dr. Israel Perales, and Dr. Jacob. HISTORY OF PRESENT ILLNESS: Little, 69-year-old woman seen in the emergency room on the 2nd with bronchitis, became worse with cough, fever, and chills, was admitted with diagnosis of pneumonia. She has a history of remote [place] in 2016 with multiple arrest, pulmonary emboli, history of Crohn disease, rheumatoid arthritis, DVT in the past, renal failure in the past, aspiration pneumonia, and sepsis. Continues to be hoarse. Had prolonged intubation ALLERGIES: TO HEPARIN. MEDICATIONS: Include folic acid, Plaquenil, meclizine, Megace, methotrexate, Zofran, Zyrtec, aspirin, calcium, Protonix, Zoloft, sulfasalazine, tramadol, and tizanidine. 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 FAMILY HISTORY: Positive for diabetes. PAST SURGICAL HISTORY: She has had PEG in the past, C-sections, gallbladder surgery, and appendectomy. PHYSICAL EXAMINATION: GENERAL: Well-developed white female, looking her stated age. HEAD: Normocephalic and atraumatic. EYES: Extraocular movements intact. LUNGS: Rhonchi bilaterally, right greater than left. HEART: Regular rhythm. ABDOMEN: Nontender. EXTREMITIES: Nonedematous. IMPRESSION: Atypical pneumonia versus aspiration . RECOMMEND: Anaerobic cover, speech therapy evaluation. The patient is comfortable on room air at this time. White count is 12.8 and hemoglobin 9.9. Begin Lovenox in view of her history of pulmonary embolus in the past and immobile state. Thank you for this kind referral. MD MANJULA Hernandez/MODL /[id number]
[2019-04-15] MEDS: TIZANIDINE HCL 4 MG TAB PO SCH (20:41)
[2019-04-15] MEDS: ACETAMINOPHEN 325 MG TAB PO PRN (20:42)
[2019-04-15 21:00] VITALS: BP 145/65
[2019-04-16] VITALS (8 sets, daily range): BP systolic 101–136; BP diastolic 54–73
--- NOTE | 2019-04-16 02:05 | NUR ---
IV infiltrated on right arm . Old IV removed with tip intact. New IV inserted in left hand 20G. Patient tolerated well.
[2019-04-16] MEDS: VANCOMYCIN 1GM/NS 250 ML 250 ML IV SCH ×2 (02:45→15:00)
[2019-04-16] MEDS: ALBUTEROL/IPRATROPIUM 3 ML NEB NEB SCH ×6 (03:00→23:00)
[2019-04-16] MEDS: CEFEPIME 1GM/NS 0.9% 50 ML 50 ML IV SCH ×2 (05:30→17:06)
[2019-04-16 05:37] LABS: BASOPHILS % 0.4 % (0.0-1.0); EOSINOPHILS # (AUTO) 0.3 (0.0-0.4); HEMATOCRIT 31.7 % (34.2-44.1); HEMOGLOBIN 9.9 g/dL (12.0-16.0); LYMPHOCYTES # (AUTO) 2.8 (1.0-3.2); LYMPHOCYTES % 30.1 % (18.0-39.1); MEAN CORPUSCULAR HEMOGLOBIN 30.7 pg (28-32); MEAN CORPUSCULAR HGB CONC 31.2 g/dL (31-35); MEAN CORPUSCULAR VOLUME 98.4 fL (81-99); MONOCYTES # (AUTO) 0.5 (0.2-0.8); MONOCYTES % 5.6 % (4.4-11.3); NEUTROPHILS # (AUTO) 5.5 (2.1-6.9); NEUTROPHILS % 59.4 % (38.7-80.0); PLATELET COUNT 227 x10e3/uL (140-360); RED BLOOD COUNT 3.22 x10e6/uL (3.6-5.1); RED CELL DISTRIBUTION WIDTH 15.6 % (11.7-14.4)
[2019-04-16 06:10] LABS: ANION GAP 9.8 mmol/L (8-16); BLOOD UREA NITROGEN 12 mg/dL (7-26); BUN/CREATININE RATIO 15 (6-25); CALCIUM 8.3 mg/dL (8.4-10.2); CARBON DIOXIDE 21 mmol/L (22-29); CHLORIDE 113 mmol/L (98-107); CREATININE, SERUM 0.82 mg/dL (0.57-1.11); EST GLOMERULAR FILTRATION RATE > 60 ML/MIN (60-); GLUCOSE 81 mg/dL (74-118); POTASSIUM 3.8 mmol/L (3.5-5.1); SODIUM 140 mmol/L (136-145)
--- NOTE | 2019-04-16 06:45 | NUR ---
Patient resting comfortably. Bed- side report given to oncoming nurse.
--- NOTE | 2019-04-16 07:00 | NUR ---
Patient lying in bed with eyes open. Respiration even and unlabored without SOB. Call light in reach.
[2019-04-16] MEDS ORDERED: NON-FORMULARY MEDICATION (Sertraline Hcl 25 MG) PO SCH (09:00)
[2019-04-16] MEDS: ASPIRIN 81 MG CHEW TAB PO SCH (09:00)
[2019-04-16] MEDS: AZITHROMYCIN 500MG/SOD CHL 0.9% 250ML BAG IV SCH (09:35)
[2019-04-16] MEDS: SULFASALAZINE 500 MG TAB PO SCH ×2 (09:36→17:07)
[2019-04-16] MEDS: APIXAB 2.5 MG TABLET PO SCH ×3 (09:36→17:07)
[2019-04-16] MEDS: SERTRALINE HCL 50 MG TAB PO SCH (09:38)
[2019-04-16] MEDS: OYST-CAL-D 500MG TABLET PO SCH ×2 (09:38→17:07)
[2019-04-16] MEDS: PANTOPRAZOLE SOD 40 MG TABEC PO SCH (09:38)
[2019-04-16] MEDS: CHOLECALCIFEROL 1,000 UNIT TAB PO SCH ×2 (09:38→17:07)
--- NOTE | 2019-04-16 09:43 | Diagnostic Imaging Report ---
EXAMINATION: CHEST SINGLE (PORTABLE) INDICATION: Pneumonia COMPARISON: Chest radiograph 04/14/2019, chest CT 04/14/2019 FINDINGS: LINES/TUBES:EKG leads overlie the chest. LUNGS:The lungs are moderately inflated. Mild bibasilar patchy opacities. PLEURA:No pleural effusion or pneumothorax. MEDIASTINUM:The cardiomediastinal silhouette appears normal in size and shape. BONES/SOFT TISSUES:No acute osseous injury. ABDOMEN:No free air under the diaphragm. IMPRESSION: Mild bibasilar patchy opacities correspond with areas of consolidation seen on the chest CT of 04/14/2019, consistent with multifocal aspiration or pneumonia in the proper clinical setting. Signed by: Mini Nunez MD on 04/16/2019 9:40 AM
--- NOTE | 2019-04-16 13:52 | NUR ---
Discontinuing PT services since patient is Mod I in functional mobility. Thank you. Addendum: 04/16/19 at 1353 by Robert oconnell PT Amended: Links added.
[2019-04-16] MEDS: ACETAMINOPHEN 325 MG TAB PO PRN (15:35)
--- NOTE | 2019-04-16 19:10 | NUR ---
Report given to business process associate. Respiration even and unlabored without SOB. Call light in reach.
--- NOTE | 2019-04-16 19:15 | NUR ---
Received patient awake in bed, not in distress, at bedside, call light within easy reach, advised to call for assistance anytime when needed, will continue to monitor
[2019-04-16] MEDS: TIZANIDINE HCL 4 MG TAB PO SCH (21:46)
[2019-04-17] VITALS (8 sets, daily range): BP systolic 104–163; BP diastolic 47–70
[2019-04-17] MEDS: ALBUTEROL/IPRATROPIUM 3 ML NEB NEB SCH ×5 (01:45→19:00)
--- NOTE | 2019-04-17 02:20 | NUR ---
Called off site pharmacy to adjust the Vanc IV timing, per pharmacist recommendation, give it at 0300, no need to check Vanc trough before the 3AM dose, wait for MD to order next Vanc trough.
[2019-04-17] MEDS: VANCOMYCIN 1GM/NS 250 ML 250 ML IV SCH (02:52)
[2019-04-17] MEDS: CEFEPIME 1GM/NS 0.9% 50 ML 50 ML IV SCH (05:12)
--- NOTE | 2019-04-17 07:11 | NUR ---
Bedside rounding done, call light within reach, at bedside
[2019-04-17] MEDS: AZITHROMYCIN 500MG/SOD CHL 0.9% 250ML BAG IV SCH (09:00)
[2019-04-17] MEDS: OYST-CAL-D 500MG TABLET PO SCH ×2 (10:20→18:19)
[2019-04-17] MEDS: ASPIRIN 81 MG CHEW TAB PO SCH (10:20)
[2019-04-17] MEDS: PANTOPRAZOLE SOD 40 MG TABEC PO SCH (10:20)
[2019-04-17] MEDS: SULFASALAZINE 500 MG TAB PO SCH ×2 (10:20→18:19)
[2019-04-17] MEDS: SERTRALINE HCL 50 MG TAB PO SCH (10:20)
[2019-04-17] MEDS: CHOLECALCIFEROL 1,000 UNIT TAB PO SCH ×2 (10:20→18:19)
--- NOTE | 2019-04-17 10:37 | Diagnostic Imaging Report ---
EXAM: MODIFIED BA. SWALLOW DATE: 04/17/2019 12:00 AM INDICATION: Pneumonia COMPARISON: None Fluoroscopy Time: 1.6 min. Reference Air Kerma (Ka, r): 6.98 mGy. FINDINGS/IMPRESSION: Modified barium swallow was performed by the speech pathology department. The radiologist was not present for the examination. Provided images demonstrate no evidence for subglottic tracheal aspiration. Please refer to speech pathology report for further details. Signed by: Dr. Thomas Paige MD on 04/17/2019 10:34 AM
--- NOTE | 2019-04-17 15:40 | NUR ---
Notified Dr. Perales of [facility] level 18.1 New orders received
--- NOTE | 2019-04-17 15:40 | NUR ---
Dr. Perales notified of two nurses attempting to start new IV access with ultrasound machine with no success and also positive MRSA result. Orders received to consult Dr. Olson and see if patient will continue to need IV antibiotics or if can be switched to PO
--- NOTE | 2019-04-17 16:05 | NUR ---
consult [id number] MEDICAL HISTORY: 1. Chronic systolic/diastolic congestive heart failure. 2. Coronary artery disease (coronary stent placed in October 2015). 3. History of lower extremity deep venous thrombosis. 4. History of pulmonary embolism. 5. Crohn disease. 6. Mild obesity. 7. Anemia secondary to chronic disease. 8. Hypertensive heart disease. 9. Rheumatoid arthritis. 10. Depression. 11. GERD. PAST SURGICAL HISTORY: 1. section twice. 2. Appendectomy. 3. IVC filter placement in April 2016. 4. Coronary artery stent placement in October 2015. 5. PEG tube placement and removal. FAMILY HISTORY: Father had chronic bronchitis and congestive heart failure. ALLERGIES: 1. PLASTIC TAPE. 2. HEPARIN. SOCIAL HISTORY: This woman is , lives with her . No history of tobacco or alcohol use. HOME MEDICATIONS: 1. Aspirin 81 mg daily. 2. Levofloxacin 500 mg daily for 5 days (she just finished this medication). 3. Calcium carbonate with vitamin D 1 pill twice daily. 4. Zyrtec 10 mg at bedtime. 5. Vitamin D3 of 2000 units daily. 6. Folic acid 1 mg daily. 7. Plaquenil 200 mg at bedtime. 8. Lorazepam 0.25 mg every 6 hours p.r.n. anxiety. 9. Meclizine 25 mg b.i.d. 10. Megace 120 mg daily. 11. Methotrexate 17.5 mg once a week. 12. Metoprolol succinate 25 mg daily. 13. Ondansetron 4 mg every 6 hours p.r.n. nausea and vomiting. 14. Pantoprazole 40 mg daily. 15. Sertraline 25 mg daily. 16. Sulfasalazine 1000 mg b.i.d. 17. Tizanidine 2 mg at bedtime. 18. Tramadol 50 mg q.6h. PHYSICAL EXAMINATION: GENERAL: She is awake. She is alert. She is fully oriented. Her and adult daughter are bedside. She does not appear to be in any respiratory distress, but she does look slightly ill. VITAL SIGNS: Her temperature is 101.5, heart rate is 104, respiratory rate is 22, oxygen saturation 91% on room air, it is 100% on 2 L oxygen; blood pressure is 118/46. Height is 5 feet 1 inch, weight is 170 pounds, BMI 32. INTEGUMENT: Skin is warm and dry. No pallor, jaundice, or diaphoresis. HEENT: Anicteric sclerae. Moist mucous membranes. NECK: Supple. No evidence of jugular venous distention. CARDIOVASCULAR: Distant heart sounds. Tachycardic rate. Regular rhythm. The patient has S3 gallop. LUNGS: The patient has diminished breath sounds at the bases, particularly on the right. ABDOMEN: Obese, benign. EXTREMITIES: The patient has trace edema in the right lower leg with tenderness on palpating the posterior right lower leg area. NEUROLOGIC: Intact.
--- NOTE | 2019-04-17 17:00 | NUR ---
Per Dr. Olson he will change patient to PO antibiotics and no need for a line at this time.
[2019-04-17] MEDS: LINEZOLID 600 MG TAB PO SCH (18:19)
--- NOTE | 2019-04-17 19:25 | NUR ---
BEDSIDE SHIFT REPORT RECEIVED. PATIENT IS RESTING IN BED, RESP EVEN AND UNLABORED. NO ACUTE DISTRESS NOTED. EDUCATED PT ABOUT FALL PRECAUTIONS. PT VERBALIZED UNDERSTANDING. CALL LIGHT WITH IN EASY REACH. INSTRUCTED PT TO USE CALL LIGHT FOR ALL THE NEEDS. BED IS LOW AND LOCKED. SIDE RAILS X2. BED ALARM IS ON. FAMILY AT BED SIDE. PT DENIES NEEDS AT THIS TIME. CONTINUE TO MONITOR CLOSELY
[2019-04-17] MEDS: TIZANIDINE HCL 4 MG TAB PO SCH (21:18)
[2019-04-17] MEDS: ACETAMINOPHEN 325 MG TAB PO PRN (21:19)
[2019-04-18] VITALS: BP 103/53
--- NOTE | 2019-04-18 00:24 | Consultation ---
DATE OF CONSULTATION: REASON FOR CONSULTATION: Pneumonia with Staph aureus. HISTORY OF PRESENT ILLNESS: This patient is a very pleasant 69-year-old female, who comes into the emergency room with shortness of breath and cough. She had this for 2 weeks. When she came here, she had congestion. She was seen at [facility] on April 08, was prescribed 5 days of levofloxacin. She was getting better originally, but started to get worse again with shortness of breath and cough, came to the emergency room. In the emergency room, her white count was 20,000 with hemoglobin of 11. The patient was admitted. When she first came, she was having fever, chills, cough, shortness of breath, although these resolved at the present time. PAST MEDICAL HISTORY: The patient does have underlying history of chronic congestive heart failure, coronary artery disease, stent placed in October 2015, history of DVT, history of pulmonary embolism, history of Crohn disease, obesity, anemia of chronic disease, rheumatoid arthritis, depression, GERD. PAST SURGICAL HISTORY: twice, appendectomy, IVC filter placed in April 2016, coronary artery stent placement in October 2015, PEG tube placement and removal. ALLERGIES: PLASTIC TAPE. SOCIAL HISTORY: There is no smoking, drug abuse, or alcohol abuse. FAMILY HISTORY: Chronic bronchitis. HOME MEDICATIONS: She was on Levaquin, aspirin, zyrtec, vitamin D, Plaquenil, meclizine, megace, tramadol. The patient came here, her sputum culture showing MRSA. Gram stain showed many gram-positive cocci, a few gram-negative rods. The MRSA sensitive to only vancomycin and rifampin, linezolid, and daptomycin. MEDICATIONS: Currently, she is on aspirin, cefepime, vancomycin, and also azithromycin. LABORATORY DATA: The patient had a chest CT on May 03, which showed multifocal pneumonia. The patient's blood cultures have been negative. PHYSICAL EXAMINATION: GENERAL: She is currently alert, oriented, does not seem to be in acute distress. VITAL SIGNS: Stable, afebrile, temperature 99.8, she had T-max yesterday 101.1. HEENT: She is not icteric. NECK: Supple. CHEST: Few rhonchi. COR: S1 and S2. No murmurs. ABDOMEN: Soft. Bowel sounds present. No tenderness. EXTREMITIES: No edema. IMPRESSION: 1. Community-acquired pneumonia, severe, and methicillin-resistant Staphylococcus aureus, currently on vancomycin. Can discontinue azithromycin. Can discontinue cefepime. I would recommend to check chest x-ray. Follow up the CAT scan to total resolution. Follow up vancomycin trough. Plan on 14 days of antibiotic. I would like to see significant improvement before we switch her to oral Zyvox. 2. Other medical problems as above. Discussed with the patient. Discussed with medical team. MD ANNA Mccall/BROOKSL /[id number]
[2019-04-18 04:00] VITALS: BP 128/62
[2019-04-18 05:42] LABS: BASOPHILS # (AUTO) 0.1 (0.0-0.1); BASOPHILS % 0.8 % (0.0-1.0); EOSINOPHILS # (AUTO) 0.4 (0.0-0.4); EOSINOPHILS % 5.8 % (0.0-6.0); HEMATOCRIT 30.7 % (34.2-44.1); HEMOGLOBIN 9.8 g/dL (12.0-16.0); LYMPHOCYTES # (AUTO) 1.6 (1.0-3.2); LYMPHOCYTES % 26.9 % (18.0-39.1); MEAN CORPUSCULAR HEMOGLOBIN 30.8 pg (28-32); MEAN CORPUSCULAR HGB CONC 31.9 g/dL (31-35); MEAN CORPUSCULAR VOLUME 96.5 fL (81-99); MONOCYTES # (AUTO) 0.9 (0.2-0.8); MONOCYTES % 14.7 % (4.4-11.3); NEUTROPHILS % 49.2 % (38.7-80.0); PLATELET COUNT 226 x10e3/uL (140-360); RED BLOOD COUNT 3.18 x10e6/uL (3.6-5.1); RED CELL DISTRIBUTION WIDTH 15.5 % (11.7-14.4)
[2019-04-18 06:03] LABS: ANION GAP 9.5 mmol/L (8-16); BLOOD UREA NITROGEN 7 mg/dL (7-26); BUN/CREATININE RATIO 9 (6-25); CALCIUM 8.6 mg/dL (8.4-10.2); CARBON DIOXIDE 24 mmol/L (22-29); CHLORIDE 111 mmol/L (98-107); EST GLOMERULAR FILTRATION RATE > 60 ML/MIN (60-); GLUCOSE 88 mg/dL (74-118); POTASSIUM 3.5 mmol/L (3.5-5.1); SODIUM 141 mmol/L (136-145)
--- NOTE | 2019-04-18 07:10 | NUR ---
Received patient lying in bed with eyes open. Respiration even and unlabored without SOB. Call light in reach.
[2019-04-18 07:55] VITALS: BP 130/60
[2019-04-18 08:38] VITALS: BP 130/60
[2019-04-18] MEDS: ASPIRIN 81 MG CHEW TAB PO SCH (08:51)
[2019-04-18] MEDS: OYST-CAL-D 500MG TABLET PO SCH (08:52)
[2019-04-18] MEDS: CHOLECALCIFEROL 1,000 UNIT TAB PO SCH (08:52)
[2019-04-18] MEDS: PANTOPRAZOLE SOD 40 MG TABEC PO SCH (08:52)
[2019-04-18] MEDS: LINEZOLID 600 MG TAB PO SCH (08:53)
[2019-04-18] MEDS: AZITHROMYCIN 500MG/SOD CHL 0.9% 250ML BAG IV SCH (09:00)
[2019-04-18] MEDS: SULFASALAZINE 500 MG TAB PO SCH (09:00)
[2019-04-18] MEDS: SERTRALINE HCL 50 MG TAB PO SCH (09:00)
--- NOTE | 2019-04-18 09:00 | NUR ---
Educated patient about the importance of thickened liquid recommendation to prevent aspiration. Patient states she does not like to drink thickened liquid and insisted to drink thin liquids.
[2019-04-18 09:10] LABS: EOSINOPHILS % (MANUAL) 5 % (0-7); LYMPHOCYTES % (MANUAL) 41 % (19-48); MONOCYTES % (MANUAL) 8 % (3.4-9.0); NEUTROPHILS % (MANUAL) 46 % (40-74); PLATELET ESTIMATE ADEQUATE; PLATELET MORPHOLOGY COMMENT NORMAL; RBC MORPHOLOGY COMMENT NORMAL
[2019-04-18 12:00] VITALS: BP 111/59
--- NOTE | 2019-04-18 14:34 | NUR ---
Patient is transported for radiology at this time.
--- NOTE | 2019-04-18 15:21 | NUR ---
Patient is to discharge home today. Currently have no IV access. Discharge teaching provided regarding aspiration with educational reading materials given, verbalized understanding. Transported patient via wheelchair to private vehicle with all personal belongings. Respiration even and unlabored. Denies SOB.
--- NOTE | 2019-04-18 15:46 | Diagnostic Imaging Report ---
EXAMINATION: CHEST 2 VIEWS INDICATION: Pneumonia COMPARISON: Chest radiograph 04/16/2019, chest CT 04/14/2019 FINDINGS: LINES/TUBES:None LUNGS:Unchanged mild multifocal patchy opacities bilaterally. PLEURA:No pleural effusion or pneumothorax. MEDIASTINUM:The cardiomediastinal silhouette appears unchanged in size and shape. BONES/SOFT TISSUES:No acute osseous injury. ABDOMEN:No free air under the diaphragm. IMPRESSION: Unchanged mild bilateral multifocal patchy opacities, compatible with aspiration and/or atypical infection in the proper clinical setting. Signed by: Mini Nunez MD on 04/18/2019 3:43 PM
[2019-04-18] MEDS ORDERED: ZYVOX600 MG PO ×2 (16:59→17:01)
[2019-04-18] MEDS ORDERED: VANCOMYCIN 1GM/NS 250 ML 250 ML IV SCH (17:00)
== END 2019-04-18 17:21 | disposition home or self-care (01) | DRG 871 ==
LOC: ER 10:57 → ERHOLD 13:16 → MED/SURG2 04-15 15:50
DX: A41.9 Sepsis, unspecified organism (principal); J15.212 Pneumonia due to Methicillin resistant Staphylococcus aureus; I50.43 Acute on chronic combined systolic (congestive) and diastolic (congestive) heart failure; J96.00 Acute respiratory failure, unspecified whether with hypoxia or hypercapnia; J69.0 Pneumonitis due to inhalation of food and vomit; K50.90 Crohn's disease, unspecified, without complications; I13.0 Hypertensive heart and chronic kidney disease with heart failure and stage 1 through stage 4 chronic kidney disease, or unspecified chronic kidney disease; I25.10 Atherosclerotic heart disease of native coronary artery without angina pectoris; M06.9 Rheumatoid arthritis, unspecified; Z68.32 Body mass index [BMI] 32.0-32.9, adult; R09.02 Hypoxemia; Z88.8 Allergy status to other drugs, medicaments and biological substances; Z91.048 Other nonmedicinal substance allergy status; Z87.440 Personal history of urinary (tract) infections; I25.2 Old myocardial infarction; Z99.2 Dependence on renal dialysis; E78.5 Hyperlipidemia, unspecified; Z86.718 Personal history of other venous thrombosis and embolism; Z79.899 Other long term (current) drug therapy; R13.12 Dysphagia, oropharyngeal phase; Z86.711 Personal history of pulmonary embolism; E66.9 Obesity, unspecified; D63.8 Anemia in other chronic diseases classified elsewhere; N18.9 Chronic kidney disease, unspecified
CPT/HCPCS: 36415; 71045; 71046; 71260; 74230; 80048; 80053; 80202; 82550; 82553; 83605; 83880; 84484; 85025; 85610; 85730; 87040; 87070; 87186; 87205; 87400; 93005; 93306; 93971; 94640; 97139; 99284; J0456; J0692; J0696; J2405; J2543; J3370; J7030; J7050; Q9967

== ENCOUNTER 2019-05-07 10:10 | Outpatient (RCR) | payer MEDICARE ==
--- NOTE | 2019-04-27 12:35 | NUR ---
Clinical Swallow Evaluation/Initial Treatment Session Patient is a 69 year old female with diagnosis of dysphagia and pneumonia. Pt participated in a modified barium swallow study on 04/17/19. Pt presented with mild to moderate pharyngeal dysphagia c/b consistent premature spillage over the base of tongue, SILENT and overt aspiration of thin liquids, and consistent pharyngeal residue after the swallow. Dysphagia judged to be secondary to decreased hyolaryngeal excursion, decreased coordination of the swallow, and decreased laryngeal closure. Recommendation was made for dysphagia therapy to increase strength and coordination of swallow. Patient was seen today in the outpatient clinic for initial treatment of Neuromuscular Electrical Stimulation (NMES) with VitalStim Therapy and traditional dysphagia therapy with pharyngeal exercises. Pt was seen with daughter present. Oral motor exam revealed function that was grossly within normal limits. Patient tolerated room air. Hearing appeared to be WFL. Patient reported she is now using thickener in her liquids so that she doesnt get choked. Pt confirmed that she continues to choke and cough intermittently during meal times, but less so with thickened liquids. Provided extensive education re: need for therapy, purpose of exercises and NMES, and future plan of care. Pt indicated understanding. Pt was given water, thick puree, and hard candy. Pt was instructed to take small bites/sips and swallow hard, feeling all the muscles in her throat contract. Placement 3b was used to target the mylohyoid muscle, the anterior belly of the digastric muscle, the sternohyoid muscle, the omohyoid muscle, the geniohyoid muscle, and the middle pharyngeal constrictors. Channel 1 of the electrodes was aligned horizontally just above the hyoid bone and channel 2 of the electrodes was aligned horizontally at the level of the thyroid notch. This placement was used to improve base of tongue strength, pharyngeal constriction, and UES function. Pt initially tolerated 5.0 mA, but as the session progressed pt tolerated 8.5 mA. Pt received 45 minutes of stimulation. Cough noted X 4, throat clear X 1, runny nose X 1. During NMES an exercise program was presented, demonstrated, and discussed. Pt completed the exercises with no assistance. A home program was assigned. Pt verbalized understanding of the home exercise program. Education provided as indicated. All questions were answered. Impressions: Pt tolerated initial session of NMES well. She continues to report and demonstrate s/s of aspiration during meals which significantly interferes with her quality of life. Pt is an excellent candidate for dysphagia exercises and NMES for improvement of strength and coordination of swallow. Recommendations: 1.Dysphagia therapy to include traditional exercises and NMES 3X/week for 4 weeks for a total of 12 treatment sessions 2.Home exercise program 3.Repeat MBS in 4 weeks with new goals to be determined at that time. Prison Goal: Pt will tolerate least restrictive diet without s/s of aspiration as judged by an objective evaluation. Short Term Goals: 1.Pt will complete 3 repetitions of a set of dysphagia exercises to improve laryngeal elevation, base of tongue retraction, and laryngeal closure, 10 repetitions per exercise, with minimal cues. 2.Pt will tolerate NMES for 45 60 minutes with no clinical s/s of aspiration to improve strength of pharyngeal constrictors, hyolaryngeal excursion, and safety with po intake. 3.Pt will complete home dysphagia exercise program targeting laryngeal elevation, base of tongue strength, and cricopharyngeal function independently. 4.Pt will follow aspiration precautions with independence. 5.Pt will participate in a repeat Modified Barium Swallow study to objectively re-assess swallow safety and function and determine safest diet. Cecilia Smith M.A. CCC-[employer]NERSH[employer] REPRESENTATIVE Date of Session: 04/27/19 Dysphagia Evaluation X 64 minutes [facility] NOMS Rating for Swallowing: Level 5
[~2019-05-07 10:10] MED LIST changes: +ZYVOX600 MG PO
== END 2019-05-08 ==
LOC: ST 10:10
DX: R13.13 Dysphagia, pharyngeal phase (principal); J18.9 Pneumonia, unspecified organism

== ENCOUNTER 2019-06-06 10:58 | Outpatient (RCR) | payer MEDICARE ==
--- NOTE | 2019-05-25 11:29 | NUR ---
Clinical Swallow Re-Evaluation/Treatment Session Patient is a 69 year old female with diagnosis of dysphagia and pneumonia. Pt participated in a modified barium swallow study on 04/17/19. Pt presented with mild to moderate pharyngeal dysphagia c/b consistent premature spillage over the base of tongue, SILENT and overt aspiration of thin liquids, and consistent pharyngeal residue after the swallow. Dysphagia judged to be secondary to decreased hyolaryngeal excursion, decreased coordination of the swallow, and decreased laryngeal closure. Recommendation was made for dysphagia therapy to increase strength and coordination of swallow. Patient was seen today in the outpatient clinic for initial treatment of Neuromuscular Electrical Stimulation (NMES) with VitalStim Therapy and traditional dysphagia therapy with pharyngeal exercises. Pt was seen with no family present. Oral motor exam revealed function that was grossly within normal limits. Patient tolerated room air. Hearing appeared to be WFL. Patient reported she is now using thickener in her liquids so that she doesnt get choked. Pt confirmed that she continues to choke and cough intermittently during meal times, but less so with thickened liquids. Provided extensive education re: need for therapy, purpose of exercises and NMES, and future plan of care. Pt indicated understanding. Pt was given water. Pt was instructed to take small sips and swallow hard, feeling all the muscles in her throat contract. Placement 3b was used to target the mylohyoid muscle, the anterior belly of the digastric muscle, the sternohyoid muscle, the omohyoid muscle, the geniohyoid muscle, and the middle pharyngeal constrictors. Channel 1 of the electrodes was aligned horizontally just above the hyoid bone and channel 2 of the electrodes was aligned horizontally at the level of the thyroid notch. This placement was used to improve base of tongue strength, pharyngeal constriction, and UES function. Pt initially tolerated 5.5 mA, but as the session progressed pt tolerated 16.5 mA. Pt received 45 minutes of stimulation. Cough noted X 1, throat clear X 0, runny nose X 0. During NMES an exercise program was presented, demonstrated, and discussed. Pt completed the exercises with no assistance. A home program was assigned. Pt verbalized understanding of the home exercise program. Education provided as indicated. All questions were answered. Impressions: Pt tolerated session of NMES well. She continues to report and demonstrate s/s of aspiration during meals which significantly interferes with her quality of life. Pt is an excellent candidate for dysphagia exercises and NMES for improvement of strength and coordination of swallow. Pt has shown improvement with her swallow over the last 12 sessions of NMES, she continues to cough with thin liquids. Recommendations: 1. Dysphagia therapy to include traditional exercises and NMES 3X/week for 2 weeks for a total of 8 additional treatment sessions 2. Home exercise program 3. Repeat MBS in 2 weeks as allowed by outpatient radiology with new goals to be determined at that time. Water Soft[employer] Service Supervisor Goal: Pt will tolerate least restrictive diet without s/s of aspiration as judged by an objective evaluation. Short Term Goals: 1. Pt will complete 3 repetitions of a set of dysphagia exercises to improve laryngeal elevation, base of tongue retraction, and laryngeal closure, 10 repetitions per exercise, with minimal cues. 2. Pt will tolerate NMES for 45 60 minutes with no clinical s/s of aspiration to improve strength of pharyngeal constrictors, hyolaryngeal excursion, and safety with po intake. 3. Pt will complete home dysphagia exercise program targeting laryngeal elevation, base of tongue strength, and cricopharyngeal function independently. 4. Pt will follow aspiration precautions with independence. 5. Pt will participate in a repeat Modified Barium Swallow study to objectively re-assess swallow safety and function and determine safest diet. Ardi Ding M.S. CCC-[employer] EXPORT COORDINATOR Date of Session: 05/25/19 Dysphagia Re-Evaluation and Treatment Session X 60 minutes [facility] NOMS Rating for Swallowing: Level 5 MD signature date
== END 2019-06-07 ==
LOC: ST 10:58
DX: R13.13 Dysphagia, pharyngeal phase (principal); Z87.01 Personal history of pneumonia (recurrent)

== ENCOUNTER 2019-06-08 10:26 | Outpatient (RCR) | payer MEDICARE ==
--- NOTE | 2019-06-11 11:58 | Diagnostic Imaging Report ---
PROCEDURE: X-RAY MODIFIED BARIUM SWALLOW COMPARISON: None. INDICATION: Dysphagia Radiation Details: Fluoroscopy time: 1.7 minutes Cumulative dose: 0.4 mGy DISCUSSION: Fluoroscopic examination was performed in conjunction with speech pathology during swallowing a variety of thin and thick liquid consistencies. Provided images demonstrate laryngeal penetration and aspiration. CONCLUSION: Modified barium swallow demonstrating laryngeal penetration and aspiration. Please refer to the speech pathology report for further details. Signed by: Mini Nunez MD on 06/11/2019 11:55 AM
== END 2019-07-08 ==
LOC: ST 10:26
DX: R13.13 Dysphagia, pharyngeal phase (principal)
CPT/HCPCS: 74230

== ENCOUNTER 2021-07-16 14:44 | Inpatient (IN) | payer MEDICARE ==
[~2021-07-16] VITALS: Ht 154.9 cm; Wt 77.1 kg
[2021-07-16 15:07] LABS: BASOPHILS # (AUTO) 0.1 (0.0-0.1); BASOPHILS % 0.4 % (0.0-1.0); EOSINOPHILS % 0.2 % (0.0-6.0); HEMATOCRIT 43.1 % (34.2-44.1); HEMOGLOBIN 13.3 g/dL (12.0-16.0); MEAN CORPUSCULAR HEMOGLOBIN 30.8 pg (28-32); MEAN CORPUSCULAR HGB CONC 30.9 g/dL (31-35); MEAN CORPUSCULAR VOLUME 99.8 fL (81-99); MONOCYTES # (AUTO) 1.3 (0.2-0.8); MONOCYTES % 10.2 % (4.4-11.3); NEUTROPHILS # (AUTO) 8.5 (2.1-6.9); NEUTROPHILS % 65.4 % (38.7-80.0); PLATELET COUNT 241 x10e3/uL (140-360); RED BLOOD COUNT 4.32 x10e6/uL (3.6-5.1); RED CELL DISTRIBUTION WIDTH 15.8 % (11.7-14.4)
[2021-07-16 15:09] LABS: CLARITY,URINE SL CLOUDY (CLEAR); COLOR,URINE AMBER (YELLOW); KETONES,URINE TRACE (NEGATIVE); LEUKOCYTE ESTERASE ,URINE NEGATIVE (NEGATIVE); NITRITE,URINE NEGATIVE (NEGATIVE); PROTEIN,URINE DIPSTICK 2+ (NEGATIVE); URINE UROBILINOGEN 1 mg/dL (0.2 - 1)
[2021-07-16] MEDS ORDERED: ONDANSETRON HCL INJ 2MG/ML 2ML 2 MG/ML VIAL IV STA (15:10)
[2021-07-16 15:18] LABS: AMORPHOUS SEDIMENT,URINE MODERATE (FEW); BACTERIA,URINE FEW /HPF; EPITHELIAL CELLS,URINE MODERATE /LPF; HYALINE CASTS 0-1 (0-1); MUCUS,URINE FEW (RARE)
[2021-07-16] MEDS ORDERED: SODIUM CHLORIDE 0.9% 1000ML 1,000 ML IV ONE ×2 (15:30→17:15)
[2021-07-16 15:57] LABS: ALBUMIN 3.6 g/dL (3.5-5.0); ALBUMIN/GLOBULIN RATIO 0.8 (0.8-2.0); ANION GAP 17.8 mmol/L (8-16); CREATININE, SERUM 1.2 mg/dL (0.57-1.11); POTASSIUM 3.8 mmol/L (3.5-5.1)
[2021-07-16] MEDS ORDERED: IOPAMIDOL 370 MG/ML 100 ML INFUS..BTL INJ ONE (16:27)
[2021-07-16 18:10] VITALS: BP 150/70
[2021-07-16 20:00] VITALS: BP 159/75
[2021-07-16 21:00] VITALS: BP_SYST 150; BP_SYST 159; BP_DIAS 70; BP_DIAS 75
[2021-07-16] MEDS: Morphine 2mg Syringe 2 MG/ML SYR IV PRN (21:42)
[2021-07-16] MEDS: ONDANSETRON HCL INJ 2MG/ML 2ML 2 MG/ML VIAL IV PRN (21:42)
[2021-07-17] VITALS (8 sets, daily range): BP systolic 123–164; BP diastolic 44–63
[2021-07-17 04:57] LABS: BASOPHILS # (AUTO) 0.1 (0.0-0.1); BASOPHILS % 0.5 % (0.0-1.0); EOSINOPHILS # (AUTO) 0.1 (0.0-0.4); EOSINOPHILS % 0.7 % (0.0-6.0); HEMATOCRIT 42.4 % (34.2-44.1); HEMOGLOBIN 12.9 g/dL (12.0-16.0); LYMPHOCYTES % 29.2 % (18.0-39.1); MEAN CORPUSCULAR HEMOGLOBIN 31.2 pg (28-32); MEAN CORPUSCULAR HGB CONC 30.4 g/dL (31-35); MEAN CORPUSCULAR VOLUME 102.7 fL (81-99); MONOCYTES # (AUTO) 1.2 (0.2-0.8); MONOCYTES % 11.5 % (4.4-11.3); NEUTROPHILS # (AUTO) 5.9 (2.1-6.9); NEUTROPHILS % 57.1 % (38.7-80.0); PLATELET COUNT 187 x10e3/uL (140-360); RED BLOOD COUNT 4.13 x10e6/uL (3.6-5.1); RED CELL DISTRIBUTION WIDTH 15.4 % (11.7-14.4)
[2021-07-17 05:14] LABS: CALCIUM 8.1 mg/dL (8.4-10.2)
[2021-07-17] MEDS: DEXTROSE 5%/0.45% SOD CHL 1,000 ML IV SCH (13:49)
[2021-07-17] MEDS: ONDANSETRON HCL INJ 2MG/ML 2ML 2 MG/ML VIAL IV PRN (17:56)
[2021-07-17] MEDS: Morphine 2mg Syringe 2 MG/ML SYR IV PRN (23:45)
[2021-07-18] VITALS (9 sets, daily range): BP systolic 127–155; BP diastolic 56–73
[2021-07-18] MEDS ORDERED: METHYLPREDNISOLONE SOD SUCC 40 MG/ML VIAL 1ML IV ONE (00:15)
[2021-07-18] MEDS: DEXTROSE 5%/0.45% SOD CHL 1,000 ML IV SCH ×3 (00:23→20:39)
[2021-07-18] MEDS: METHYLPREDNISOLONE SOD SUCC 40 MG/ML VIAL 1ML IV SCH ×3 (06:13→18:15)
[2021-07-18 06:33] LABS: BASOPHILS % 0.2 % (0.0-1.0); HEMATOCRIT 36.7 % (34.2-44.1); HEMOGLOBIN 11.3 g/dL (12.0-16.0); LYMPHOCYTES # (AUTO) 0.8 (1.0-3.2); LYMPHOCYTES % 10.3 % (18.0-39.1); MEAN CORPUSCULAR HEMOGLOBIN 30.9 pg (28-32); MEAN CORPUSCULAR HGB CONC 30.8 g/dL (31-35); MEAN CORPUSCULAR VOLUME 100.3 fL (81-99); MONOCYTES # (AUTO) 0.2 (0.2-0.8); MONOCYTES % 2.2 % (4.4-11.3); NEUTROPHILS # (AUTO) 6.9 (2.1-6.9); NEUTROPHILS % 86.3 % (38.7-80.0); PLATELET COUNT 193 x10e3/uL (140-360); RED BLOOD COUNT 3.66 x10e6/uL (3.6-5.1); RED CELL DISTRIBUTION WIDTH 14.9 % (11.7-14.4)
[2021-07-18 06:54] LABS: ANION GAP 11.9 mmol/L (8-16); CREATININE, SERUM 0.84 mg/dL (0.57-1.11); POTASSIUM 3.9 mmol/L (3.5-5.1)
[2021-07-18] MEDS: BISACODYL 10 MG SUPP PR SCH (20:53)
[2021-07-19] VITALS (7 sets, daily range): BP systolic 108–165; BP diastolic 53–79
[2021-07-19] MEDS: METHYLPREDNISOLONE SOD SUCC 40 MG/ML VIAL 1ML IV SCH ×5 (00:30→23:12)
[2021-07-19] MEDS: DEXTROSE 5%/0.45% SOD CHL 1,000 ML IV SCH ×2 (05:39→18:05)
[2021-07-19] MEDS: BISACODYL 10 MG SUPP PR SCH (09:29)
[2021-07-20] VITALS (8 sets, daily range): BP systolic 105–177; BP diastolic 55–90
[2021-07-20] MEDS: DEXTROSE 5%/0.45% SOD CHL 1,000 ML IV SCH ×2 (03:30→12:18)
[2021-07-20] MEDS: METHYLPREDNISOLONE SOD SUCC 40 MG/ML VIAL 1ML IV SCH ×3 (05:28→17:10)
[2021-07-21] VITALS (7 sets, daily range): BP systolic 141–178; BP diastolic 51–89
[2021-07-21] MEDS: METHYLPREDNISOLONE SOD SUCC 40 MG/ML VIAL 1ML IV SCH ×4 (05:11→17:50)
[2021-07-22] VITALS: BP 168/71
[2021-07-22 04:00] VITALS: BP 160/64
[2021-07-22] MEDS: METHYLPREDNISOLONE SOD SUCC 40 MG/ML VIAL 1ML IV SCH ×3 (05:32→14:29)
[2021-07-22 07:58] VITALS: BP 172/70
[2021-07-22 08:00] VITALS: BP 172/70
[2021-07-22] MEDS ORDERED: ONDANSETRON HCL 4 MG ORAL DISINTEGRATING TAB PO PRN (11:30)
[2021-07-22] MEDS ORDERED: METOPROLOL SUCCINATE 25 MG TAB XL PO PRN (11:30)
[2021-07-22] MEDS ORDERED: TRAMADOL HCL 50 MG TAB PO PRN (11:30)
[2021-07-22] MEDS ORDERED: LORAZEPAM 0.5 MG TAB PO PRN (11:30)
[2021-07-22 11:49] VITALS: BP 133/60
[2021-07-22] MEDS ORDERED: AUGMENTIN 500-1 EACH PO (14:11)
[2021-07-22] MEDS ORDERED: [UNRECOGNIZED DRUG - OTHER] (14:13)
[2021-07-22] MEDS ORDERED: HYDRALAZINE HCL25 MG PO (14:13)
[2021-07-22] MEDS ORDERED: HYDRALAZINE HCL 25 MG TAB PO SCH (15:00)
[2021-07-22] MEDS ORDERED: SULFASALAZINE 500 MG TAB PO SCH (17:00)
[2021-07-22] MEDS ORDERED: TIZANIDINE HCL 4 MG TAB PO SCH (21:00)
[2021-07-22] MEDS ORDERED: HYDROXYCHLOROQUINE SULFATE 200 MG TAB PO SCH (21:00)
[2021-07-23] MEDS ORDERED: ASPIRIN 81 MG CHEW TAB PO SCH (09:00)
[2021-07-23] MEDS ORDERED: FOLIC ACID 1 MG TAB PO SCH (09:00)
[2021-07-23] MEDS ORDERED: PANTOPRAZOLE SOD 40 MG TABEC PO SCH (09:00)
[2021-07-23] MEDS ORDERED: METHOTREXATE SOD 2.5 MG TAB PO SCH (13:00)
== END 2021-07-22 15:10 | disposition home or self-care (01) | DRG 385 ==
LOC: ER 14:48 → ERHOLD 17:09 → MED/SURG2 17:58
DX: K50.012 Crohn's disease of small intestine with intestinal obstruction (principal); U07.1 COVID-19; I25.10 Atherosclerotic heart disease of native coronary artery without angina pectoris; I12.9 Hypertensive chronic kidney disease with stage 1 through stage 4 chronic kidney disease, or unspecified chronic kidney disease; N18.30 Chronic kidney disease, stage 3 unspecified; E78.5 Hyperlipidemia, unspecified; M06.9 Rheumatoid arthritis, unspecified; Z86.711 Personal history of pulmonary embolism; Z88.8 Allergy status to other drugs, medicaments and biological substances; Z90.49 Acquired absence of other specified parts of digestive tract
CPT/HCPCS: 36415; 74019; 74177; 80048; 80053; 81001; 84484; 85025; 86140; 86256; 86671; 99284; J2270; J2405; J2543; J2920; J7030; Q9967

== ENCOUNTER 2021-07-23 18:52 | Inpatient (IN) | payer MEDICARE ==
[~2021-07-23] VITALS: Ht 154.9 cm; Wt 89.9 kg
[~2021-07-23 18:52] MED LIST changes: +AUGMENTIN 500-1 EACH PO; +HYDRALAZINE HCL25 MG PO; +[UNRECOGNIZED DRUG - OTHER]
[2021-07-23] MEDS ORDERED: ONDANSETRON HCL INJ 2MG/ML 2ML 2 MG/ML VIAL IV STA (19:01)
[2021-07-23] MEDS ORDERED: Morphine 4mg INJECTION 4 MG/ML INJ IV STA (19:01)
[2021-07-23] MEDS ORDERED: SODIUM CHLORIDE 0.9% 1000ML 1,000 ML IV STA (19:01)
[2021-07-23 19:27] LABS: BASOPHILS % 0.2 % (0.0-1.0); EOSINOPHILS % 0.1 % (0.0-6.0); HEMOGLOBIN 12.9 g/dL (12.0-16.0); LYMPHOCYTES % 12.8 % (18.0-39.1); MEAN CORPUSCULAR HEMOGLOBIN 30.9 pg (28-32); MEAN CORPUSCULAR HGB CONC 31.5 g/dL (31-35); MEAN CORPUSCULAR VOLUME 98.1 fL (81-99); MONOCYTES # (AUTO) 1.9 (0.2-0.8); MONOCYTES % 12.1 % (4.4-11.3); NEUTROPHILS # (AUTO) 11.6 (2.1-6.9); NEUTROPHILS % 73.9 % (38.7-80.0); PLATELET COUNT 259 x10e3/uL (140-360); RED BLOOD COUNT 4.18 x10e6/uL (3.6-5.1); RED CELL DISTRIBUTION WIDTH 15.5 % (11.7-14.4)
[2021-07-23 19:40] LABS: ALBUMIN 3.4 g/dL (3.5-5.0); ALBUMIN/GLOBULIN RATIO 0.9 (0.8-2.0); ANION GAP 14.5 mmol/L (8-16); CALCIUM 8.2 mg/dL (8.4-10.2); CREATININE, SERUM 1.08 mg/dL (0.57-1.11); POTASSIUM 3.5 mmol/L (3.5-5.1)
[2021-07-23] MEDS ORDERED: IOPAMIDOL 370 MG/ML 100 ML INFUS..BTL INJ ONE (20:34)
[2021-07-23 21:42] LABS: CLARITY,URINE SL CLOUDY (CLEAR); COLOR,URINE YELLOW (YELLOW); KETONES,URINE NEGATIVE (NEGATIVE); LEUKOCYTE ESTERASE ,URINE NEGATIVE (NEGATIVE); NITRITE,URINE NEGATIVE (NEGATIVE); PROTEIN,URINE DIPSTICK NEGATIVE (NEGATIVE); URINE UROBILINOGEN 0.2 mg/dL (0.2 - 1)
[2021-07-23 21:52] LABS: BACTERIA,URINE FEW /HPF; MUCUS,URINE MODERATE (RARE); RBC,URINE 0-5 /HPF (0-5)
[2021-07-23] MEDS: SODIUM CHLORIDE 0.9% 1000ML 1,000 ML IV SCH (22:03)
[2021-07-23] MEDS: ONDANSETRON HCL INJ 2MG/ML 2ML 2 MG/ML VIAL IV PRN (23:10)
[2021-07-23] MEDS: Morphine 4mg INJECTION 4 MG/ML INJ IV PRN (23:12)
[2021-07-24] MEDS: Morphine 4mg INJECTION 4 MG/ML INJ IV PRN (04:49)
[2021-07-24] MEDS: ONDANSETRON HCL INJ 2MG/ML 2ML 2 MG/ML VIAL IV PRN (04:49)
[2021-07-24] MEDS: SODIUM CHLORIDE 0.9% 1000ML 1,000 ML IV SCH ×3 (05:20→23:36)
[2021-07-24 06:15] LABS: BASOPHILS % 0.2 % (0.0-1.0); EOSINOPHILS # (AUTO) 0.1 (0.0-0.4); EOSINOPHILS % 0.6 % (0.0-6.0); HEMATOCRIT 39.1 % (34.2-44.1); HEMOGLOBIN 11.9 g/dL (12.0-16.0); LYMPHOCYTES # (AUTO) 2.7 (1.0-3.2); LYMPHOCYTES % 20.6 % (18.0-39.1); MEAN CORPUSCULAR HEMOGLOBIN 31.2 pg (28-32); MEAN CORPUSCULAR HGB CONC 30.4 g/dL (31-35); MEAN CORPUSCULAR VOLUME 102.4 fL (81-99); MONOCYTES # (AUTO) 1.8 (0.2-0.8); MONOCYTES % 13.3 % (4.4-11.3); NEUTROPHILS # (AUTO) 8.4 (2.1-6.9); NEUTROPHILS % 64.1 % (38.7-80.0); PLATELET COUNT 203 x10e3/uL (140-360); RED BLOOD COUNT 3.82 x10e6/uL (3.6-5.1); RED CELL DISTRIBUTION WIDTH 15.9 % (11.7-14.4)
[2021-07-24 06:47] LABS: ALBUMIN 2.9 g/dL (3.5-5.0); ALBUMIN/GLOBULIN RATIO 0.9 (0.8-2.0); ANION GAP 12.8 mmol/L (8-16); CALCIUM 7.7 mg/dL (8.4-10.2); CREATININE, SERUM 1.08 mg/dL (0.57-1.11); POTASSIUM 3.8 mmol/L (3.5-5.1)
[2021-07-24 06:53] LABS: CREATINE KINASE MB 2.8 ng/mL (0-5.0)
[2021-07-24] MEDS ORDERED: METHYLPREDNISOLONE SOD SUCC 125 MG/2ML VIAL IV ONE (10:45)
[2021-07-24] MEDS ORDERED: BEBTELOVIMAB 175 MG INJ IV ONE (14:00)
[2021-07-24 15:00] VITALS: BP 144/66
[2021-07-24 15:30] VITALS: BP 144/65
[2021-07-24 17:52] VITALS: BP 144/65
[2021-07-24] MEDS: METHYLPREDNISOLONE SOD SUCC 125 MG/2ML VIAL IV SCH (18:16)
[2021-07-24 20:00] VITALS: BP 171/55
[2021-07-25] VITALS (9 sets, daily range): BP systolic 141–166; BP diastolic 56–88
[2021-07-25] MEDS: METHYLPREDNISOLONE SOD SUCC 125 MG/2ML VIAL IV SCH ×3 (02:24→18:25)
[2021-07-25] MEDS: SODIUM CHLORIDE 0.9% 1000ML 1,000 ML IV SCH ×3 (05:22→21:33)
[2021-07-25 07:54] LABS: BASOPHILS % 0.1 % (0.0-1.0); HEMATOCRIT 39.5 % (34.2-44.1); LYMPHOCYTES # (AUTO) 0.7 (1.0-3.2); LYMPHOCYTES % 8.3 % (18.0-39.1); MEAN CORPUSCULAR HEMOGLOBIN 30.8 pg (28-32); MEAN CORPUSCULAR HGB CONC 30.4 g/dL (31-35); MEAN CORPUSCULAR VOLUME 101.3 fL (81-99); MONOCYTES # (AUTO) 0.2 (0.2-0.8); MONOCYTES % 2.1 % (4.4-11.3); NEUTROPHILS # (AUTO) 7.1 (2.1-6.9); NEUTROPHILS % 88.6 % (38.7-80.0); PLATELET COUNT 211 x10e3/uL (140-360); RED CELL DISTRIBUTION WIDTH 15.6 % (11.7-14.4)
[2021-07-25 08:43] LABS: ALBUMIN 2.8 g/dL (3.5-5.0); ANION GAP 14.8 mmol/L (8-16); CALCIUM 7.8 mg/dL (8.4-10.2); CREATININE, SERUM 0.91 mg/dL (0.57-1.11); POTASSIUM 3.8 mmol/L (3.5-5.1)
[2021-07-25 08:44] LABS: ALBUMIN/GLOBULIN RATIO 0.9 (0.8-2.0); CHOL/HDL RATIO 2.8 (3.0-3.6)
[2021-07-25 08:51] LABS: THYROID STIMULATING HORMONE 0.239 uIU/mL (0.350-4.940)
[2021-07-25] MEDS: ONDANSETRON HCL INJ 2MG/ML 2ML 2 MG/ML VIAL IV PRN (19:55)
[2021-07-25] MEDS: Morphine 4mg INJECTION 4 MG/ML INJ IV PRN (19:55)
[2021-07-25] MEDS ORDERED: HYDROMORPHONE 1MG/1ML INJ IV STA (20:38)
[2021-07-26] VITALS (7 sets, daily range): BP systolic 148–167; BP diastolic 53–70
[2021-07-26] MEDS: METRONIDAZOLE 500MG/NS 100ML 100 ML IV SCH ×4 (01:00→18:18)
[2021-07-26] MEDS: METHYLPREDNISOLONE SOD SUCC 125 MG/2ML VIAL IV SCH ×3 (02:25→17:50)
[2021-07-26] MEDS: SODIUM CHLORIDE 0.9% 1000ML 1,000 ML IV SCH ×3 (05:23→21:50)
[2021-07-26 07:11] LABS: BASOPHILS % 0.1 % (0.0-1.0); HEMATOCRIT 35.7 % (34.2-44.1); HEMOGLOBIN 11.2 g/dL (12.0-16.0); LYMPHOCYTES # (AUTO) 0.6 (1.0-3.2); LYMPHOCYTES % 4.6 % (18.0-39.1); MEAN CORPUSCULAR HEMOGLOBIN 31.8 pg (28-32); MEAN CORPUSCULAR HGB CONC 31.4 g/dL (31-35); MEAN CORPUSCULAR VOLUME 101.4 fL (81-99); MONOCYTES # (AUTO) 0.2 (0.2-0.8); MONOCYTES % 1.8 % (4.4-11.3); NEUTROPHILS # (AUTO) 11.5 (2.1-6.9); NEUTROPHILS % 92.8 % (38.7-80.0); PLATELET COUNT 197 x10e3/uL (140-360); RED BLOOD COUNT 3.52 x10e6/uL (3.6-5.1); RED CELL DISTRIBUTION WIDTH 15.8 % (11.7-14.4)
[2021-07-26 07:36] LABS: ALBUMIN 2.6 g/dL (3.5-5.0); ALBUMIN/GLOBULIN RATIO 0.9 (0.8-2.0); ANION GAP 14.2 mmol/L (8-16); CALCIUM 7.5 mg/dL (8.4-10.2); CREATININE, SERUM 0.78 mg/dL (0.57-1.11); MAGNESIUM 2.2 MG/DL (1.3-2.1); POTASSIUM 4.2 mmol/L (3.5-5.1)
[2021-07-26 10:39] LABS: FREE T4 (FREE THYROXINE) 1.14 ng/dL (0.8-1.8)
[2021-07-26] MEDS: BISACODYL 10 MG SUPP PR SCH (21:45)
[2021-07-27] VITALS (8 sets, daily range): BP systolic 147–179; BP diastolic 46–69
[2021-07-27] MEDS: METRONIDAZOLE 500MG/NS 100ML 100 ML IV SCH ×4 (01:00→17:40)
[2021-07-27] MEDS: METHYLPREDNISOLONE SOD SUCC 125 MG/2ML VIAL IV SCH ×3 (03:00→17:40)
[2021-07-27] MEDS: SODIUM CHLORIDE 0.9% 1000ML 1,000 ML IV SCH ×2 (06:19→13:30)
[2021-07-27 07:01] LABS: BASOPHILS % 0.1 % (0.0-1.0); HEMATOCRIT 37.1 % (34.2-44.1); HEMOGLOBIN 11.6 g/dL (12.0-16.0); LYMPHOCYTES # (AUTO) 1.9 (1.0-3.2); LYMPHOCYTES % 14.3 % (18.0-39.1); MEAN CORPUSCULAR HEMOGLOBIN 31.4 pg (28-32); MEAN CORPUSCULAR HGB CONC 31.3 g/dL (31-35); MEAN CORPUSCULAR VOLUME 100.3 fL (81-99); MONOCYTES # (AUTO) 1.5 (0.2-0.8); MONOCYTES % 11.2 % (4.4-11.3); NEUTROPHILS # (AUTO) 9.6 (2.1-6.9); NEUTROPHILS % 73.9 % (38.7-80.0); PLATELET COUNT 196 x10e3/uL (140-360); RED CELL DISTRIBUTION WIDTH 15.8 % (11.7-14.4)
[2021-07-27 07:26] LABS: ALBUMIN 2.7 g/dL (3.5-5.0); ALBUMIN/GLOBULIN RATIO 0.9 (0.8-2.0); ANION GAP 12.7 mmol/L (8-16); CALCIUM 7.5 mg/dL (8.4-10.2); CREATININE, SERUM 0.81 mg/dL (0.57-1.11); MAGNESIUM 2.2 MG/DL (1.3-2.1); POTASSIUM 3.7 mmol/L (3.5-5.1)
[2021-07-27] MEDS: BISACODYL 10 MG SUPP PR SCH (08:38)
[2021-07-28] VITALS (8 sets, daily range): BP systolic 165–178; BP diastolic 49–72
[2021-07-28] MEDS: METRONIDAZOLE 500MG/NS 100ML 100 ML IV SCH ×4 (00:46→18:24)
[2021-07-28] MEDS: METHYLPREDNISOLONE SOD SUCC 125 MG/2ML VIAL IV SCH ×3 (02:00→18:24)
[2021-07-28] MEDS: SODIUM CHLORIDE 0.9% 1000ML 1,000 ML IV SCH ×3 (05:15→17:11)
[2021-07-28] MEDS ORDERED: HYDRALAZINE HCL 20 MG/ML VIAL IV PRN (10:45)
[2021-07-28] MEDS: Morphine 4mg INJECTION 4 MG/ML INJ IV PRN (19:57)
[2021-07-28] MEDS: ONDANSETRON HCL INJ 2MG/ML 2ML 2 MG/ML VIAL IV PRN (22:00)
[2021-07-29] VITALS (30 sets, daily range): BP systolic 97–196; BP diastolic 39–73
[2021-07-29] MEDS: METRONIDAZOLE 500MG/NS 100ML 100 ML IV SCH ×4 (00:51→18:44)
[2021-07-29] MEDS: SODIUM CHLORIDE 0.9% 1000ML 1,000 ML IV SCH ×3 (04:38→22:25)
[2021-07-29] MEDS: METHYLPREDNISOLONE SOD SUCC 125 MG/2ML VIAL IV SCH ×2 (04:38→10:00)
[2021-07-29 06:09] LABS: BASOPHILS % 0.1 % (0.0-1.0); HEMATOCRIT 38.2 % (34.2-44.1); HEMOGLOBIN 12.3 g/dL (12.0-16.0); LYMPHOCYTES % 7.9 % (18.0-39.1); MEAN CORPUSCULAR HEMOGLOBIN 31.1 pg (28-32); MEAN CORPUSCULAR HGB CONC 32.2 g/dL (31-35); MEAN CORPUSCULAR VOLUME 96.5 fL (81-99); MONOCYTES # (AUTO) 0.7 (0.2-0.8); NEUTROPHILS # (AUTO) 10.5 (2.1-6.9); NEUTROPHILS % 85.3 % (38.7-80.0); PLATELET COUNT 180 x10e3/uL (140-360); RED BLOOD COUNT 3.96 x10e6/uL (3.6-5.1); RED CELL DISTRIBUTION WIDTH 15.3 % (11.7-14.4)
[2021-07-29 06:33] LABS: ALBUMIN 2.8 g/dL (3.5-5.0); ALBUMIN/GLOBULIN RATIO 0.9 (0.8-2.0); ANION GAP 13.6 mmol/L (8-16); CALCIUM 7.8 mg/dL (8.4-10.2); CREATININE, SERUM 0.69 mg/dL (0.57-1.11); POTASSIUM 3.6 mmol/L (3.5-5.1)
[2021-07-29] MEDS: CEFTRIAXONE 2 GM in SODIUM CHLORIDE 0.9% 100 ML IV SCH (09:24)
[2021-07-29] MEDS ORDERED: HEPARIN SOD/SOD CHLORIDE 1,000 ML ONE (09:46)
[2021-07-29] MEDS ORDERED: ETOMIDATE 40 MG/ 20ML VIAL IV ONE (10:50)
[2021-07-29] MEDS ORDERED: ALBUMIN 25% 12.5GM 50ML 50 ML IV ONE ×2 (12:20→12:22)
[2021-07-29] MEDS ORDERED: ACETAMINOPHEN 1000 MG/100 ML 100 ML IV ONE (12:24)
[2021-07-29] MEDS ORDERED: SEVOFLURANE INHAL SOLN 250 ML PEN BTL ONE (12:53)
[2021-07-29] MEDS ORDERED: NEOSTIGMINE 1 MG/ML 10ML VIAL ONE (12:53)
[2021-07-29] MEDS ORDERED: DEXAMETHASONE SOD PHOS INJ 4 MG/ML SDV ONE (12:53)
[2021-07-29] MEDS ORDERED: ROCURONIUM BROMIDE 10 MG/ML 5ML VIAL IV ONE (12:53)
[2021-07-29] MEDS ORDERED: LIDOCAINE HCL 2% LOCAL INJ 5 ML SDV VIAL INJ ONE (12:53)
[2021-07-29] MEDS ORDERED: EPHEDRINE SULFATE INJ 50 MG/ML VIAL ONE (12:53)
[2021-07-29] MEDS ORDERED: PROPOFOL IV EMULSION 10 MG/ML 20 ML VIAL ONE (12:53)
[2021-07-29] MEDS ORDERED: ESMOLOL HCL 100MG/10ML 10 MG/ML VIAL ONE (12:53)
[2021-07-29] MEDS ORDERED: GLYCOPYRROLATE INJ 0.2 MG/ML VIAL ONE (12:53)
[2021-07-29] MEDS ORDERED: PHENYLEPHRINE HCL 1% 10 MG/ML VIAL ONE (12:53)
[2021-07-29] MEDS ORDERED: ONDANSETRON HCL INJ 2MG/ML 2ML 2 MG/ML VIAL ONE (12:53)
[2021-07-29] MEDS ORDERED: POVIDONE IODINE 0.05% 0.05 % ML PO ONE (12:53)
[2021-07-29] MEDS ORDERED: FENTANYL CITRATE/PF 100MCG/2 ML INJ ONE ×2 (13:09→14:03)
[2021-07-29] MEDS ORDERED: SUGAMMADEX SODIUM 200 MG/2 ML VIAL IV ONE (13:23)
[2021-07-29] MEDS: ONDANSETRON HCL INJ 2MG/ML 2ML 2 MG/ML VIAL IV PRN ×3 (14:33→22:25)
[2021-07-29] MEDS: HYDROMORPHONE 1MG/1ML INJ IV PRN ×3 (14:52→22:26)
[2021-07-29] MEDS: HYDROCORTISONE SOD SUCCINATE 100 MG VIAL IV SCH ×2 (15:45→22:25)
[2021-07-29] MEDS: ACETAMINOPHEN 1000 MG/100 ML IV PRN (16:30)
[2021-07-29] MEDS ORDERED: HYDRALAZINE HCL 20 MG/ML VIAL IV PRN (18:45)
[2021-07-30] VITALS (29 sets, daily range): BP systolic 119–171; BP diastolic 42–138
[2021-07-30] MEDS: METRONIDAZOLE 500MG/NS 100ML 100 ML IV SCH ×4 (00:10→18:49)
[2021-07-30] MEDS: ONDANSETRON HCL INJ 2MG/ML 2ML 2 MG/ML VIAL IV PRN ×2 (04:05→08:59)
[2021-07-30] MEDS: HYDROMORPHONE 1MG/1ML INJ IV PRN ×3 (04:05→23:34)
[2021-07-30 05:04] LABS: BASOPHILS % 0.1 % (0.0-1.0); HEMATOCRIT 26.3 % (34.2-44.1); HEMOGLOBIN 8.2 g/dL (12.0-16.0); LYMPHOCYTES # (AUTO) 1.1 (1.0-3.2); LYMPHOCYTES % 4.3 % (18.0-39.1); MEAN CORPUSCULAR HEMOGLOBIN 31.4 pg (28-32); MEAN CORPUSCULAR HGB CONC 31.2 g/dL (31-35); MEAN CORPUSCULAR VOLUME 100.8 fL (81-99); MONOCYTES # (AUTO) 2.2 (0.2-0.8); MONOCYTES % 8.9 % (4.4-11.3); NEUTROPHILS # (AUTO) 21.8 (2.1-6.9); NEUTROPHILS % 86.3 % (38.7-80.0); PLATELET COUNT 145 x10e3/uL (140-360); RED BLOOD COUNT 2.61 x10e6/uL (3.6-5.1); RED CELL DISTRIBUTION WIDTH 16.1 % (11.7-14.4)
[2021-07-30 05:19] LABS: ALBUMIN 2.8 g/dL (3.5-5.0); ALBUMIN/GLOBULIN RATIO 1.6 (0.8-2.0); ANION GAP 11.3 mmol/L (8-16); CALCIUM 7.3 mg/dL (8.4-10.2); CREATININE, SERUM 0.76 mg/dL (0.57-1.11); POTASSIUM 3.3 mmol/L (3.5-5.1)
[2021-07-30] MEDS: HYDROCORTISONE SOD SUCCINATE 100 MG VIAL IV SCH ×2 (06:09→14:59)
[2021-07-30] MEDS: SODIUM CHLORIDE 0.9% 1000ML 1,000 ML IV SCH ×2 (08:57→20:31)
[2021-07-30] MEDS: CEFTRIAXONE 2 GM in SODIUM CHLORIDE 0.9% 100 ML IV SCH (09:00)
[2021-07-30 09:26] LABS: LYMPHOCYTES % (MANUAL) 8 % (19-48); MONOCYTES % (MANUAL) 13 % (3.4-9.0); NEUTROPHILS % (MANUAL) 79 % (40-74); PLATELET ESTIMATE SLIGHTLY DECREASED; PLATELET MORPHOLOGY COMMENT NORMAL
[2021-07-30 09:27] LABS: RBC MORPHOLOGY COMMENT NORMAL
[2021-07-30] MEDS ORDERED: POTASSIUM CHLORIDE 20MEQ/100ML 100 ML IV ONE (11:30)
[2021-07-30] MEDS: ACETAMINOPHEN 1000 MG/100 ML IV PRN (15:05)
[2021-07-31] VITALS (9 sets, daily range): BP systolic 93–173; BP diastolic 49–71
[2021-07-31 05:56] LABS: BASOPHILS % 0.1 % (0.0-1.0); EOSINOPHILS # (AUTO) 0.1 (0.0-0.4); EOSINOPHILS % 0.4 % (0.0-6.0); HEMATOCRIT 24.4 % (34.2-44.1); HEMOGLOBIN 7.7 g/dL (12.0-16.0); LYMPHOCYTES # (AUTO) 1.3 (1.0-3.2); LYMPHOCYTES % 5.8 % (18.0-39.1); MEAN CORPUSCULAR HEMOGLOBIN 30.9 pg (28-32); MEAN CORPUSCULAR HGB CONC 31.6 g/dL (31-35); MONOCYTES # (AUTO) 1.8 (0.2-0.8); MONOCYTES % 8.2 % (4.4-11.3); NEUTROPHILS # (AUTO) 18.6 (2.1-6.9); NEUTROPHILS % 84.3 % (38.7-80.0); PLATELET COUNT 105 x10e3/uL (140-360); RED BLOOD COUNT 2.49 x10e6/uL (3.6-5.1); RED CELL DISTRIBUTION WIDTH 16.5 % (11.7-14.4)
[2021-07-31] MEDS: SODIUM CHLORIDE 0.9% 1000ML 1,000 ML IV SCH ×2 (06:08→17:57)
[2021-07-31] MEDS: METRONIDAZOLE 500MG/NS 100ML 100 ML IV SCH ×5 (06:08→20:41)
[2021-07-31 07:01] LABS: ALBUMIN 2.4 g/dL (3.5-5.0); ALBUMIN/GLOBULIN RATIO 1.1 (0.8-2.0); ANION GAP 10.8 mmol/L (8-16); CALCIUM 7.2 mg/dL (8.4-10.2); CREATININE, SERUM 0.66 mg/dL (0.57-1.11)
[2021-07-31 07:12] LABS: POTASSIUM 2.8 mmol/L (3.5-5.1)
[2021-07-31] MEDS ORDERED: POTASSIUM CHLORIDE 20MEQ/100ML 100 ML IV ONE ×2 (07:15→09:45)
[2021-07-31] MEDS: HYDROCORTISONE SOD SUCCINATE 100 MG VIAL IV SCH ×2 (09:00→19:49)
[2021-07-31] MEDS ORDERED: ACETAMINOPHEN 325 MG TAB PO PRN (17:15)
[2021-07-31] MEDS ORDERED: SODIUM CHLORIDE 0.9% 100 ML ONE (17:15)
[2021-07-31] MEDS: CEFTRIAXONE 2 GM in SODIUM CHLORIDE 0.9% 100 ML IV SCH (17:57)
[2021-07-31] MEDS ORDERED: SODIUM CHLORIDE 0.9% 250ML 250 ML ONE (18:11)
[2021-07-31] MEDS: BISACODYL 10 MG SUPP PR SCH (20:47)
[2021-08-01] VITALS (7 sets, daily range): BP systolic 124–160; BP diastolic 49–60
[2021-08-01] MEDS: METRONIDAZOLE 500MG/NS 100ML 100 ML IV SCH ×5 (01:10→23:52)
[2021-08-01] MEDS: SODIUM CHLORIDE 0.9% 1000ML 1,000 ML IV SCH ×2 (01:13→11:30)
[2021-08-01 07:26] LABS: ANION GAP 13.8 mmol/L (8-16); CREATININE, SERUM 0.6 mg/dL (0.57-1.11)
[2021-08-01 07:30] LABS: POTASSIUM 2.8 mmol/L (3.5-5.1)
[2021-08-01 07:46] LABS: ALBUMIN/GLOBULIN RATIO 0.9 (0.8-2.0)
[2021-08-01 07:46] LABS: BASOPHILS % 0.1 % (0.0-1.0); EOSINOPHILS # (AUTO) 0.1 (0.0-0.4); EOSINOPHILS % 0.5 % (0.0-6.0); HEMATOCRIT 23.9 % (34.2-44.1); HEMOGLOBIN 7.4 g/dL (12.0-16.0); LYMPHOCYTES # (AUTO) 1.8 (1.0-3.2); LYMPHOCYTES % 8.7 % (18.0-39.1); MEAN CORPUSCULAR HEMOGLOBIN 30.8 pg (28-32); MEAN CORPUSCULAR VOLUME 99.6 fL (81-99); MONOCYTES # (AUTO) 1.6 (0.2-0.8); MONOCYTES % 7.6 % (4.4-11.3); NEUTROPHILS # (AUTO) 16.7 (2.1-6.9); NEUTROPHILS % 81.8 % (38.7-80.0); PLATELET COUNT 117 x10e3/uL (140-360); RED CELL DISTRIBUTION WIDTH 16.9 % (11.7-14.4)
[2021-08-01] MEDS: BISACODYL 10 MG SUPP PR SCH (08:00)
[2021-08-01] MEDS: HYDROCORTISONE SOD SUCCINATE 100 MG VIAL IV SCH (09:10)
[2021-08-01] MEDS: CEFTRIAXONE 2 GM in SODIUM CHLORIDE 0.9% 100 ML IV SCH (09:10)
[2021-08-01] MEDS ORDERED: POTASSIUM CHLORIDE 20 MEQ TAB CR PO NR ×2 (11:34→12:30)
[2021-08-01] MEDS ORDERED: LOPERAMIDE HCL 2 MG CAP PO PRN (14:30)
[2021-08-02] VITALS (8 sets, daily range): BP systolic 128–160; BP diastolic 41–67
[2021-08-02] MEDS: SODIUM CHLORIDE 0.9% 1000ML 1,000 ML IV SCH ×2 (06:11→23:38)
[2021-08-02] MEDS: METRONIDAZOLE 500MG/NS 100ML 100 ML IV SCH ×4 (06:11→23:37)
[2021-08-02 06:27] LABS: BASOPHILS % 0.2 % (0.0-1.0); EOSINOPHILS # (AUTO) 0.1 (0.0-0.4); EOSINOPHILS % 0.5 % (0.0-6.0); LYMPHOCYTES # (AUTO) 1.2 (1.0-3.2); LYMPHOCYTES % 9.6 % (18.0-39.1); MEAN CORPUSCULAR HEMOGLOBIN 30.5 pg (28-32); MEAN CORPUSCULAR HGB CONC 31.2 g/dL (31-35); MONOCYTES # (AUTO) 1.1 (0.2-0.8); MONOCYTES % 8.4 % (4.4-11.3); NEUTROPHILS # (AUTO) 10.1 (2.1-6.9); NEUTROPHILS % 80.1 % (38.7-80.0); PLATELET COUNT 104 x10e3/uL (140-360); RED BLOOD COUNT 2.03 x10e6/uL (3.6-5.1); RED CELL DISTRIBUTION WIDTH 17.2 % (11.7-14.4)
[2021-08-02 06:32] LABS: HEMATOCRIT 19.9 % (34.2-44.1); HEMOGLOBIN 6.2 g/dL (12.0-16.0)
[2021-08-02 07:02] LABS: ANION GAP 11.1 mmol/L (8-16); CALCIUM 7.1 mg/dL (8.4-10.2); CREATININE, SERUM 0.58 mg/dL (0.57-1.11); POTASSIUM 3.1 mmol/L (3.5-5.1)
[2021-08-02 08:33] LABS: BASOPHILS % 0.1 % (0.0-1.0); EOSINOPHILS # (AUTO) 0.1 (0.0-0.4); EOSINOPHILS % 0.8 % (0.0-6.0); HEMOGLOBIN 7.1 g/dL (12.0-16.0); LYMPHOCYTES # (AUTO) 1.8 (1.0-3.2); LYMPHOCYTES % 12.3 % (18.0-39.1); MEAN CORPUSCULAR HEMOGLOBIN 31.6 pg (28-32); MEAN CORPUSCULAR HGB CONC 31.6 g/dL (31-35); MONOCYTES # (AUTO) 1.3 (0.2-0.8); MONOCYTES % 8.8 % (4.4-11.3); NEUTROPHILS # (AUTO) 11.4 (2.1-6.9); NEUTROPHILS % 77.3 % (38.7-80.0); PLATELET COUNT 116 x10e3/uL (140-360); RED BLOOD COUNT 2.25 x10e6/uL (3.6-5.1); RED CELL DISTRIBUTION WIDTH 17.4 % (11.7-14.4)
[2021-08-02 08:38] LABS: HEMATOCRIT 22.5 % (34.2-44.1)
[2021-08-02] MEDS: IRON SUCROSE 100 MG in SODIUM CHLORIDE 0.9% 100 ML 100 ML IV SCH (09:20)
[2021-08-02] MEDS: HYDROCORTISONE SOD SUCCINATE 100 MG VIAL IV SCH (09:21)
[2021-08-02] MEDS: CEFTRIAXONE 2 GM in SODIUM CHLORIDE 0.9% 100 ML IV SCH (09:21)
[2021-08-02] MEDS ORDERED: POTASSIUM CHLORIDE 20 MEQ TAB CR PO NR (12:00)
[2021-08-02 13:31] LABS: BASOPHILS % 0.1 % (0.0-1.0); EOSINOPHILS % 0.1 % (0.0-6.0); HEMATOCRIT 23.3 % (34.2-44.1); HEMOGLOBIN 7.3 g/dL (12.0-16.0); LYMPHOCYTES # (AUTO) 0.4 (1.0-3.2); LYMPHOCYTES % 2.8 % (18.0-39.1); MEAN CORPUSCULAR HEMOGLOBIN 30.8 pg (28-32); MEAN CORPUSCULAR HGB CONC 31.3 g/dL (31-35); MEAN CORPUSCULAR VOLUME 98.3 fL (81-99); MONOCYTES # (AUTO) 0.6 (0.2-0.8); MONOCYTES % 4.1 % (4.4-11.3); NEUTROPHILS % 91.9 % (38.7-80.0); PLATELET COUNT 129 x10e3/uL (140-360); RED BLOOD COUNT 2.37 x10e6/uL (3.6-5.1); RED CELL DISTRIBUTION WIDTH 17.4 % (11.7-14.4)
[2021-08-02 14:09] LABS: FERRITIN 438.24 ng/mL (4.63-204.00)
[2021-08-02] MEDS ORDERED: HYDROCODONE/APAP 7.5MG-325MG 1 EA TAB PO PRN (14:15)
[2021-08-03] VITALS (8 sets, daily range): BP systolic 108–157; BP diastolic 52–76
[2021-08-03] MEDS: SODIUM CHLORIDE 0.9% 1000ML 1,000 ML IV SCH (03:09)
[2021-08-03] MEDS: METRONIDAZOLE 500MG/NS 100ML 100 ML IV SCH ×3 (06:10→20:07)
[2021-08-03 06:44] LABS: BASOPHILS % 0.1 % (0.0-1.0); EOSINOPHILS # (AUTO) 0.1 (0.0-0.4); EOSINOPHILS % 0.9 % (0.0-6.0); LYMPHOCYTES # (AUTO) 1.6 (1.0-3.2); LYMPHOCYTES % 15.7 % (18.0-39.1); MEAN CORPUSCULAR HGB CONC 31.5 g/dL (31-35); MEAN CORPUSCULAR VOLUME 98.6 fL (81-99); MONOCYTES # (AUTO) 1.1 (0.2-0.8); MONOCYTES % 10.7 % (4.4-11.3); NEUTROPHILS # (AUTO) 7.2 (2.1-6.9); NEUTROPHILS % 71.7 % (38.7-80.0); PLATELET COUNT 116 x10e3/uL (140-360); RED BLOOD COUNT 2.16 x10e6/uL (3.6-5.1); RED CELL DISTRIBUTION WIDTH 17.8 % (11.7-14.4)
[2021-08-03 06:46] LABS: HEMOGLOBIN 6.7 g/dL (12.0-16.0)
[2021-08-03 06:47] LABS: HEMATOCRIT 21.3 % (34.2-44.1)
[2021-08-03 06:54] LABS: ANION GAP 10.1 mmol/L (8-16); CALCIUM 7.1 mg/dL (8.4-10.2); CREATININE, SERUM 0.59 mg/dL (0.57-1.11); POTASSIUM 3.1 mmol/L (3.5-5.1)
[2021-08-03] MEDS ORDERED: SODIUM CHLORIDE 0.9% 250ML 250 ML IV ONE (08:30)
[2021-08-03] MEDS ORDERED: POTASSIUM CHLORIDE 20 MEQ TAB CR PO ONE ×2 (09:00→11:00)
[2021-08-03] MEDS: CEFTRIAXONE 2 GM in SODIUM CHLORIDE 0.9% 100 ML IV SCH (09:58)
[2021-08-03] MEDS: HYDROCORTISONE SOD SUCCINATE 100 MG VIAL IV SCH (10:00)
[2021-08-03] MEDS: IRON SUCROSE 100 MG in SODIUM CHLORIDE 0.9% 100 ML 100 ML IV SCH (10:01)
[2021-08-03] MEDS ORDERED: SODIUM CHLORIDE 0.9% 250ML 250 ML ONE (13:09)
[2021-08-03 22:50] LABS: HEMATOCRIT 28.3 % (34.2-44.1); HEMOGLOBIN 9.1 g/dL (12.0-16.0)
[2021-08-04] VITALS (7 sets, daily range): BP systolic 132–172; BP diastolic 42–71
[2021-08-04] MEDS: METRONIDAZOLE 500MG/NS 100ML 100 ML IV SCH ×4 (02:25→20:14)
[2021-08-04] MEDS: ONDANSETRON HCL INJ 2MG/ML 2ML 2 MG/ML VIAL IV PRN (03:28)
[2021-08-04] MEDS: CEFTRIAXONE 2 GM in SODIUM CHLORIDE 0.9% 100 ML IV SCH (08:50)
[2021-08-04] MEDS: IRON SUCROSE 100 MG in SODIUM CHLORIDE 0.9% 100 ML 100 ML IV SCH (09:00)
[2021-08-04] MEDS ORDERED: FUROSEMIDE INJ 10 MG/ML 4 ML VIAL IV ONE (11:00)
[2021-08-04] MEDS: POTASSIUM CHLORIDE 20 MEQ TAB CR PO SCH ×2 (12:23→16:37)
[2021-08-05 00:04] VITALS: BP 158/49
[2021-08-05] MEDS: METRONIDAZOLE 500MG/NS 100ML 100 ML IV SCH ×2 (02:15→08:35)
[2021-08-05 03:53] VITALS: BP 141/65
[2021-08-05 06:19] LABS: BASOPHILS % 0.1 % (0.0-1.0); EOSINOPHILS # (AUTO) 0.1 (0.0-0.4); EOSINOPHILS % 1.4 % (0.0-6.0); HEMATOCRIT 28.5 % (34.2-44.1); HEMOGLOBIN 9.4 g/dL (12.0-16.0); LYMPHOCYTES # (AUTO) 1.2 (1.0-3.2); LYMPHOCYTES % 12.2 % (18.0-39.1); MEAN CORPUSCULAR HEMOGLOBIN 32.5 pg (28-32); MEAN CORPUSCULAR VOLUME 98.6 fL (81-99); MONOCYTES % 10.4 % (4.4-11.3); NEUTROPHILS # (AUTO) 7.4 (2.1-6.9); NEUTROPHILS % 74.5 % (38.7-80.0); PLATELET COUNT 102 x10e3/uL (140-360); RED BLOOD COUNT 2.89 x10e6/uL (3.6-5.1)
[2021-08-05 06:46] LABS: ALBUMIN 2.2 g/dL (3.5-5.0); ALBUMIN/GLOBULIN RATIO 0.8 (0.8-2.0); ANION GAP 13.5 mmol/L (8-16); CALCIUM 7.3 mg/dL (8.4-10.2); CREATININE, SERUM 0.66 mg/dL (0.57-1.11); POTASSIUM 3.5 mmol/L (3.5-5.1)
[2021-08-05 08:00] VITALS: BP 127/78
[2021-08-05 08:11] VITALS: BP 127/78
[2021-08-05] MEDS: CEFTRIAXONE 2 GM in SODIUM CHLORIDE 0.9% 100 ML IV SCH (09:58)
[2021-08-05] MEDS: IRON SUCROSE 100 MG in SODIUM CHLORIDE 0.9% 100 ML 100 ML IV SCH (09:58)
[2021-08-05] MEDS ORDERED: ONDANSETRON HCL 4 MG ORAL DISINTEGRATING TAB PO PRN (10:45)
[2021-08-05] MEDS ORDERED: PANTOPRAZOLE SOD 40 MG TABEC PO SCH (14:00)
[2021-08-05] MEDS ORDERED: METRONIDAZOLE 500 MG TAB PO SCH (14:00)
== END 2021-08-05 10:52 | disposition home or self-care (01) | DRG 329 ==
LOC: ER 18:58 → ERHOLD 21:28 → MED/SURG2 07-24 15:07 → ICU 07-29 12:44 → MED/SURG3 07-30 22:34
PROC: 0DB80ZZ Excision of Small Intestine, Open Approach (ICD-10-PCS; 2021-07-29)
PROC: 0DNU0ZZ Release Omentum, Open Approach (ICD-10-PCS; 2021-07-29)
PROC: 0DBF0ZZ Excision of Right Large Intestine, Open Approach (ICD-10-PCS; principal; 2021-07-29 10:45)
PROC: 30233N1 Transfusion of Nonautologous Red Blood Cells into Peripheral Vein, Percutaneous Approach (ICD-10-PCS; 2021-08-03)
DX: K50.912 Crohn's disease, unspecified, with intestinal obstruction (principal); U07.1 COVID-19; M06.9 Rheumatoid arthritis, unspecified; I25.10 Atherosclerotic heart disease of native coronary artery without angina pectoris; E78.5 Hyperlipidemia, unspecified; Z86.718 Personal history of other venous thrombosis and embolism; Z79.01 Long term (current) use of anticoagulants; J38.02 Paralysis of vocal cords and larynx, bilateral; K57.90 Diverticulosis of intestine, part unspecified, without perforation or abscess without bleeding; G47.33 Obstructive sleep apnea (adult) (pediatric); Z95.828 Presence of other vascular implants and grafts; I49.8 Other specified cardiac arrhythmias; Z86.74 Personal history of sudden cardiac arrest; Z20.822 Contact with and (suspected) exposure to COVID-19; D64.9 Anemia, unspecified; E87.6 Hypokalemia; E66.9 Obesity, unspecified; Z68.37 Body mass index [BMI] 37.0-37.9, adult; I12.9 Hypertensive chronic kidney disease with stage 1 through stage 4 chronic kidney disease, or unspecified chronic kidney disease; N18.9 Chronic kidney disease, unspecified
CPT/HCPCS: 36415; 74018; 74019; 74022; 74177; 80048; 80053; 80061; 81001; 82270; 82550; 82553; 82607; 82728; 82746; 83540; 83690; 83735; 84439; 84443; 84466; 84479; 84480; 84484; 85014; 85018; 85025; 86301; 86850; 86900; 86920; 88304; 88307; 93005; 94799; 96361; 97139; 99251; 99284; C1713; J0360; J0696; J1100; J1170; J1720; J1756; J1940; J2001; J2270; J2370; J2405; J2543; J2710; J2930; J3010; J3480; J7030; J7050; P9016; Q9967

== ENCOUNTER 2023-12-10 09:21 | Emergency (ER) | payer MEDICARE ==
[~2023-12-10] VITALS: Ht 154.9 cm; Wt 89.8 kg
[2023-12-10 09:25] VITALS: PULSE 74; RESP 19; TEMP 98.6; O2SAT 98
[2023-12-10] MEDS ORDERED: METHOCARBAMOL500 MG PO (10:20)
== END 2023-12-10 10:28 | disposition home or self-care (01) ==
LOC: ER 09:29
DX: M54.50 Low back pain, unspecified (principal); M62.830 Muscle spasm of back; I10 Essential (primary) hypertension; I25.10 Atherosclerotic heart disease of native coronary artery without angina pectoris; E78.5 Hyperlipidemia, unspecified; N28.9 Disorder of kidney and ureter, unspecified; M06.9 Rheumatoid arthritis, unspecified; M19.09 Primary osteoarthritis, other specified site; I25.2 Old myocardial infarction; Z86.718 Personal history of other venous thrombosis and embolism
CPT/HCPCS: 99283